=== PATIENT | male | born 1935 | race Caucasian/White ===

== ENCOUNTER 2017-05-18 10:12 | Inpatient (IN) | payer MEDICARE, BC ==
[~2017-05-18] VITALS: Ht 175.3 cm; Wt 71.5 kg
[~2017-05-18 10:12] MED LIST: ACET325T PO; AMBI5TAB PO; AMIO200T PO; AMLO5TAB2 PO; ASPI1TAB69 PO; ATOR1TAB18 PO; CLIN1CAP5 PO; HYDR25TA35 PO; METO25TA6 PO; MILKSUS PO; NITR1SUB3 SL; OMEP20TA PO; SITA1TAB2 PO; TRAM50TA PO
--- NOTE | 2017-05-18 11:00 | PD ---
HPI Chief Complaint: General Weakness Time Seen by Provider: 10:44 Travel History International Travel<30 days: No Contact w/Intl Traveler<30days: No Traveled to known affect area: No History of Present Illness HPI 82-year-old male complains of generalized malaise and weakness. Patient has intermittent abdominal pain with bowel incontinence for the past 2 weeks. Patient was seen by personal physician and referred to GI specialist Dr. Law. Patient had an MRI of the abdomen done at [facility] recently. MRI was positive for gallstone and fluid in the lung. Patient's daughter reported patient has generalized malaise and weakness for the past week. Patient also complaint of dysuria for the past week. Patient's daughter states the patient has increasing lower extremity edema for the past week also. Patient complains shortness of breath. Patient denies any coughing. Patient' s daughter states the patient has been contacted chested for the past week. Patient daughter states patient has been confused and with hallucination recently. Patient daughter states the patient fell this morning however did not injure himself. Patient has history of hypertension, diabetes, CHF. Patient has been seen by Dr. Oviedo. [facility] Past Medical History Congestive Heart Failure: Yes Diabetes: Yes Patient Takes Glucophage: No Diminished Hearing: Yes Hypertension: Yes Integumentary: Yes (DRY, SCALY SKIN ) Tetanus Vaccination: Unknown ?: Not Past Surgical History Coronary Stent: Yes Social History Alcohol Use: Yes Tobacco Use: Yes Substance Use: No Allergies-Medications (Allergen,Severity, Reaction): Coded Allergies: No Known Allergies (Unverified , 05/18/17) Reported Meds & Prescriptions Reported Meds & Active Scripts Active Tramadol (Tramadol HCl) 50 Mg Tab 50 Mg PO Q6H PRN Reported Trazodone (Trazodone HCl) 100 Mg Tablet 200 Mg PO HS Aspirin 81 Mg Chew 200 Mg CHEW BID Nitroglycerin SL (Nitroglycerin) 0.4 Mg Subl 0.4 Mg SL DIRECTED PRN ONE TABLET UNDER THE TONGUE NEEDED FOR CHEST PAIN, MAY REPEAT EVERY FIVE MINUTES FOR A TOTAL OF 3 DOSES OR CALL 911 IF NO RELIEF Januvia (Sitagliptin Phosphate) 100 Mg Tab 100 Mg PO DAILY Omeprazole 20 Mg Tab 20 Mg PO DAILY Metoprolol Succinate ER 24 HR (Metoprolol Succinate) 25 Mg Tab 25 Mg PO BID Ambien (Zolpidem Tartrate) 5 Mg Tab 5 Mg PO HS PRN Review of Systems General / Constitutional: No: Fever Eyes: No: Visual changes HENT: No: Headaches Cardiovascular: No: Chest Pain or Discomfort Respiratory: No: Shortness of Breath Gastrointestinal: Positive: Abdominal Pain Genitourinary: Positive: Dysuria Musculoskeletal: No: Pain Skin: No Rash Neurologic: No: Weakness Psychiatric: No: Depression Endocrine: No: Polydipsia Hematologic/Lymphatic: No: Easy Bruising Physical Exam Narrative GENERAL: Well-nourished, well-developed patient. SKIN: Focused skin assessment warm/dry. HEAD: Normocephalic. EYES: No scleral icterus. No injection or drainage. NECK: Supple, trachea midline. No JVD or lymphadenopathy. CARDIOVASCULAR: Regular rate and rhythm without murmurs, gallops, or rubs. RESPIRATORY: Breath sounds equal bilaterally. No accessory muscle use. Rhonchi at the bases. GASTROINTESTINAL: Abdomen soft, non-tender, nondistended. MUSCULOSKELETAL: Patient has +2 pitting edema most remedy. BACK: Nontender without obvious deformity. No CVA tenderness. Neurologic exam: Patient awake and alert oriented to person. Patient moves all extremity well. No obvious focal neurological deficit. Data Data Last Documented VS Vital Signs Date Time Temp Pulse Resp B/P Pulse Ox O2 Delivery O2 Flow Rate FiO2 05/18/17 12:27 78 20 191/97 96 Room Air Orders Electrocardiogram (05/18/17 10:53) Complete Blood Count With Diff (05/18/17 10:53) Comprehensive Metabolic Panel (05/18/17 10:53) Creatine Kinase (Cpk) (05/18/17 10:53) Troponin I (05/18/17 10:53) B-Type Natriuretic Peptide (05/18/17 10:53) Prothrombin Time / Inr (Pt) (05/18/17 10:53) Act Partial Throm Time (Ptt) (05/18/17 10:53) Blood Culture (05/18/17 10:53) Urinalysis - C+S If Indicated (05/18/17 10:53) Magnesium (Mg) (05/18/17 10:53) Thyroid Stimulating Hormone (05/18/17 10:53) Phosphorus (Po4) (05/18/17 10:53) Chest, Single Ap (05/18/17 10:53) Ct Brain W/O Iv Contrast(Rout) (05/18/17 10:53) Iv Access Insert/Monitor (05/18/17 10:53) Ecg Monitoring (05/18/17 10:53) Oximetry (05/18/17 10:53) Lactic Acid (05/18/17 10:53) Urinary Catheter Insert/Apply (05/18/17 12:04) Urine Culture (05/18/17 12:15) Prothrombin Time / Inr (Pt) (05/18/17 13:26) Act Partial Throm Time (Ptt) (05/18/17 13:26) Labs Laboratory Tests Test 05/18/17 05/18/17 11:45 12:15 White Blood Count 8.7 TH/MM3 Red Blood Count 4.75 MIL/MM3 Hemoglobin 14.2 GM/DL Hematocrit 43.6 % Mean Corpuscular Volume 91.7 FL Mean Corpuscular Hemoglobin 29.8 PG Mean Corpuscular Hemoglobin 32.5 % Concent Red Cell Distribution Width 14.2 % Platelet Count 158 TH/MM3 Mean Platelet Volume 7.3 FL Neutrophils (%) (Auto) 74.1 % Lymphocytes (%) (Auto) 14.3 % Monocytes (%) (Auto) 9.1 % Eosinophils (%) (Auto) 1.9 % Basophils (%) (Auto) 0.6 % Neutrophils # (Auto) 6.5 TH/MM3 Lymphocytes # (Auto) 1.2 TH/MM3 Monocytes # (Auto) 0.8 TH/MM3 Eosinophils # (Auto) 0.2 TH/MM3 Basophils # (Auto) 0.1 TH/MM3 CBC Comment DIFF FINAL Differential Comment Prothrombin Time 35.5 SEC Prothromb Time International 3.1 RATIO Ratio Activated Partial GREATER THAN Thromboplast Time 277.5 SEC Sodium Level 139 MEQ/L Potassium Level 3.7 MEQ/L Chloride Level 101 MEQ/L Carbon Dioxide Level 28.9 MEQ/L Anion Gap 9 MEQ/L Blood Urea Nitrogen 15 MG/DL Creatinine 1.15 MG/DL Estimat Glomerular Filtration 61 ML/MIN Rate Random Glucose 95 MG/DL Lactic Acid Level 1.2 mmol/L Calcium Level 8.9 MG/DL Phosphorus Level 2.4 MG/DL Magnesium Level 1.8 MG/DL Total Bilirubin 1.1 MG/DL Aspartate Amino Transf 19 U/L (AST/SGOT) Alanine Aminotransferase 12 U/L (ALT/SGPT) Alkaline Phosphatase 69 U/L Total Creatine Kinase 109 U/L Troponin I 0.92 NG/ML B-Type Natriuretic Peptide 3839 PG/ML Total Protein 7.2 GM/DL Albumin 3.7 GM/DL Thyroid Stimulating Hormone 1.620 uIU/ML 3rd Gen Urine Color LIGHT-YELLOW Urine Turbidity CLEAR Urine pH 7.5 Urine Specific [place] 1.008 Urine Protein 30 mg/dL Urine Glucose (UA) NEG mg/dL Urine Ketones TRACE mg/dL Urine Occult Blood SMALL Urine Nitrite NEG Urine Bilirubin NEG Urine Urobilinogen LESS THAN 2.0 MG/DL Urine Leukocyte Esterase TRACE Urine RBC 6 /hpf Urine WBC 10 /hpf Urine Bacteria OCC /hpf Urine Mucus FEW /lpf Microscopic Urinalysis Comment CULTURE INDICATED MDM Medical Decision Making Medical Screen Exam Complete: Yes Emergency Medical Condition: Yes Interpretation(s) Last Impressions Head CT 05/18/17 1053 Signed Impressions: Service Date/Time: Thursday, May 18, 2017 12:25 - CONCLUSION: Aging brain with generalized volume loss. Calcific atherosclerotic vascular disease. No evidence of acute infarct, hemorrhage, mass or edema. Neville Obrien MD Chest X-Ray 05/18/17 1053 Signed Impressions: Service Date/Time: Thursday, May 18, 2017 10:57 - CONCLUSION: Cardiomegaly with mild congestive failure. Minimal bibasilar parenchymal changes. Stephen Eric MD FACR 1315 p.m. CBC within normal limit. CMP within normal limit. Phosphorus 2.4. Total bili 1.1. Troponin 0.92. BNP 3839. Lactic acid 1.2. UA positive for WBC and bacteria. Differential Diagnosis Differential diagnosis including CHF, TIA, CVA, electrolyte abnormality, dehydration, UTI, pneumonia, sepsis Narrative Course 82-year-old male with generalized malaise and weakness and lower extremity edema. Lasix 40 mg IV given. Rocephin 1 g IV given. Diagnosis Primary Impression: Acute exacerbation of CHF (congestive heart failure) Qualified Code: I50.9 - Acute on chronic congestive heart failure, unspecified congestive heart failure type Additional Impressions: UTI (urinary tract infection) Qualified Code: N30.00 - Acute cystitis without hematuria Elevated troponin Trey Lyons MD May 18, 2017 11:00
[2017-05-18] MEDS ORDERED: ASPI81CH CHEW (11:29)
[2017-05-18] MEDS ORDERED: TRAZ100T6 PO (11:29)
--- NOTE | 2017-05-18 11:44 | RADRPT ---
EXAM DATE/TIME: 05/18/2017 10:57 [facility] COMPARISON: No previous studies available for comparison. INDICATIONS : Altered mental status. MEDICAL HISTORY : Hypertension. Congestive heart failure. Diabetes. SURGICAL HISTORY : Coronary artery stent. ENCOUNTER: Initial ACUITY: 1 day PAIN SCORE: Non-responsive. LOCATION: Bilateral chest FINDINGS: The heart is enlarged moderate bibasilar parenchymal changes and minimal congestive failure. The port ion of the bony skeleton visualized is unremarkable. CONCLUSION: Cardiomegaly with mild congestive failure. Minimal bibasilar parenchymal changes. Stephen Eric MD FACR on May 18, 2017 at 11:41 Board Certified Radiologist. This report was verified electronically.
[2017-05-18 12:22] LABS: AUTOMATED NEUTROPHIL # 6.5 TH/MM3 (1.8-7.7); BASOPHIL # 0.1 TH/MM3 (0-0.2); BASOPHIL % 0.6 % (0.0-2.0); EOSINOPHIL # 0.2 TH/MM3 (0-0.4); EOSINOPHIL % 1.9 % (0.0-4.0); HEMATOCRIT 43.6 % (39.0-51.0); HEMO FLAGS DIFF FINAL; LYMPH % 14.3 % (9.0-44.0); LYMPHOCYTE # 1.2 TH/MM3 (1.0-4.8); MEAN CELL VOLUME 91.7 FL (80.0-100.0); MEAN CORPUSCULAR HEMOGLOBIN 29.8 PG (27.0-34.0); MEAN CORPUSCULAR HGB CONC 32.5 % (32.0-36.0); MONO % 9.1 % (0.0-8.0); NEUT % 74.1 % (16.0-70.0); PLATELET COUNT 158 TH/MM3 (150-450); RED BLOOD COUNT 4.75 MIL/MM3 (4.50-5.90); RED CELL DISTRIBUTION WIDTH 14.2 % (11.6-17.2); WHITE BLOOD COUNT 8.7 TH/MM3 (4.0-11.0)
[2017-05-18 12:27] VITALS: BP 191/97; PULSE 78; RESP 20; O2SAT 96
--- NOTE | 2017-05-18 12:38 | RADRPT ---
EXAM DATE/TIME: 05/18/2017 12:25 [facility] COMPARISON: No previous studies available for comparison. INDICATIONS : Altered mental status. RADIATION DOSE: 44.47 CTDIvol (mGy) ; Patient motion MEDICAL HISTORY : Cardiovascular disease. Hypertension. SURGICAL HISTORY : None. ENCOUNTER: Initial ACUITY: 1 day PAIN SCALE: Non-responsive LOCATION: Bilateral cranial TECHNIQUE: Multiple contiguous axial images were obtained of the head. Using automated exposure control and adj ustment of the mA and/or kV according to patient size, radiation dose was kept as low as reasonably a chievable to obtain optimal diagnostic quality images. DICOM format image data is available electro nically for review and comparison. FINDINGS: CEREBRUM: Generalized volume loss consistent with an aging brain is noted. Calcific atherosclerotic disease is identified in the proximal intracranial vessels. No evidence of midline shift, mass lesion, hemorrha ge or acute infarction. No extra-axial fluid collections are seen. POSTERIOR FOSSA: The cerebellum and brainstem are intact. The 4th ventricle is midline. The cerebellopontine angle i s unremarkable. EXTRACRANIAL: The visualized portion of the orbits is intact. SKULL: The calvaria is intact. No evidence of skull fracture. CONCLUSION: Aging brain with generalized volume loss. Calcific atherosclerotic vascular disease. No evidence of acute infarct, hemorrhage, mass or edema. Neville Obrien MD on May 18, 2017 at 12:35 Board Certified Radiologist. This report was verified electronically.
[2017-05-18 12:48] LABS: ALT (GPT) 12 U/L (12-78); ANION GAP 9 MEQ/L (5-15); AST (GOT) 19 U/L (15-37); BICARBONATE 28.9 MEQ/L (21.0-32.0); BLOOD UREA NITROGEN 15 MG/DL (7-18); CHLORIDE 101 MEQ/L (98-107); GLOMERULAR FILTRATION RATE 61 ML/MIN (>89); MAGNESIUM 1.8 MG/DL (1.5-2.5); POTASSIUM 3.7 MEQ/L (3.5-5.1); SODIUM (NA) 139 MEQ/L (136-145)
[2017-05-18 12:49] LABS: BACTERIA, URINE OCC /hpf; BLOOD, URINE SMALL (NEG); COMMENT (UR) CULTURE INDICATED; CULTURE IF INDICATED CULTURE INDICATED; GLUCOSE,URINE NEG (NEG); KETONE, URINE TRACE mg/dL (NEG); MUCUS URINE FEW /lpf (OCC); NITRITE,URINE NEG (NEG); PH, URINE 7.5 (5.0-8.5); URINE COLOR LIGHT-YELLOW (YELLW/STRAW)
[2017-05-18 12:59] LABS: ALKALINE PHOSPHATASE 69 U/L (45-117); CREATINE KINASE 109 U/L (39-308); TOTAL BILIRUBIN ADULT 1.1 MG/DL (0.2-1.0)
[2017-05-18 13:15] LABS: INTERNATIONAL NORMALIZED RATIO 3.1 RATIO; PROTHROMBIN TIME - PATIENT 35.5 SEC (9.8-11.6)
[2017-05-18 13:21] LABS: APTT (PATIENT) GREATER THAN 277.5 SEC (24.3-30.1)
[2017-05-18] MEDS ORDERED: cefTRIAXone INJ 1,000 MG in SODIUM CHLORIDE 0.9% INJ 100 ML IV ONE (13:30)
[2017-05-18] MEDS ORDERED: FUROSEMIDE 40 MG/4 ML VIAL IV PUSH ONE (13:30)
[2017-05-18] MEDS ORDERED: SENNOSIDES 8.6 MG TAB PO PRN (13:45)
[2017-05-18] MEDS ORDERED: BISACODYL 10 MG SUPP RECTAL PRN (13:45)
[2017-05-18] MEDS ORDERED: MAGNESIUM HYDROXIDE SUSP 30 ML CUP PO PRN (13:45)
[2017-05-18] MEDS ORDERED: NALOXONE HCL 0.4 MG/ML AMP IV PRN (13:45)
[2017-05-18] MEDS ORDERED: ACETAMINOPHEN 325 MG TAB PO PRN (13:45)
[2017-05-18] MEDS ORDERED: SODIUM CHLORIDE 0.9% FLUSH 10 ML FLUSH IV FLUSH PRN (13:45)
[2017-05-18] MEDS ORDERED: LACTULOSE SYRUP 20 GM/30 ML CUP PO PRN (13:45)
[2017-05-18 14:47] VITALS: BP 198/100; PULSE 84; RESP 22; TEMP 98.3; O2SAT 88
[2017-05-18 16:14] LABS: APTT (PATIENT) 30.2 SEC (24.3-30.1); INTERNATIONAL NORMALIZED RATIO 1.1 RATIO; PROTHROMBIN TIME - PATIENT 12.1 SEC (9.8-11.6)
--- NOTE | 2017-05-18 16:20 | EKG ---
Date Performed: 05/18/2017 Time Performed: 10:24:40 PTAGE: 82 years EKG: ATRIAL FIBRILLATION INDETERMINATE AXIS POSSIBLE LATERAL MYOCARDIAL INFARCTION ABNORMAL ECG NO PREVIOUS TRACING DOCTOR: Alf Garnica Interpretating Date/Time 05/18/2017 16:18:13
[2017-05-18] MEDS ORDERED: DEXTROSE 50% IN WATER 50 ML VIAL(D50) IV PRN (17:30)
[2017-05-18] MEDS ORDERED: GLUCAGON 1 MG/ML VIAL OTHER PRN (17:30)
--- NOTE | 2017-05-18 17:31 | HHI.HP ---
[facility] Service [facility] Primary Care Physician Jamaal Oviedo MD Admission Diagnosis acute exacerbation CHF. UTI. Elevated troponin. Diagnoses: Chief Complaint: Generalized weakness Travel History International Travel<30 Days: No Contact w/Intl Traveler <30 Da: No Traveled to Known Affected Are: No History of Present Illness Written by Quinten Toscano, acting as scribe for Dr. Chaves on 05/18/17 at 17:13. This note was transcribed by scribe SIA Riley on 05/18/2017. I, Dr. Justin Chaves personally performed the history, physical exam, and medical decision making; and confirmed the accuracy of the information in the transcribed note. Authenticated by Dr. Justin Chaves on 05/19/17 at 00:02. 82-year-old male with a past medical history of CAD, CHF, DM, HTN, GERD, depression who was brought in by his daughter secondary to generalized weakness 1 week. The patient's daughter is not at bedside and the patient is not a great historian. The patient states that he came because he "felt awful" but cannot really elaborate. He states that he feels fine now. When asked if he has been feeling weak, the patient states that he has felt weak for the last hour. He denies any chest pain, nausea, vomiting, sweats, abdominal pain, constipation, diarrhea. The patient has noticed some shortness of breath. It seems like he is having shortness of breath with exertion. When asked if he has any heart disease, he does believe that he had one coronary stent put in 2 years ago, does not know who his binder fixer is. Review of Systems ROS Limitations: Poor Historian Except as stated in HPI: all other systems reviewed are Neg Past Family Social History Past Medical History Coronary artery disease Congestive heart failure Diabetes mellitus Hypertension GERD Depression Past Surgical History Stent placement 2 years ago Patient denies any other major surgeries Reported Medications Reported Meds & Active Scripts Active Tramadol (Tramadol HCl) 50 Mg Tab 50 Mg PO Q6H PRN Reported Trazodone (Trazodone HCl) 100 Mg Tablet 200 Mg PO HS Aspirin 81 Mg Chew 200 Mg CHEW BID Nitroglycerin SL (Nitroglycerin) 0.4 Mg Subl 0.4 Mg SL DIRECTED PRN ONE TABLET UNDER THE TONGUE NEEDED FOR CHEST PAIN, MAY REPEAT EVERY FIVE MINUTES FOR A TOTAL OF 3 DOSES OR CALL 911 IF NO RELIEF Januvia (Sitagliptin Phosphate) 100 Mg Tab 100 Mg PO DAILY Omeprazole 20 Mg Tab 20 Mg PO DAILY Metoprolol Succinate ER 24 HR (Metoprolol Succinate) 25 Mg Tab 25 Mg PO BID Ambien (Zolpidem Tartrate) 5 Mg Tab 5 Mg PO HS PRN Allergies: Coded Allergies: No Known Allergies (Unverified , 05/18/17) Active Ordered Medications Current Medications Medications (Trade) Dose Ordered Sig/Kevon Route Start Time Stop Time Status Last Admin (NS Flush) 2 ml UNSCH PRN IV FLUSH 05/18/17 13:45 (NS Flush) 2 ml BID IV FLUSH 05/18/17 21:00 (Tylenol) 650 mg Q4H PRN PO 05/18/17 13:45 (Narcan Inj) 0.4 mg UNSCH PRN IV 05/18/17 13:45 (Shanell-Colace) 1 tab BID PO 05/18/17 21:00 (Milk Of Magnesia Liq) 30 ml Q12H PRN PO 05/18/17 13:45 (Senokot) 17.2 mg Q12H PRN PO 05/18/17 13:45 (Dulcolax Supp) 10 mg DAILY PRN RECTAL 05/18/17 13:45 (Lactulose Liq) 30 ml DAILY PRN PO 05/18/17 13:45 (Lasix Inj) 40 mg BID@,18 IV PUSH 05/18/17 18:00 Family History Denies any family history of dementia Social History Patient states he quit smoking and drinking earlier this year Lives at home with "one of his kids". . Physical Exam Vital Signs Vital Signs Date Time Temp Pulse Resp B/P Pulse Ox O2 Delivery O2 Flow Rate FiO2 05/18/17 14:47 98.3 84 22 198/100 88 Room Air 05/18/17 12:27 78 20 191/97 96 Room Air Physical Exam GENERAL: Well-developed well-nourished. In no acute distress. SKIN: Warm and dry. Venous stasis changes of the lower extremities with healing scabs. HEENT: Normocephalic. Pupils equal and round. Mucous membranes pink and moist. CARDIOVASCULAR: Regular rate and rhythm. Systolic murmur appreciated. RESPIRATORY: No accessory muscle use. Clear to auscultation. Breath sounds equal bilaterally. GASTROINTESTINAL: Abdomen soft, non-tender, nondistended. Bowel sounds x4. MUSCULOSKELETAL: No obvious deformities. No clubbing or cyanosis. 1+ bilateral lower extremity edema. NEUROLOGICAL: Awake and alert. No focal neurological deficits. Moves upper and lower extremities spontaneously. Normal speech. PSYCHIATRIC: Appropriate mood and affect; insight and judgment fair. Laboratory Laboratory Tests Test 05/18/17 05/18/17 05/18/17 11:45 12:15 15:45 White Blood Count 8.7 Red Blood Count 4.75 Hemoglobin 14.2 Hematocrit 43.6 Mean Corpuscular Volume 91.7 Mean Corpuscular Hemoglobin 29.8 Mean Corpuscular Hemoglobin 32.5 Concent Red Cell Distribution Width 14.2 Platelet Count 158 Mean Platelet Volume 7.3 Neutrophils (%) (Auto) 74.1 Lymphocytes (%) (Auto) 14.3 Monocytes (%) (Auto) 9.1 Eosinophils (%) (Auto) 1.9 Basophils (%) (Auto) 0.6 Neutrophils # (Auto) 6.5 Lymphocytes # (Auto) 1.2 Monocytes # (Auto) 0.8 Eosinophils # (Auto) 0.2 Basophils # (Auto) 0.1 CBC Comment DIFF FINAL Differential Comment Prothrombin Time 35.5 12.1 Prothromb Time International 3.1 1.1 Ratio Activated Partial GREATER THAN 30.2 Thromboplast Time 277.5 Sodium Level 139 Potassium Level 3.7 Chloride Level 101 Carbon Dioxide Level 28.9 Anion Gap 9 Blood Urea Nitrogen 15 Creatinine 1.15 Estimat Glomerular Filtration 61 Rate Random Glucose 95 Lactic Acid Level 1.2 Calcium Level 8.9 Phosphorus Level 2.4 Magnesium Level 1.8 Total Bilirubin 1.1 Aspartate Amino Transf 19 (AST/SGOT) Alanine Aminotransferase 12 (ALT/SGPT) Alkaline Phosphatase 69 Total Creatine Kinase 109 Troponin I 0.92 0.81 B-Type Natriuretic Peptide 3839 Total Protein 7.2 Albumin 3.7 Thyroid Stimulating Hormone 1.620 3rd Gen Urine Color LIGHT-YELLOW Urine Turbidity CLEAR Urine pH 7.5 Urine Specific [place] 1.008 Urine Protein 30 Urine Glucose (UA) NEG Urine Ketones TRACE Urine Occult Blood SMALL Urine Nitrite NEG Urine Bilirubin NEG Urine Urobilinogen LESS THAN 2.0 Urine Leukocyte Esterase TRACE Urine RBC 6 Urine WBC 10 Urine Bacteria OCC Urine Mucus FEW Microscopic Urinalysis Comment CULTURE INDICATED Date/Time Procedure Status Source Growth 05/18/17 12:15 Urine Culture Received Urine Clean Catch Pending 05/18/17 11:55 Aerobic Blood Culture Received Blood Peripheral Pending 05/18/17 11:55 Anaerobic Blood Culture Received Blood Peripheral Pending Result Diagram: 05/18/17 1145 05/18/17 1145 Imaging Last Impressions Head CT 05/18/17 1053 Signed Impressions: Service Date/Time: Thursday, May 18, 2017 12:25 - CONCLUSION: Aging brain with generalized volume loss. Calcific atherosclerotic vascular disease. No evidence of acute infarct, hemorrhage, mass or edema. Neville Obrien MD Chest X-Ray 05/18/17 1053 Signed Impressions: Service Date/Time: Thursday, May 18, 2017 10:57 - CONCLUSION: Cardiomegaly with mild congestive failure. Minimal bibasilar parenchymal changes. Stephen Eric MD FACR Assessment and Plan Assessment and Plan 82-year-old male with a past medical history of CAD, CHF, DM, HTN, GERD, depression who was brought in by his daughter secondary to generalized weakness 1 week Generalized weakness: Unclear etiology, possibly secondary to underlying CAD/ CHF or UTI. -Treatment for possible underlying cardiac disease or infection as below -PT eval when improved NSTEMI: No specific complaints of chest pain but has had generalized weakness and shortness of breath. Troponin 0.92, 0.81, third set pending. EKG reviewed with possible A. fib, no definite ischemic changes. -Aspirin 1 now, continue Aggrenox -Start heparin GGT -Continue serial cardiac enzymes and EKGs, consider cardiology consultation depending on the results. Acute CHF exacerbation: Reported history of CHF by history, unknown type. Chest x-ray showing mild congestive failure. BNP 3839. -Diuresis with IV Lasix -Check echocardiogram UTI: UA with evidence of UTI. -Continue empiric IV Rocephin and follow-up urine culture. Discussed Condition With Patient, ED staff Quinten Toscano May 18, 2017 17:30 Unique Chaves DO May 19, 2017 00:03
[2017-05-18] MEDS: FUROSEMIDE 40 MG/4 ML VIAL IV PUSH SCH (17:44)
[2017-05-18] MEDS: cefTRIAXone INJ 1,000 MG in SODIUM CHLORIDE 0.9% INJ 100 ML IV SCH (17:45)
[2017-05-18] MEDS: HEPARIN-D5W INJ 250 ML IV SCH (17:46)
[2017-05-18] MEDS ORDERED: ASPI1CAP PO (17:53)
[2017-05-18] MEDS ORDERED: ASPIRIN EC 81 MG TABEC PO ONE (18:00)
[2017-05-18 18:07] VITALS: BP 185/99; PULSE 79; RESP 14; O2SAT 98
[2017-05-18 19:15] VITALS: BP 185/91; PULSE 79; RESP 20; TEMP 97.6; O2SAT 95
[2017-05-18 20:15] VITALS: BP 170/75; PULSE 80; RESP 20; O2SAT 97
[2017-05-18] MEDS: INSULIN ASPART SUPPLEMENTAL SCALE SQ SCH (21:45)
[2017-05-18 22:00] VITALS: BP 163/76; PULSE 94; RESP 20; O2SAT 97
[2017-05-18] MEDS: DOCUSATE SODIUM 50 MG/SENNA 8.6 MG TAB PO SCH (22:00)
[2017-05-18] MEDS: traZODone HCL 100 MG TAB PO SCH (22:01)
[2017-05-18] MEDS: METOPROLOL SUCCINATE 25 MG EXTENDED RELEASE TAB PO SCH (22:01)
[2017-05-18] MEDS: DIPYRIDAMOLE/ASPIRIN 200 MG/25 MG CAP PO SCH (22:01)
[2017-05-18] MEDS: SODIUM CHLORIDE 0.9% FLUSH 10 ML FLUSH IV FLUSH SCH (22:02)
[2017-05-19] VITALS (9 sets, daily range): BP systolic 139–206; BP diastolic 71–102; PULSE 69–98; RESP 16–21; TEMP 97.7–98.4; O2SAT 96–98
[2017-05-19 00:22] LABS: INTERNATIONAL NORMALIZED RATIO 1.1 RATIO; PROTHROMBIN TIME - PATIENT 12.7 SEC (9.8-11.6)
[2017-05-19] MEDS ORDERED: CHLORHEXIDINE GLUCONATE 2 % 1 PACK (2 CLOTHS)(extra cloths) TOPICAL PRN (04:45)
[2017-05-19] MEDS: INSULIN ASPART SUPPLEMENTAL SCALE SQ SCH ×4 (05:27→21:00)
[2017-05-19 08:41] LABS: AUTOMATED NEUTROPHIL # 7.6 TH/MM3 (1.8-7.7); BASOPHIL # 0.1 TH/MM3 (0-0.2); BASOPHIL % 1.1 % (0.0-2.0); EOSINOPHIL # 0.2 TH/MM3 (0-0.4); EOSINOPHIL % 1.8 % (0.0-4.0); HEMATOCRIT 45.1 % (39.0-51.0); HEMO FLAGS DIFF FINAL; LYMPH % 16.4 % (9.0-44.0); LYMPHOCYTE # 1.8 TH/MM3 (1.0-4.8); MEAN CELL VOLUME 90.8 FL (80.0-100.0); MEAN CORPUSCULAR HGB CONC 33.1 % (32.0-36.0); NEUT % 70.7 % (16.0-70.0); PLATELET COUNT 143 TH/MM3 (150-450); RED BLOOD COUNT 4.97 MIL/MM3 (4.50-5.90); RED CELL DISTRIBUTION WIDTH 14.4 % (11.6-17.2); WHITE BLOOD COUNT 10.7 TH/MM3 (4.0-11.0)
--- NOTE | 2017-05-19 08:51 | HHI.PR ---
Subjective Remarks in no acute distress, however confused. agitated at times. denies pain. d/w the RN and no acute issues over night. Objective Vitals Vital Signs Date Time Temp Pulse Resp B/P Pulse Ox O2 Delivery O2 Flow Rate FiO2 05/19/17 04:00 97.7 98 18 140/97 96 05/19/17 03:09 88 16 139/94 96 Room Air 05/19/17 02:30 83 20 178/85 96 Room Air 05/19/17 01:00 82 18 141/95 97 Room Air 05/19/17 00:00 88 20 153/94 97 Room Air 05/18/17 22:00 94 20 163/76 97 Room Air 05/18/17 20:15 80 20 170/75 97 05/18/17 19:15 97.6 79 20 185/91 95 Room Air 05/18/17 18:07 79 14 185/99 98 05/18/17 14:47 98.3 84 22 198/100 88 Room Air 05/18/17 12:27 78 20 191/97 96 Room Air I/O 05/18/17 05/18/17 05/18/17 05/19/17 05/19/17 05/19/17 06:59 14:59 22:59 06:59 14:59 22:59 Intake Total 78 ml Output Total 750 ml 2700 ml 700 ml Balance -750 ml -2700 ml -622 ml Intake Oral 0 ml IV Total 78 ml Output Urine Total 750 ml 2700 ml 700 ml # Bowel Movements 0 Result Diagram: 05/19/17 0829 05/18/17 1145 Imaging Last Impressions Head CT 05/18/17 1053 Signed Impressions: Service Date/Time: Thursday, May 18, 2017 12:25 - CONCLUSION: Aging brain with generalized volume loss. Calcific atherosclerotic vascular disease. No evidence of acute infarct, hemorrhage, mass or edema. Neville Obrien MD Chest X-Ray 05/18/17 1053 Signed Impressions: Service Date/Time: Thursday, May 18, 2017 10:57 - CONCLUSION: Cardiomegaly with mild congestive failure. Minimal bibasilar parenchymal changes. Stephen Eric MD FACR Objective Remarks GENERAL: in no apparent distress. CARDIOVASCULAR: Regular rate and regular rhythm without murmurs, gallops, or rubs. RESPIRATORY: Clear to auscultation. Breath sounds equal bilaterally. No wheezes , rales, or rhonchi. GASTROINTESTINAL: Abdomen soft, non-tender, nondistended. Normal, active bowel sounds MUSCULOSKELETAL: Extremities without clubbing, cyanosis, or edema. NEURO: awake, alert but not oriented to place or time. Medications and IVs Current Medications Furosemide 40 mg 40 mg ONCE ONCE IV PUSH Last administered on 05/18/17 14:16; Start 05/18/17 at 13:30; Stop 05/18/17 at 13:37; Status DC Ceftriaxone Sodium/Sodium Chloride (Rocephin Inj/NS Inj) 100 ml @ 200 mls/hr ONCE ONCE IV Last administered on 05/18/17 14:15; Start 05/18/17 at 13:30; Stop 05/18/17 at 13:59; Status DC Sodium Chloride (NS Flush) 2 ml UNSCH PRN IV FLUSH FLUSH AFTER USING IV ACCESS ; Start 05/18/17 at 13:45 Sodium Chloride (NS Flush) 2 ml BID IV FLUSH Last administered on 05/18/17 22: 02; Start 05/18/17 at 21:00 Acetaminophen (Tylenol) 650 mg Q4H PRN PO Fever, headache, pain 1-4; Start 05/18 at 13:45 Naloxone HCl (Narcan Inj) 0.4 mg UNSCH PRN IV SEE LABEL COMMENTS; Start at 13:45 Senna/Docusate Sodium (Shanell-Colace) 1 tab BID PO ; Start 05/18/17 at 21:00 Magnesium Hydroxide (Milk Of Magnesia Liq) 30 ml Q12H PRN PO MILD - MODERATE CONSTIPATION; Start 05/18/17 at 13:45 Sennosides (Senokot) 17.2 mg Q12H PRN PO MODERATE - SEVERE CONSTIPATION Last administered on 05/18/17 22:01; Start 05/18/17 at 13:45 Bisacodyl (Dulcolax Supp) 10 mg DAILY PRN RECTAL SEVERE CONSITIPATION; Start at 13:45 Lactulose (Lactulose Liq) 30 ml DAILY PRN PO SEVERE CONSITIPATION; Start at 13:45 Furosemide 40 mg 40 mg BID@09,18 IV PUSH Last administered on 05/18/17 17:44; Start 05/18/17 at 18:00 Heparin Sodium/ Dextrose (Heparin-D5W Inj) 250 ml @ 0 mls/hr TITRATE IV Last administered on 05/18/17 17:46; Start 05/18/17 at 17:15 Aspirin 162 mg 162 mg ONCE ONCE PO Last administered on 05/18/17 17:58; Start 05/18/17 at 18:00; Stop 05/18/17 at 18:02; Status DC Ceftriaxone Sodium/Sodium Chloride (Rocephin Inj/NS Inj) 100 ml @ 200 mls/hr Q24H IV Last administered on 05/18/17 17:45; Start 05/18/17 at 18:00 Dipyridamole/ Aspirin (Aggrenox 200-25 Mg) 1 cap BID PO Last administered on 22:01; Start 05/18/17 at 21:00 Metoprolol Succinate (Toprol Xl) 25 mg BID PO Last administered on 05/18/17 22: 01; Start 05/18/17 at 21:00 Tramadol HCl (Ultram) 50 mg Q6H PRN PO PAIN 5-10; Start 05/18/17 at 17:30 Zolpidem Tartrate (Ambien) 5 mg HS PRN PO INSOMNIA; Start 05/18/17 at 17:30 Pantoprazole Sodium (Protonix) 20 mg DAILY PO ; Start 05/19/17 at 09:00 Trazodone HCl (Desyrel) 200 mg HS PO Last administered on 05/18/17 22:01; Start 05/18/17 at 21:00 Dextrose (D50w (Vial) Inj) 50 ml UNSCH PRN IV HYPOGLYCEMIA-SEE COMMENTS; Start 05/18/17 at 17:30 Glucagon (Glucagon Inj) 1 mg UNSCH PRN OTHER HYPOGLYCEMIA-SEE COMMENTS; Start 05/18/17 at 17:30 Insulin Aspart (NovoLOG SUPPLEMENTAL SCALE) 1 ACHS SLIDING SCALE SQ Last administered on 05/18/17 21:45; Start 05/18/17 at 21:00 Miscellaneous Information Patient in critical care unit? Ass... Q361D .XX Last administered on 05/19/17 04:45; Start 05/19/17 at 04:45 Chlorhexidine Gluconate (Chlorhexidine 2% Cloth) 3 pack DAILY@04 TOPICAL ; Start 05/20/17 at 04:00; Stop 05/24/17 at 04:01 Chlorhexidine Gluconate (Chlorhexidine 2% Cloth) 3 pack UNSCH PRN TOPICAL HYGIENIC CARE; Start 05/19/17 at 04:45; Stop 05/24/17 at 04:36 A/P Assessment and Plan A/p Generalized weakness: Unclear etiology, possibly secondary to underlying CAD/ CHF or UTI. -Treatment for possible underlying cardiac disease or infection as below -PT eval after cardiology evaluation. NSTEMI: No specific complaints of chest pain but has had generalized weakness and shortness of breath. EKG reviewed with possible A. fib, no definite ischemic changes. -Aspirin 1 now, continue Aggrenox -continue heparin GGT -check echo and consult cardiology. Acute CHF exacerbation: Reported history of CHF by history, unknown type. Chest x-ray showing mild congestive failure. BNP 3839. -Diuresis with IV Lasix -Check echocardiogram UTI: UA with possible UTI -Continue empiric IV Rocephin and follow-up urine culture. DVT prophylaxis; on Heparin drip. d/w the RN. Johnson Jacobson MD May 19, 2017 08:51
[2017-05-19 09:02] LABS: APTT (PATIENT) 51.8 SEC (24.3-30.1)
[2017-05-19 09:28] LABS: ANION GAP 10 MEQ/L (5-15); BICARBONATE 28.7 MEQ/L (21.0-32.0); CHLORIDE 98 MEQ/L (98-107); GLOMERULAR FILTRATION RATE 54 ML/MIN (>89); POTASSIUM 3.5 MEQ/L (3.5-5.1); SODIUM (NA) 137 MEQ/L (136-145)
[2017-05-19] MEDS: METOPROLOL SUCCINATE 25 MG EXTENDED RELEASE TAB PO SCH ×2 (09:42→22:13)
[2017-05-19] MEDS: FUROSEMIDE 40 MG/4 ML VIAL IV PUSH SCH ×2 (09:42→17:00)
[2017-05-19] MEDS: SODIUM CHLORIDE 0.9% FLUSH 10 ML FLUSH IV FLUSH SCH ×2 (09:42→22:14)
[2017-05-19] MEDS: DOCUSATE SODIUM 50 MG/SENNA 8.6 MG TAB PO SCH ×2 (09:42→22:14)
[2017-05-19] MEDS: DIPYRIDAMOLE/ASPIRIN 200 MG/25 MG CAP PO SCH ×2 (09:42→22:13)
[2017-05-19] MEDS: PANTOPRAZOLE SOD 20 MG DELAYED RELEASE TAB PO SCH (09:42)
[2017-05-19 10:14] LABS: ALKALINE PHOSPHATASE 69 U/L (45-117); HDL CHOLESTEROL 74.4 MG/DL (40.0-60.0); LDL CHOLESTEROL 115 MG/DL (0-99); TOTAL BILIRUBIN ADULT 0.8 MG/DL (0.2-1.0)
[2017-05-19 10:35] LABS: ALT (GPT) 11 U/L (12-78); AST (GOT) 18 U/L (15-37); BLOOD UREA NITROGEN 16 MG/DL (7-18)
--- NOTE | 2017-05-19 15:36 | EKG ---
Date Performed: 05/18/2017 Time Performed: 22:48:16 PTAGE: 82 years EKG: ATRIAL FIBRILLATION WITH RAPID VENTRICULAR RESPONSE INCOMPLETE RIGHT BUNDLE BRANCH BLOCK LE FT ANTERIOR FASCICULAR BLOCK SEPTAL MYOCARDIAL INFARCTION MARKED ST DEPRESSION, CONSIDER SUBENDOCARD IAL INJURY ABNORMAL ECG NO PREVIOUS TRACING DOCTOR: Lynne Corona Interpretating Date/Time 05/19/2017 15:34:06
--- NOTE | 2017-05-19 15:45 | EKG ---
Date Performed: 05/18/2017 Time Performed: 16:47:14 PTAGE: 82 years EKG: Sinus rhythm WITH FREQUENT SUPRAVENTRICULAR PREMATURE COMPLEXES LATERAL MYOCARDIAL INFARCTION PREVIOUS TRACING : 05/18/2017 10.24 DOCTOR: Lynne Corona Interpretating Date/Time 05/19/2017 15:41:16
[2017-05-19 16:36] LABS: APTT (PATIENT) 47.7 SEC (24.3-30.1)
--- NOTE | 2017-05-19 16:57 | ECHRPT ---
Indication: sob CONCLUSIONS The left ventricular systolic function is pmypkroe-eb-dhudmfy reduced with an estimated ejection fra ction in the range of 35-40%. Normal left ventricular size. Moderate concentric left ventricular hypertrophy. Inferior wall hypokinesis.Moderate mitral annular calcification. Mild mitral valve regurgitation. The mitral valve area by Pressure Halftime Method is 1.9 cm. Diffuse calcification of the aortic valve. Trace aortic valve regurgitation. Aortic valve mean gradient is 36 mmHg. Aortic valve area is 0.44 cm. max 62 mmhg There is mild tricuspid valve regurgitation. The estimated pulmonary arterial pressure is _39_ mmHg. The pulmonary valve is not well visualized. BP: / HR: Rhythm: MEASUREMENTS (Male / Female) Normal Values Technical Quality:Good 2D ECHO LV Diastolic Diameter PLAX 5.0 cm 4.2 - 5.9 / 3.9 - 5.3 cm LV Systolic Diameter PLAX 4.3 cm IVS Diastolic Thickness 2.0 cm 0.6 - 1.0 / 0.6 - 0.9 cm LVPW Diastolic Thickness 0.9 cm 0.6 - 1.0 / 0.6 - 0.9 cm LV Relative Wall Thickness 0.6 RV Internal Dim ED PLAX 3.6 cm M-MODE Aortic Root Diameter MM 3.6 cm AV Cusp Separation MM 1.1 cm DOPPLER AV Peak Velocity 332.4 cm/s AV Peak Gradient 44.2 mmHg AV Mean Gradient 36.0 mmHg AV Velocity Time Integral 86.4 cm LVOT Peak Velocity 63.9 cm/s LVOT Peak Gradient 1.6 mmHg LVOT Velocity Time Integral 13.4 cm AV Area Cont Eq vti 0.4 cm AV Area Cont Eq pk 0.6 cm MV Area PHT 1.9 cm Mitral E Point Velocity 63.2 cm/s Mitral A Point Velocity 48.9 cm/s Mitral E to A Ratio 1.3 LV E' Lateral Velocity 6.8 cm/s Mitral E to LV E' Lateral Ratio 9.3 LV E' Septal Velocity 4.5 cm/s Mitral E to LV E' Septal Ratio 14.1 TR Peak Velocity 271.0 cm/s TR Peak Gradient 29.4 mmHg FINDINGS LEFT VENTRICLE The left ventricular systolic function is mktrexrp-hq-anqoopc reduced with an estimated ejection fra ction in the range of 35-40%. Normal left ventricular size. Moderate concentric left ventricular hypertrophy. Inferior wall hypokinesis. RIGHT VENTRICLE Normal right ventricular size and systolic function. LEFT ATRIUM The left atrial size is normal. RIGHT ATRIUM The right atrial size is normal. ATRIAL SEPTUM Normal atrial septal thickness without atrial level shunting by limited color doppler interrogation. AORTA The aortic root and proximal ascending aorta are normal in size on limited imaging. MITRAL VALVE Moderate mitral annular calcification. Mild mitral valve regurgitation. The mitral valve area by Pressure Halftime Method is 1.9 cm. AORTIC VALVE Diffuse calcification of the aortic valve. Trace aortic valve regurgitation. Aortic valve mean gradient is 36 mmHg. Aortic valve area is 0.44 cm. max 62 mmhg TRICUSPID VALVE Structurally normal tricuspid valve. There is mild tricuspid valve regurgitation. The estimated pulmonary arterial pressure is _39_ mmHg. PULMONARY VALVE The pulmonary valve is not well visualized. VESSELS The inferior vena cava is normal in size. PERICARDIUM No pericardial effusion. Napoleon Tidwell MD, FACC (Electronically Signed) Final Date:19 May 2017 16:56
[2017-05-19] MEDS: cefTRIAXone INJ 1,000 MG in SODIUM CHLORIDE 0.9% INJ 100 ML IV SCH (17:00)
--- NOTE | 2017-05-19 17:57 | MB ---
cc: MARYJO MADRID Corrected Copy: 05/21/17 DATE OF CONSULTATION: 05/19/2017 REASON FOR CONSULTATION: [id number]-[id number] [place]. HISTORY A 82-year-old gentleman who is a poor historian and the entire history is obtained from chart records. Apparently he presented with general malaise and weakness, abdominal pain and bowel incontinence for couple weeks he saw Dr. Aguirre his GI specialist an MRI done at [place] and was sent over. It looked like he may have had a gallstone an some fluid on the lung. 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 He states that he is from [place] but now currently lives locally. He is confused. He had some hallucinations. Troponin was elevated and now trending down. Denies any chest pain. We are consulted for further recommendations. PAST MEDICAL HISTORY Congestive heart failure Diabetes hypertension SOCIAL HISTORY Reports alcohol use and tobacco use according to record. Denies any substance use. ALLERGIES NO KNOWN DRUG ALLERGIES. MEDICATIONS Reported 1. Trazodone. 2. Aspirin 3. Januvia. 4. Omeprazole. 5. Metoprolol 6. Ambien. REVIEW OF SYSTEMS 12-point review of systems was preformed. Unless otherwise noted on the history of present illness. PHYSICAL EXAMINATION VITAL SIGNS: Temperature 97, pulse 98, blood pressure is 140/97, up to 206 with 1-2 mmHg. IN GENERAL: Alert, but not oriented no acute distress. HEAD, EYES, EARS, NOSE, AND THROAT: Exam shows pupils reactive to light, his extraocular muscles intact. NECK: No obvious venous distension or thyromegaly or lymphadenopathy. No carotid bruit. Upstrokes. LUNGS: Auscultation Clear bilaterally. CARDIOVASCULAR SYSTEM: Regular rate and rhythm without murmurs, rubs or gallops. ABDOMEN: The abdominal examination is nontender, nondistended, good bowel sounds. Nontender, nondistended. Good bowel sounds. No hepatosplenomegaly. EXTREMITIES: No clubbing, cyanosis or edema. Good peripheral pulse care nerves intact. Motor sensory grossly intact. LABORATORY DATA Sodium 137, potassium 3.5, BUN 16, creatinine 1.25. Troponin is high 0.90, down to 0.68. ELECTROCARDIOGRAM His electrocardiogram shows atrial fibrillation, incomplete right bundle-branch block some ST depression to the anterior precordial leads. ASSESSMENT 1. Iov-DT-gzayflpxq myocardial infarction. 2. History of congestive heart failure. 3. Confusion. PLAN: At this point we will obtain a 2-D echocardiogram, monitor troponin trend. We will see if we can gather some more history from family and then make a determination as to the decision for next management, probably needs a heart catheterization but lets determine what his baseline status is. His renal function is normal, I do not have a great explanation for his elevated troponin but I would like to get an idea of what his baseline mental status is before he proceeds. His B-type natriuretic peptide is also elevated but at this point it seems to be fairly well-compensated so we will hold off on aggressive diuresis. MD GEORGIE Paniagua/peter /11:31 AM /12:56 PM
[2017-05-19] MEDS: traZODone HCL 100 MG TAB PO SCH (22:14)
[2017-05-20] VITALS: BP 122/84; PULSE 84; RESP 26; TEMP 98; O2SAT 92
[2017-05-20 04:00] VITALS: BP 194/73; PULSE 66; RESP 21; TEMP 97.6; O2SAT 98
[2017-05-20] MEDS: CHLORHEXIDINE GLUCONATE 2 % 1 PACK (2 CLOTHS)(taper/protocol) TOPICAL SCH (04:00)
[2017-05-20 04:36] LABS: APTT (PATIENT) 101.8 SEC (24.3-30.1)
[2017-05-20 04:42] LABS: BICARBONATE 28.6 MEQ/L (21.0-32.0); POTASSIUM 3.1 MEQ/L (3.5-5.1)
[2017-05-20] MEDS: INSULIN ASPART SUPPLEMENTAL SCALE SQ SCH ×4 (05:13→21:00)
[2017-05-20] MEDS ORDERED: POTASSIUM CHLORIDE 20 MEQ CONTROLLED RELEASE TAB PO ONE (05:30)
[2017-05-20 08:00] VITALS: BP 162/77; PULSE 65; RESP 21; TEMP 97.6; O2SAT 98
--- NOTE | 2017-05-20 08:27 | HHI.FPPN ---
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 Objective Vitals Vital Signs Date Time Temp Pulse Resp B/P Pulse Ox O2 Delivery O2 Flow Rate FiO2 05/20/17 04:00 97.6 66 21 194/73 98 05/20/17 00:00 98.0 84 26 122/84 92 05/19/17 20:00 98.2 79 18 188/71 96 05/19/17 16:00 98.4 69 20 170/81 98 05/19/17 12:00 98.1 97 21 198/90 96 I/O 05/19/17 05/19/17 05/19/17 05/20/17 05/20/17 05/20/17 07:00 15:00 23:00 07:00 15:00 23:00 Intake Total 78 ml 237 ml 151 ml Output Total 700 ml 1000 ml 300 ml Balance -622 ml -763 ml -149 ml Intake Oral 0 ml 60 ml 100 ml IV Total 78 ml 177 ml 51 ml Output Urine Total 700 ml 1000 ml 300 ml # Bowel Movements 0 Result Diagram: 05/19/17 0829 05/20/17 0345 Objective Remarks GENERAL: SKIN: Warm and dry. HEAD: Atraumatic. Normocephalic. EYES: Pupils equal and round. No scleral icterus. No injection or drainage. ENT: No nasal bleeding or discharge. Mucous membranes pink and moist. NECK: Trachea midline. No JVD. CARDIOVASCULAR: Regular rate and rhythm. RESPIRATORY: bilat R/R. Breath sounds equal bilaterally. GASTROINTESTINAL: Abdomen soft, non-tender, nondistended. Hepatic and splenic margins not palpable. MUSCULOSKELETAL: Extremities without clubbing, cyanosis, or edema. No obvious deformities. NEUROLOGICAL: Awake and alert. No obvious cranial nerve deficits. Motor grossly within normal limits. 1 out of 5 muscle strength in the arms and legs. Normal speech. PSYCHIATRIC: flat Medications and IVs Current Medications Medications (Trade) Dose Ordered Sig/Kevon Route Start Time Stop Time Status Last Admin (NS Flush) 2 ml UNSCH PRN IV FLUSH 05/18/17 13:45 (NS Flush) 2 ml BID IV FLUSH 05/18/17 21:00 05/19/17 22:14 (Tylenol) 650 mg Q4H PRN PO 05/18/17 13:45 (Narcan Inj) 0.4 mg UNSCH PRN IV 05/18/17 13:45 (Shanell-Colace) 1 tab BID PO 05/18/17 21:00 05/19/17 22:14 (Milk Of Magnesia Liq) 30 ml Q12H PRN PO 05/18/17 13:45 (Senokot) 17.2 mg Q12H PRN PO 05/18/17 13:45 05/18/17 22:01 (Dulcolax Supp) 10 mg DAILY PRN RECTAL 05/18/17 13:45 (Lactulose Liq) 30 ml DAILY PRN PO 05/18/17 13:45 Furosemide 40 mg 40 mg BID@09,18 IV PUSH 05/18/17 18:00 05/19/17 17:00 Heparin Sodium/ Dextrose 250 ml @ 0 mls/hr TITRATE IV 05/18/17 17:15 05/18/17 17:46 (Rocephin Inj/NS Inj) 100 ml @ 200 mls/hr Q24H IV 05/18/17 18:00 05/19/17 17:00 (Aggrenox 200-25 Mg) 1 cap BID PO 05/18/17 21:00 05/19/17 22:13 (Toprol Xl) 25 mg BID PO 05/18/17 21:00 05/19/17 22:13 (Ultram) 50 mg Q6H PRN PO 05/18/17 17:30 (Ambien) 5 mg HS PRN PO 05/18/17 17:30 (Protonix) 20 mg DAILY PO 05/19/17 09:00 05/19/17 09:42 (Desyrel) 200 mg HS PO 05/18/17 21:00 05/19/17 22:14 (D50w (Vial) Inj) 50 ml UNSCH PRN IV 05/18/17 17:30 (Glucagon Inj) 1 mg UNSCH PRN OTHER 05/18/17 17:30 Miscellaneous Information Patient in critical care unit? Ass... Q361D .XX 05/19/17 04:45 05/19/17 04:45 (Chlorhexidine 2% Cloth) 3 pack DAILY@04 TOPICAL 05/20/17 04:00 05/24/17 04:01 05/20/17 04:00 (Chlorhexidine 2% Cloth) 3 pack UNSCH PRN TOPICAL 05/19/17 04:45 05/24/17 04:36 (Vasotec Inj) 1.25 mg Q8H PRN IV PUSH 05/19/17 12:30 Urinary Catheter: Yes Assessment to: Continue A/P Assessment and Plan Generalized weakness: secondary to underlying CAD/CHF or UTI. -Treatment for possible underlying cardiac disease or infection as below -PT eval after cardiology evaluation. NSTEMI: No specific complaints of chest pain but has had generalized weakness and shortness of breath. EKG reviewed with possible A. fib, no definite ischemic changes. -Aspirin 1 now, continue Aggrenox -continue heparin GGT -check echo and consult cardiology. Acute CHF exacerbation: Reported history of CHF by history, unknown type. Chest x-ray showing mild congestive failure. BNP 3839. -DECREASE IV Lasix -Check echocardiogram UTI: UA with possible UTI -Continue empiric IV Rocephin and follow-up urine culture. HYPOKALEMIA: REPLACE LYTES SAHNI DVT prophylaxis: SCD'S, on Heparin drip. Jamaal Oviedo MD May 20, 2017 08:27
[2017-05-20] MEDS: SODIUM CHLORIDE 0.9% FLUSH 10 ML FLUSH IV FLUSH SCH ×2 (09:00→22:29)
[2017-05-20] MEDS: DIPYRIDAMOLE/ASPIRIN 200 MG/25 MG CAP PO SCH ×2 (09:00→22:29)
[2017-05-20] MEDS: METOPROLOL SUCCINATE 25 MG EXTENDED RELEASE TAB PO SCH ×2 (09:00→22:29)
[2017-05-20] MEDS: PANTOPRAZOLE SOD 20 MG DELAYED RELEASE TAB PO SCH (09:00)
[2017-05-20] MEDS: DOCUSATE SODIUM 50 MG/SENNA 8.6 MG TAB PO SCH ×2 (09:00→22:29)
[2017-05-20] MEDS: FUROSEMIDE 40 MG/4 ML VIAL IV PUSH SCH (09:00)
--- NOTE | 2017-05-20 09:20 | PD.CARD.PN ---
Subjective Subjective Remarks sleeping on side answers questions but confused Objective Medications Active Medications Chlorhexidine Gluconate (Chlorhexidine 2% Cloth) 3 pack DAILY@04 TOPICAL Last administered on 05/20/17 04:00; Admin Dose 3 PACK; Start 05/20/17 at 04:00; Stop 05/24/17 at 04:01 Enalaprilat (Vasotec Inj) 1.25 mg Q8H PRN IV PUSH; Start 05/19/17 at 12:30 Furosemide (Lasix Inj) 40 mg DAILY IV PUSH; Start 05/21/17 at 09:00; Status UNV Potassium Chloride (KCl) 40 meq ONCE ONCE PO Last administered on 05/20/17 05: 34; Admin Dose 40 MEQ; Start 05/20/17 at 05:30; Stop 05/20/17 at 05:31; Status DC Vital Signs / I&O Vital Signs Date Time Temp Pulse Resp B/P Pulse Ox O2 Delivery O2 Flow Rate FiO2 05/20/17 04:00 97.6 66 21 194/73 98 05/20/17 00:00 98.0 84 26 122/84 92 05/19/17 20:00 98.2 79 18 188/71 96 05/19/17 16:00 98.4 69 20 170/81 98 05/19/17 12:00 98.1 97 21 198/90 96 I/O 05/19/17 05/19/17 05/19/17 05/20/17 05/20/17 05/20/17 06:59 14:59 22:59 06:59 14:59 22:59 Intake Total 78 ml 237 ml 151 ml Output Total 700 ml 1000 ml 300 ml Balance -622 ml -763 ml -149 ml Intake Oral 0 ml 60 ml 100 ml IV Total 78 ml 177 ml 51 ml Output Urine Total 700 ml 1000 ml 300 ml # Bowel Movements 0 Physical Exam NECK: Supple, trachea midline. No JVD or lymphadenopathy. CARDIOVASCULAR: Regular rate and rhythm 3/6 SM. RESPIRATORY: Breath sounds equal bilaterally. No accessory muscle use. GASTROINTESTINAL: Abdomen soft, non-tender, nondistended. MUSCULOSKELETAL: No cyanosis, or edema. BACK: Nontender without obvious deformity. No CVA tenderness. Laboratory Laboratory Tests Test 05/19/17 05/20/17 16:00 03:45 Activated Partial 47.7 SEC 101.8 SEC Thromboplast Time Sodium Level 138 MEQ/L Potassium Level 3.1 MEQ/L Chloride Level 100 MEQ/L Carbon Dioxide Level 28.6 MEQ/L Anion Gap 9 MEQ/L Blood Urea Nitrogen 22 MG/DL Creatinine 1.38 MG/DL Estimat Glomerular Filtration 49 ML/MIN Rate Random Glucose 117 MG/DL Calcium Level 8.4 MG/DL Imaging Last Impressions Head CT 05/18/17 1053 Signed Impressions: Service Date/Time: Thursday, May 18, 2017 12:25 - CONCLUSION: Aging brain with generalized volume loss. Calcific atherosclerotic vascular disease. No evidence of acute infarct, hemorrhage, mass or edema. Neville Obrien MD Chest X-Ray 05/18/17 1053 Signed Impressions: Service Date/Time: Thursday, May 18, 2017 10:57 - CONCLUSION: Cardiomegaly with mild congestive failure. Minimal bibasilar parenchymal changes. Stephen Eric MD FACR Assessment and Plan Assessment and Plan NSTEMI - asa. statin. needs ischemic evaluation. - severe. CHF - mild on CXR. minimal SOB cardiomyopathy - EF 35%. ischemic vs nonischemic baseline mental status? confused at times likely not a good candidate for AVR given his baseline mental status need to decide mgt strategy and if he is a candidate for invasive strategy. Ideally, he needs Left and right heart cath. May be TAVR candidate. we need to talk with family Minor,Napoleon Stacy MD May 20, 2017 09:20
[2017-05-20 11:12] LABS: APTT (PATIENT) 36.4 SEC (24.3-30.1)
[2017-05-20 12:00] VITALS: BP 144/69; PULSE 84; RESP 26; TEMP 98; O2SAT 92
[2017-05-20 16:00] VITALS: BP 162/77; PULSE 65; RESP 21; TEMP 97.6; O2SAT 98
[2017-05-20] MEDS: cefTRIAXone INJ 1,000 MG in SODIUM CHLORIDE 0.9% INJ 100 ML IV SCH (18:00)
[2017-05-20 20:10] LABS: APTT (PATIENT) 40.2 SEC (24.3-30.1)
[2017-05-20 22:00] VITALS: PULSE 111
[2017-05-20] MEDS: ZOLPIDEM TARTRATE 5 MG TAB PO PRN (22:28)
[2017-05-20] MEDS: traZODone HCL 100 MG TAB PO SCH (22:29)
[2017-05-21] VITALS (8 sets, daily range): BP systolic 120–174; BP diastolic 72–100; PULSE 75–105; RESP 18–22; TEMP 97.4–98.2; O2SAT 95–98
[2017-05-21 02:26] LABS: APTT (PATIENT) 42.3 SEC (24.3-30.1)
[2017-05-21 02:31] LABS: AUTOMATED NEUTROPHIL # 6.1 TH/MM3 (1.8-7.7); BASOPHIL # 0.1 TH/MM3 (0-0.2); BASOPHIL % 0.6 % (0.0-2.0); EOSINOPHIL # 0.3 TH/MM3 (0-0.4); EOSINOPHIL % 2.7 % (0.0-4.0); HEMATOCRIT 40.4 % (39.0-51.0); HEMO FLAGS DIFF FINAL; LYMPH % 20.5 % (9.0-44.0); MEAN CELL VOLUME 89.9 FL (80.0-100.0); MEAN CORPUSCULAR HGB CONC 34.4 % (32.0-36.0); MONO % 11.8 % (0.0-8.0); NEUT % 64.4 % (16.0-70.0); PLATELET COUNT 127 TH/MM3 (150-450); RED BLOOD COUNT 4.49 MIL/MM3 (4.50-5.90); RED CELL DISTRIBUTION WIDTH 14.4 % (11.6-17.2); WHITE BLOOD COUNT 9.5 TH/MM3 (4.0-11.0)
[2017-05-21 02:39] LABS: BICARBONATE 27.3 MEQ/L (21.0-32.0); MAGNESIUM 1.7 MG/DL (1.5-2.5); POTASSIUM 3.8 MEQ/L (3.5-5.1)
[2017-05-21] MEDS: HEPARIN-D5W INJ 250 ML IV SCH (03:37)
[2017-05-21] MEDS: CHLORHEXIDINE GLUCONATE 2 % 1 PACK (2 CLOTHS)(taper/protocol) TOPICAL SCH (03:38)
[2017-05-21] MEDS: INSULIN ASPART SUPPLEMENTAL SCALE SQ SCH ×4 (06:12→21:00)
[2017-05-21] MEDS ORDERED: FUROSEMIDE 40 MG/4 ML VIAL IV PUSH SCH (09:00)
[2017-05-21] MEDS: PANTOPRAZOLE SOD 20 MG DELAYED RELEASE TAB PO SCH (09:46)
[2017-05-21] MEDS: METOPROLOL SUCCINATE 25 MG EXTENDED RELEASE TAB PO SCH ×2 (09:46→21:47)
[2017-05-21] MEDS: SODIUM CHLORIDE 0.9% FLUSH 10 ML FLUSH IV FLUSH SCH ×2 (09:47→21:47)
[2017-05-21] MEDS: DOCUSATE SODIUM 50 MG/SENNA 8.6 MG TAB PO SCH ×2 (09:47→21:47)
[2017-05-21] MEDS: DIPYRIDAMOLE/ASPIRIN 200 MG/25 MG CAP PO SCH ×2 (10:19→21:47)
--- NOTE | 2017-05-21 13:59 | HHI.FPPN ---
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 Objective Vitals Vital Signs Date Time Temp Pulse Resp B/P Pulse Ox O2 Delivery O2 Flow Rate FiO2 05/21/17 12:00 98.0 89 18 158/83 96 05/21/17 11:00 83 05/21/17 08:00 97.9 79 20 156/100 95 05/21/17 07:00 97 05/21/17 04:00 98.0 88 21 174/94 97 05/21/17 00:00 98.2 105 22 120/72 96 05/20/17 22:00 111 05/20/17 16:00 97.6 65 21 162/77 98 I/O 05/20/17 05/20/17 05/20/17 05/21/17 05/21/17 05/21/17 07:00 15:00 23:00 07:00 15:00 23:00 Intake Total 151 ml 298 ml 180 ml 160 ml Output Total 300 ml 400 ml 250 ml 250 ml Balance -149 ml -102 ml -70 ml -90 ml Intake Oral 100 ml 240 ml 60 ml 100 ml IV Total 51 ml 58 ml 120 ml 60 ml Output Urine Total 300 ml 400 ml 250 ml 250 ml # Bowel Movements 0 Result Diagram: 05/21/17 01505/21/17 015 Objective Remarks GENERAL: SKIN: Warm and dry. HEAD: Atraumatic. Normocephalic. EYES: Pupils equal and round. No scleral icterus. No injection or drainage. ENT: No nasal bleeding or discharge. Mucous membranes pink and moist. NECK: Trachea midline. No JVD. CARDIOVASCULAR: Regular rate and rhythm. RESPIRATORY: bilat R/R. Breath sounds equal bilaterally. GASTROINTESTINAL: Abdomen soft, non-tender, nondistended. Hepatic and splenic margins not palpable. MUSCULOSKELETAL: Extremities without clubbing, cyanosis, or edema. No obvious deformities. NEUROLOGICAL: Awake and alert. No obvious cranial nerve deficits. Motor grossly within normal limits. 1 out of 5 muscle strength in the arms and legs. Normal speech. PSYCHIATRIC: flat Medications and IVs Current Medications Medications (Trade) Dose Ordered Sig/Kevon Route Start Time Stop Time Status Last Admin (NS Flush) 2 ml UNSCH PRN IV FLUSH 05/18/17 13:45 (NS Flush) 2 ml BID IV FLUSH 05/18/17 21:00 05/21/17 09:47 (Tylenol) 650 mg Q4H PRN PO 05/18/17 13:45 (Narcan Inj) 0.4 mg UNSCH PRN IV 05/18/17 13:45 (Shanell-Colace) 1 tab BID PO 05/18/17 21:00 05/21/17 09:47 (Milk Of Magnesia Liq) 30 ml Q12H PRN PO 05/18/17 13:45 (Senokot) 17.2 mg Q12H PRN PO 05/18/17 13:45 05/18/17 22:01 (Dulcolax Supp) 10 mg DAILY PRN RECTAL 05/18/17 13:45 Lactulose 30 ml 30 ml DAILY PRN PO 05/18/17 13:45 Heparin Sodium/ Dextrose 250 ml @ 0 mls/hr TITRATE IV 05/18/17 17:15 05/21/17 03:37 (Rocephin Inj/NS Inj) 100 ml @ 200 mls/hr Q24H IV 05/18/17 18:00 05/20/17 18:00 (Aggrenox 200-25 Mg) 1 cap BID PO 05/18/17 21:00 05/21/17 10:19 (Toprol Xl) 25 mg BID PO 05/18/17 21:00 05/21/17 09:46 (Ultram) 50 mg Q6H PRN PO 05/18/17 17:30 (Ambien) 5 mg HS PRN PO 05/18/17 17:30 05/20/17 22:28 (Protonix) 20 mg DAILY PO 05/19/17 09:00 05/21/17 09:46 (Desyrel) 200 mg HS PO 05/18/17 21:00 05/20/17 22:29 (D50w (Vial) Inj) 50 ml UNSCH PRN IV 05/18/17 17:30 (Glucagon Inj) 1 mg UNSCH PRN OTHER 05/18/17 17:30 Miscellaneous Information Patient in critical care unit? Ass... Q361D .XX 05/19/17 04:45 05/19/17 04:45 (Chlorhexidine 2% Cloth) 3 pack DAILY@04 TOPICAL 05/20/17 04:00 05/24/17 04:01 05/21/17 03:38 (Chlorhexidine 2% Cloth) 3 pack UNSCH PRN TOPICAL 05/19/17 04:45 05/24/17 04:36 (Vasotec Inj) 1.25 mg Q8H PRN IV PUSH 05/19/17 12:30 (Lasix Inj) 40 mg DAILY IV PUSH 05/21/17 09:00 05/21/17 09:47 A/P Assessment and Plan Generalized weakness: secondary to underlying CAD/CHF or UTI. -Treatment for possible underlying cardiac disease or infection as below -PT eval after cardiology evaluation. NSTEMI: No specific complaints of chest pain but has had generalized weakness and shortness of breath. EKG reviewed with possible A. fib, no definite ischemic changes. -continue Aggrenox -continue heparin GGT -check echo and consult cardiology. Acute CHF exacerbation: Reported history of CHF by history, unknown type. Chest x-ray showing mild congestive failure. BNP 3839. -DC IV Lasix D/T INCR RI -Check echocardiogram TRAV: DC LASIX, RECHECK LABS UTI: UA with possible UTI -Continue empiric IV Rocephin and follow-up urine culture. DELIRIUM, DEMENTIA: [facility]PROVING [facility] ACQUIRED DELIRIUM. PT W DEPRESSIVE MOOD AT BASELINE. HYPOKALEMIA: REPLACE LYTES SAHNI DVT prophylaxis: SCD'S, on Heparin drip. Jamaal Oviedo MD May 21, 2017 13:59
--- NOTE | 2017-05-21 15:21 | PD.CARD.PN ---
Subjective Subjective Remarks No CV complaints Objective Medications Current Medications Medications (Trade) Dose Ordered Sig/Kevon Route Start Time Stop Time Status Last Admin (NS Flush) 2 ml UNSCH PRN IV FLUSH 05/18/17 13:45 (NS Flush) 2 ml BID IV FLUSH 05/18/17 21:00 05/21/17 09:47 (Tylenol) 650 mg Q4H PRN PO 05/18/17 13:45 (Narcan Inj) 0.4 mg UNSCH PRN IV 05/18/17 13:45 (Shanell-Colace) 1 tab BID PO 05/18/17 21:00 05/21/17 09:47 (Milk Of Magnesia Liq) 30 ml Q12H PRN PO 05/18/17 13:45 (Senokot) 17.2 mg Q12H PRN PO 05/18/17 13:45 05/18/17 22:01 (Dulcolax Supp) 10 mg DAILY PRN RECTAL 05/18/17 13:45 Lactulose 30 ml 30 ml DAILY PRN PO 05/18/17 13:45 Heparin Sodium/ Dextrose 250 ml @ 0 mls/hr TITRATE IV 05/18/17 17:15 05/21/17 03:37 (Rocephin Inj/NS Inj) 100 ml @ 200 mls/hr Q24H IV 05/18/17 18:00 05/20/17 18:00 (Aggrenox 200-25 Mg) 1 cap BID PO 05/18/17 21:00 05/21/17 10:19 (Toprol Xl) 25 mg BID PO 05/18/17 21:00 05/21/17 09:46 (Ultram) 50 mg Q6H PRN PO 05/18/17 17:30 (Ambien) 5 mg HS PRN PO 05/18/17 17:30 05/20/17 22:28 (Protonix) 20 mg DAILY PO 05/19/17 09:00 05/21/17 09:46 (Desyrel) 200 mg HS PO 05/18/17 21:00 05/20/17 22:29 (D50w (Vial) Inj) 50 ml UNSCH PRN IV 05/18/17 17:30 (Glucagon Inj) 1 mg UNSCH PRN OTHER 05/18/17 17:30 Miscellaneous Information Patient in critical care unit? Ass... Q361D .XX 05/19/17 04:45 05/19/17 04:45 (Chlorhexidine 2% Cloth) 3 pack DAILY@04 TOPICAL 05/20/17 04:00 05/24/17 04:01 05/21/17 03:38 (Chlorhexidine 2% Cloth) 3 pack UNSCH PRN TOPICAL 05/19/17 04:45 05/24/17 04:36 (Vasotec Inj) 1.25 mg Q8H PRN IV PUSH 05/19/17 12:30 Vital Signs / I&O Vital Signs Date Time Temp Pulse Resp B/P Pulse Ox O2 Delivery O2 Flow Rate FiO2 05/21/17 12:00 98.0 89 18 158/83 96 05/21/17 11:00 83 05/21/17 08:00 97.9 79 20 156/100 95 05/21/17 07:00 97 05/21/17 04:00 98.0 88 21 174/94 97 05/21/17 00:00 98.2 105 22 120/72 96 05/20/17 22:00 111 05/20/17 16:00 97.6 65 21 162/77 98 I/O 05/20/17 05/20/17 05/20/17 05/21/17 05/21/17 05/21/17 06:59 14:59 22:59 06:59 14:59 22:59 Intake Total 151 ml 298 ml 180 ml 160 ml Output Total 300 ml 400 ml 250 ml 250 ml Balance -149 ml -102 ml -70 ml -90 ml Intake Oral 100 ml 240 ml 60 ml 100 ml IV Total 51 ml 58 ml 120 ml 60 ml Output Urine Total 300 ml 400 ml 250 ml 250 ml # Bowel Movements 0 Physical Exam GENERAL: Well-nourished, well-developed patient. SKIN: Warm and dry. HEAD: Normocephalic. EYES: No scleral icterus. No injection or drainage. NECK: Supple, trachea midline. No JVD or lymphadenopathy. CARDIOVASCULAR: Regular rate and rhythm 2/6 murmurs, gallops, or rubs. RESPIRATORY: Breath sounds equal bilaterally. No accessory muscle use. GASTROINTESTINAL: Abdomen soft, non-tender, nondistended. EXTREMITIES: No cyanosis, or edema. Laboratory Laboratory Tests Test 05/20/17 05/21/17 19:16 01:55 Activated Partial 40.2 SEC 42.3 SEC Thromboplast Time White Blood Count 9.5 TH/MM3 Red Blood Count 4.49 MIL/MM3 Hemoglobin 13.9 GM/DL Hematocrit 40.4 % Mean Corpuscular Volume 89.9 FL Mean Corpuscular Hemoglobin 31.0 PG Mean Corpuscular Hemoglobin 34.4 % Concent Red Cell Distribution Width 14.4 % Platelet Count 127 TH/MM3 Mean Platelet Volume 8.2 FL Neutrophils (%) (Auto) 64.4 % Lymphocytes (%) (Auto) 20.5 % Monocytes (%) (Auto) 11.8 % Eosinophils (%) (Auto) 2.7 % Basophils (%) (Auto) 0.6 % Neutrophils # (Auto) 6.1 TH/MM3 Lymphocytes # (Auto) 2.0 TH/MM3 Monocytes # (Auto) 1.1 TH/MM3 Eosinophils # (Auto) 0.3 TH/MM3 Basophils # (Auto) 0.1 TH/MM3 CBC Comment DIFF FINAL Differential Comment Hematology Comments Sodium Level 142 MEQ/L Potassium Level 3.8 MEQ/L Chloride Level 104 MEQ/L Carbon Dioxide Level 27.3 MEQ/L Anion Gap 11 MEQ/L Blood Urea Nitrogen 29 MG/DL Creatinine 1.55 MG/DL Estimat Glomerular Filtration 43 ML/MIN Rate Random Glucose 124 MG/DL Calcium Level 8.2 MG/DL Magnesium Level 1.7 MG/DL Imaging Last Impressions Head CT 05/18/17 1053 Signed Impressions: Service Date/Time: Thursday, May 18, 2017 12:25 - CONCLUSION: Aging brain with generalized volume loss. Calcific atherosclerotic vascular disease. No evidence of acute infarct, hemorrhage, mass or edema. Neville Obrien MD Chest X-Ray 05/18/17 1053 Signed Impressions: Service Date/Time: Thursday, May 18, 2017 10:57 - CONCLUSION: Cardiomegaly with mild congestive failure. Minimal bibasilar parenchymal changes. Stephen Eric MD FACR Assessment and Plan Problem List: (1) Acute exacerbation of CHF (congestive heart failure) Assessment and Plan: 82 y/o M admitted with acute mental changes found to have a UTI and also acute on chronic systolic CHF in the setting of severe , NYHA III sx. He remains afebrile and hemodynamically stable, today he appears less confused and agreeable to undergo work up for valve replacement. Ideally if he is successfully treated for the UTI we should be able to address the . For this he will need: Dobutamine stress echocardiogram, CT surgery consult, TAVR CTA, LHC and Frailty. Given TRAV we would need to wait on doing LHC and CTA at this time. Recommendations: 1. Gentle hydration 2. Schedule dobutamine stress test 3. Plan for LHC on Thursday. 4. D/C heparin drip (2) Elevated troponin (3) Cellulitis of right anterior lower leg (4) UTI (urinary tract infection) Problem Qualifiers (1) Acute exacerbation of CHF (congestive heart failure): Qualified Code: I50.9 - Acute on chronic congestive heart failure, unspecified congestive heart failure type (2) UTI (urinary tract infection): Qualified Code: N30.00 - Acute cystitis without hematuria Kevin Chiu MD May 21, 2017 15:21
[2017-05-21] MEDS ORDERED: METOPROLOL TARTRATE 5 MG/5 ML VIAL ONE (16:12)
[2017-05-21] MEDS ORDERED: DOBUTamine PREMIX DRIP 250 ML ONE (16:12)
[2017-05-21] MEDS: cefTRIAXone INJ 1,000 MG in SODIUM CHLORIDE 0.9% INJ 100 ML IV SCH (16:37)
--- NOTE | 2017-05-21 19:20 | ECHRPT ---
Indication: DOBUTAMINE SE FOR CONCLUSIONS LV systolic dysfunction EF 35-40% Low Flow Low Gradient Severe Aortic Stenosis The gradients are as follows with Dobutamine given at different intervals; Pre Dobutamine: Mean 30 mmHg 5mcgs: 30 mmHg 10 mcgs:38 mmHg 15 mcgs: 48 mmHg Post Dobutamine:34 mmHg STRESS TEST Protocol: Duration (m:s): Resting HR (bpm): Resting BP (mmHg): / MPHR: 136 Target HR: 116 Peak HR (bpm): Peak BP (mmHg): / % MPHR: Double Product: Target HR Summary: BP Response: Termination Reason: Cardiac Symptoms: REST ECHO FINDINGS MEASUREMENTS (Male/Female) Normal Values DOPPLER AV Peak Velocity 380.5 cm/s AV Mean Gradient 32.0 mmHg AV Peak Gradient 57.9 mmHg AV Velocity Time Integral 74.6 cm Kevin Chiu MD (Electronically Signed) Final Date:21 May 2017 19:19
[2017-05-21] MEDS: traZODone HCL 100 MG TAB PO SCH (21:47)
[2017-05-22] VITALS (7 sets, daily range): BP systolic 116–179; BP diastolic 62–82; PULSE 69–82; RESP 16–20; TEMP 97.2–98.7; O2SAT 96–100
[2017-05-22] MEDS: INSULIN ASPART SUPPLEMENTAL SCALE SQ SCH ×5 (05:39→21:27)
--- NOTE | 2017-05-22 06:59 | PD.CARD.PN ---
Subjective Subjective Remarks no complaints no overnight events Objective Medications Current Medications Medications (Trade) Dose Ordered Sig/Kevon Route Start Time Stop Time Status Last Admin (NS Flush) 2 ml UNSCH PRN IV FLUSH 05/18/17 13:45 (NS Flush) 2 ml BID IV FLUSH 05/18/17 21:00 05/21/17 21:47 (Tylenol) 650 mg Q4H PRN PO 05/18/17 13:45 (Narcan Inj) 0.4 mg UNSCH PRN IV 05/18/17 13:45 (Shanell-Colace) 1 tab BID PO 05/18/17 21:00 05/21/17 21:47 (Milk Of Magnesia Liq) 30 ml Q12H PRN PO 05/18/17 13:45 (Senokot) 17.2 mg Q12H PRN PO 05/18/17 13:45 05/18/17 22:01 (Dulcolax Supp) 10 mg DAILY PRN RECTAL 05/18/17 13:45 Lactulose 30 ml 30 ml DAILY PRN PO 05/18/17 13:45 Heparin Sodium/ Dextrose 250 ml @ 0 mls/hr TITRATE IV 05/18/17 17:15 05/21/17 03:37 (Rocephin Inj/NS Inj) 100 ml @ 200 mls/hr Q24H IV 05/18/17 18:00 05/21/17 16:37 (Aggrenox 200-25 Mg) 1 cap BID PO 05/18/17 21:00 05/21/17 21:47 (Toprol Xl) 25 mg BID PO 05/18/17 21:00 05/21/17 21:47 (Ultram) 50 mg Q6H PRN PO 05/18/17 17:30 (Ambien) 5 mg HS PRN PO 05/18/17 17:30 05/20/17 22:28 (Protonix) 20 mg DAILY PO 05/19/17 09:00 05/21/17 09:46 (Desyrel) 200 mg HS PO 05/18/17 21:00 05/21/17 21:47 (D50w (Vial) Inj) 50 ml UNSCH PRN IV 05/18/17 17:30 (Glucagon Inj) 1 mg UNSCH PRN OTHER 05/18/17 17:30 Miscellaneous Information Patient in critical care unit? Ass... Q361D .XX 05/19/17 04:45 05/19/17 04:45 (Chlorhexidine 2% Cloth) 3 pack DAILY@04 TOPICAL 05/20/17 04:00 05/24/17 04:01 05/21/17 03:38 (Chlorhexidine 2% Cloth) 3 pack UNSCH PRN TOPICAL 05/19/17 04:45 05/24/17 04:36 (Vasotec Inj) 1.25 mg Q8H PRN IV PUSH 05/19/17 12:30 Vital Signs / I&O Vital Signs Date Time Temp Pulse Resp B/P Pulse Ox O2 Delivery O2 Flow Rate FiO2 05/22/17 04:00 97.5 79 20 140/62 97 05/22/17 00:00 98.1 80 20 177/81 97 05/22/17 00:00 Room Air 05/21/17 20:00 Room Air 05/21/17 20:00 97.4 85 20 157/94 96 05/21/17 20:00 88 05/21/17 16:05 97.8 75 18 162/82 98 05/21/17 12:00 98.0 89 18 158/83 96 05/21/17 11:00 83 05/21/17 08:00 97.9 79 20 156/100 95 05/21/17 07:00 97 I/O 05/21/17 05/21/17 05/21/17 05/22/17 05/22/17 05/22/17 07:00 15:00 23:00 07:00 15:00 23:00 Intake Total 160 ml 244 ml 46 ml Output Total 250 ml 950 ml 75 ml Balance -90 ml -706 ml -29 ml Intake Oral 100 ml 120 ml 0 ml IV Total 60 ml 124 ml 46 ml Output Urine Total 250 ml 950 ml 75 ml Physical Exam GENERAL: Well-nourished, well-developed patient. SKIN: Warm and dry. HEAD: Normocephalic. EYES: No scleral icterus. No injection or drainage. NECK: Supple, trachea midline. No JVD or lymphadenopathy. CARDIOVASCULAR: Regular rate and rhythm 2/6 murmurs, gallops, or rubs. RESPIRATORY: Breath sounds equal bilaterally. No accessory muscle use. GASTROINTESTINAL: Abdomen soft, non-tender, nondistended. EXTREMITIES: No cyanosis, or edema. Imaging Last Impressions Head CT 05/18/17 1053 Signed Impressions: Service Date/Time: Thursday, May 18, 2017 12:25 - CONCLUSION: Aging brain with generalized volume loss. Calcific atherosclerotic vascular disease. No evidence of acute infarct, hemorrhage, mass or edema. Neville Obrien MD Chest X-Ray 05/18/17 1053 Signed Impressions: Service Date/Time: Thursday, May 18, 2017 10:57 - CONCLUSION: Cardiomegaly with mild congestive failure. Minimal bibasilar parenchymal changes. Stephen Eric MD FACR Assessment and Plan Problem List: (1) Acute exacerbation of CHF (congestive heart failure) Assessment and Plan: 82 y/o M admitted with acute mental changes found to have a UTI and also acute on chronic systolic CHF in the setting of severe , NYHA III sx. He remains afebrile and hemodynamically stable. Dobutamine stress echocardiogram performed yesterday confirmed severity of (Low Flow Low Gradient). AM BMP pending. Being workup for AVR vs TAVR. Recommendations: 1. Gentle hydration 2. Plan for LHC on Thursday. Pending resolution of TRAV 4. D/C heparin drip 5. CT surgery consult 6. Frailty by Structural Heart Nurse Coordinator 7. PFT's (2) Elevated troponin (3) Cellulitis of right anterior lower leg (4) UTI (urinary tract infection) Problem Qualifiers (1) Acute exacerbation of CHF (congestive heart failure): Qualified Code: I50.9 - Acute on chronic congestive heart failure, unspecified congestive heart failure type (2) UTI (urinary tract infection): Qualified Code: N30.00 - Acute cystitis without hematuria Kevin Chiu MD May 22, 2017 06:59 Qualified Code: N30.00 - Acute cystitis without hematuria Kevin Chiu MD May 22, 2017 06:59
--- NOTE | 2017-05-22 07:33 | HHI.FPPN ---
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 REVIEWED LABS REVIEWED Objective Vitals Vital Signs Date Time Temp Pulse Resp B/P Pulse Ox O2 Delivery O2 Flow Rate FiO2 05/22/17 04:00 97.5 79 20 140/62 97 05/22/17 00:00 98.1 80 20 177/81 97 05/22/17 00:00 Room Air 05/21/17 20:00 Room Air 05/21/17 20:00 97.4 85 20 157/94 96 05/21/17 20:00 88 05/21/17 16:05 97.8 75 18 162/82 98 05/21/17 12:00 98.0 89 18 158/83 96 05/21/17 11:00 83 05/21/17 08:00 97.9 79 20 156/100 95 I/O 05/21/17 05/21/17 05/21/17 05/22/17 05/22/17 05/22/17 06:59 14:59 22:59 06:59 14:59 22:59 Intake Total 160 ml 244 ml 46 ml Output Total 250 ml 950 ml 75 ml Balance -90 ml -706 ml -29 ml Intake Oral 100 ml 120 ml 0 ml IV Total 60 ml 124 ml 46 ml Output Urine Total 250 ml 950 ml 75 ml Result Diagram: 05/21/1715405/21/17154 Objective Remarks GENERAL: SKIN: Warm and dry. HEAD: Atraumatic. Normocephalic. EYES: Pupils equal and round. No scleral icterus. No injection or drainage. ENT: No nasal bleeding or discharge. Mucous membranes pink and moist. NECK: Trachea midline. No JVD. CARDIOVASCULAR: Regular rate and rhythm. RESPIRATORY: bilat R/R. Breath sounds equal bilaterally. GASTROINTESTINAL: Abdomen soft, non-tender, nondistended. Hepatic and splenic margins not palpable. MUSCULOSKELETAL: Extremities without clubbing, cyanosis, or edema. No obvious deformities. NEUROLOGICAL: Awake and alert. No obvious cranial nerve deficits. Motor grossly within normal limits. 1 out of 5 muscle strength in the arms and legs. Normal speech. PSYCHIATRIC: flat A/P Assessment and Plan Generalized weakness: secondary to underlying CAD/CHF or UTI. -Treatment for possible underlying cardiac disease or infection as below -PT eval after cardiology evaluation. NSTEMI: No specific complaints of chest pain but has had generalized weakness and shortness of breath. EKG reviewed with possible A. fib, no definite ischemic changes. -continue Aggrenox -continue heparin GGT -[facility] THUR[facility]AY. check echo and consult cardiology. Acute CHF exacerbation: Reported history of CHF by history, unknown type. Chest x-ray showing mild congestive failure. BNP 3839. -DC IV Lasix D/T INCR RI -LOW IVF'S TRAV: DC LASIX, RECHECK LABS UTI: UA with possible UTI -DC Rocephin and follow-up urine culture. DELIRIUM, DEMENTIA: [facility] ACQUIRED DELIRIUM. PT W DEPRESSIVE MOOD AT BASELINE. HYPOKALEMIA: REPLACE LYTES SAHNI DVT prophylaxis: SCD'S, on Heparin drip. Jamaal Oviedo MD May 22, 2017 07:33
[2017-05-22] MEDS: DIPYRIDAMOLE/ASPIRIN 200 MG/25 MG CAP PO SCH ×2 (08:44→21:26)
[2017-05-22] MEDS: METOPROLOL SUCCINATE 25 MG EXTENDED RELEASE TAB PO SCH ×2 (08:44→21:26)
[2017-05-22] MEDS: PANTOPRAZOLE SOD 20 MG DELAYED RELEASE TAB PO SCH (08:44)
[2017-05-22] MEDS: SODIUM CHLORIDE 0.9% FLUSH 10 ML FLUSH IV FLUSH SCH ×2 (08:44→21:27)
[2017-05-22] MEDS: DOCUSATE SODIUM 50 MG/SENNA 8.6 MG TAB PO SCH ×2 (08:44→21:26)
[2017-05-22 10:00] LABS: APTT (PATIENT) 30.7 SEC (24.3-30.1)
[2017-05-22 10:14] LABS: BICARBONATE 28.2 MEQ/L (21.0-32.0); POTASSIUM 3.7 MEQ/L (3.5-5.1)
[2017-05-22] MEDS ORDERED: SODIUM CHLOR 0.9% 1000 ML INJ 1,000 ML IV SCH (14:00)
--- NOTE | 2017-05-22 16:56 | EKG ---
Date Performed: 05/21/2017 Time Performed: 16:45:20 PTAGE: 82 years EKG: Sinus arrhythmia. Possible left anterior fascicular block Left ventricular hypertrophy Exte nsive ST-T changes are probably due to ventricular hypertrophy Compared to previous tracing, there's a rhythm change from atrial fibrillation to Sinus rhythm with borderline first degree AV block. Abnormal ECG PREVIOUS TRACING : 05/18/2017 22.48 DOCTOR: Jamaal Ho Interpretating Date/Time 05/22/2017 16:54:19
--- NOTE | 2017-05-22 17:00 | EKG ---
Date Performed: 05/21/2017 Time Performed: 18:01:56 PTAGE: 82 years EKG: Sinus arrhythmia with borderline 1st degree A-V block. Left anterior fascicular block LVH w ith secondary repolarization abnormality Ant/septal and lateral ST-T changes are probably due to vent ricular hypertrophy Compared to prior tracing no significant change Abnormal ECG PREVIOUS TRACING : 05/21/2017 16.45 DOCTOR: Jamaal Ho Interpretating Date/Time 05/22/2017 16:59:35
[2017-05-22] MEDS: cefTRIAXone INJ 1,000 MG in SODIUM CHLORIDE 0.9% INJ 100 ML IV SCH (17:50)
[2017-05-22] MEDS: traZODone HCL 100 MG TAB PO SCH (21:26)
[2017-05-23] MEDS: CHLORHEXIDINE GLUCONATE 2 % 1 PACK (2 CLOTHS)(taper/protocol) TOPICAL SCH (04:00)
[2017-05-23 04:27] VITALS: BP 183/88; PULSE 79; RESP 16; TEMP 97.4; O2SAT 97
[2017-05-23] MEDS: ENALAPRILAT 1.25 MG/ML VIAL IV PUSH PRN (05:04)
[2017-05-23 07:23] LABS: BICARBONATE 23.7 MEQ/L (21.0-32.0); POTASSIUM 3.7 MEQ/L (3.5-5.1)
[2017-05-23 08:00] VITALS: BP 172/92; PULSE 79; RESP 18; TEMP 97.7; O2SAT 97
[2017-05-23 08:10] VITALS: PULSE 66
[2017-05-23] MEDS: DIPYRIDAMOLE/ASPIRIN 200 MG/25 MG CAP PO SCH ×2 (09:33→22:13)
[2017-05-23] MEDS: PANTOPRAZOLE SOD 20 MG DELAYED RELEASE TAB PO SCH (09:33)
[2017-05-23] MEDS: METOPROLOL SUCCINATE 25 MG EXTENDED RELEASE TAB PO SCH ×2 (09:33→22:14)
[2017-05-23] MEDS: DOCUSATE SODIUM 50 MG/SENNA 8.6 MG TAB PO SCH ×2 (09:33→22:14)
[2017-05-23] MEDS: SODIUM CHLORIDE 0.9% FLUSH 10 ML FLUSH IV FLUSH SCH ×2 (09:34→22:14)
[2017-05-23] MEDS: INSULIN ASPART SUPPLEMENTAL SCALE SQ SCH ×3 (11:00→21:00)
[2017-05-23 12:00] VITALS: BP 155/72; PULSE 69; RESP 18; TEMP 98; O2SAT 97
--- NOTE | 2017-05-23 12:06 | HHI.PR ---
Subjective Remarks generalized weakness, complains of bruising of his arms no chest pains or shortness of breath no diarrhea Objective Vitals Vital Signs Date Time Temp Pulse Resp B/P Pulse Ox O2 Delivery O2 Flow Rate FiO2 05/23/17 08:00 97.7 79 18 172/92 97 05/23/17 04:27 97.4 79 16 183/88 97 05/22/17 23:56 97.2 74 16 145/65 96 05/22/17 21:17 Room Air 05/22/17 20:00 82 05/22/17 20:00 98.7 80 16 133/82 97 05/22/17 16:06 98.1 78 20 160/74 100 I/O 05/22/17 05/22/17 05/22/17 05/23/17 05/23/17 05/23/17 06:59 14:59 22:59 06:59 14:59 22:59 Intake Total 46 ml 480 ml 0 ml Output Total 75 ml 175 ml 200 ml 200 ml Balance -29 ml -175 ml 280 ml -200 ml Intake Oral 0 ml 480 ml 0 ml IV Total 46 ml Output Urine Total 75 ml 175 ml 200 ml 200 ml # Bowel Movements 1 0 Result Diagram: 05/21/17 0155 05/23/17 0626 Imaging Last Impressions Head CT 05/18/17 1053 Signed Impressions: Service Date/Time: Thursday, May 18, 2017 12:25 - CONCLUSION: Aging brain with generalized volume loss. Calcific atherosclerotic vascular disease. No evidence of acute infarct, hemorrhage, mass or edema. Neville Obrien MD Chest X-Ray 05/18/17 1053 Signed Impressions: Service Date/Time: Thursday, May 18, 2017 10:57 - CONCLUSION: Cardiomegaly with mild congestive failure. Minimal bibasilar parenchymal changes. Stephen Eric MD FACR Objective Remarks awake and alert, NAD anicteric lungs no rales regular rhythm, 3/6 systolic murmur left sternal border abdomen soft, nontender extremities no edema skin- ecchymoses A/P Assessment and Plan 82 years old male Generalized weakness: secondary to underlying CAD/CHF or UTI. -Treatment for possible underlying cardiac disease or infection as below -PT eval after cardiology evaluation. NSTEMI: No specific complaints of chest pain but has had generalized weakness and shortness of breath. EKG reviewed with possible A. fib, no definite ischemic changes. -continue Aggrenox -continue heparin GGT -[facility] Thursday -LDL 115- start Statins Acute CHF exacerbation: Reported history of CHF by history, unknown type. Chest x-ray showing mild congestive failure. BNP 3839. - Echo 45% TRAV: DC LASIX, ff BMP- pending UTI: UA with possible UTI -DC Rocephin and follow-up urine culture. DELIRIUM, DEMENTIA: [facility] ACQUIRED DELIRIUM. PT W DEPRESSIVE MOOD AT BASELINE. - patient a x ox 3, HYPOKALEMIA: ff BMP. corrected DVT prophylaxis: SCD'S, on Heparin drip. Madonna Mendez MD May 23, 2017 12:06
[2017-05-23 16:00] VITALS: BP 151/71; PULSE 72; RESP 18; TEMP 98; O2SAT 98
[2017-05-23 20:00] VITALS: BP 160/91; PULSE 80; PULSE 82; RESP 18; TEMP 98; O2SAT 96
[2017-05-23] MEDS: traZODone HCL 100 MG TAB PO SCH (22:13)
[2017-05-23] MEDS: ATORVASTATIN 10 MG TAB PO SCH (22:14)
[2017-05-24] VITALS (9 sets, daily range): BP systolic 140–194; BP diastolic 65–96; PULSE 65–87; RESP 18–20; TEMP 97.3–97.9; O2SAT 93–98
[2017-05-24] MEDS: traMADol HCL 50 MG TAB PO PRN ×2 (01:47→21:13)
[2017-05-24] MEDS: ZOLPIDEM TARTRATE 5 MG TAB PO PRN (01:47)
[2017-05-24] MEDS: CHLORHEXIDINE GLUCONATE 2 % 1 PACK (2 CLOTHS)(taper/protocol) TOPICAL SCH (03:22)
[2017-05-24] MEDS: INSULIN ASPART SUPPLEMENTAL SCALE SQ SCH ×4 (06:53→21:00)
[2017-05-24] MEDS: DIPYRIDAMOLE/ASPIRIN 200 MG/25 MG CAP PO SCH ×2 (09:40→21:00)
[2017-05-24] MEDS: METOPROLOL SUCCINATE 25 MG EXTENDED RELEASE TAB PO SCH ×2 (09:40→21:14)
[2017-05-24] MEDS: SODIUM CHLORIDE 0.9% FLUSH 10 ML FLUSH IV FLUSH SCH ×2 (09:40→21:13)
[2017-05-24] MEDS: DOCUSATE SODIUM 50 MG/SENNA 8.6 MG TAB PO SCH ×2 (09:40→21:14)
[2017-05-24] MEDS: PANTOPRAZOLE SOD 20 MG DELAYED RELEASE TAB PO SCH (09:40)
[2017-05-24 09:55] LABS: HEMATOCRIT 39.3 % (39.0-51.0); MEAN CELL VOLUME 90.9 FL (80.0-100.0); MEAN CORPUSCULAR HEMOGLOBIN 29.7 PG (27.0-34.0); MEAN CORPUSCULAR HGB CONC 32.7 % (32.0-36.0); PLATELET COUNT 123 TH/MM3 (150-450); RED BLOOD COUNT 4.32 MIL/MM3 (4.50-5.90); RED CELL DISTRIBUTION WIDTH 13.8 % (11.6-17.2); REVIEW FLAG FINAL; WHITE BLOOD COUNT 8.5 TH/MM3 (4.0-11.0)
[2017-05-24 10:00] LABS: APTT (PATIENT) 32.2 SEC (24.3-30.1)
--- NOTE | 2017-05-24 11:26 | HHI.PR ---
Subjective Remarks no complains of chest pain or shortness of breath d/w staff- poor po hernandez in place- urine looks concentrated Objective Vitals Vital Signs Date Time Temp Pulse Resp B/P Pulse Ox O2 Delivery O2 Flow Rate FiO2 05/24/17 08:00 97.6 74 20 182/92 97 05/24/17 04:00 97.8 87 18 173/89 93 05/24/17 04:00 Room Air 05/24/17 00:00 97.9 82 18 170/82 96 05/24/17 00:00 Room Air 05/23/17 20:00 Room Air 05/23/17 20:00 82 05/23/17 20:00 98.0 80 18 160/91 96 05/23/17 16:00 98.0 72 18 151/71 98 05/23/17 12:00 98.0 69 18 155/72 97 I/O 05/23/17 05/23/17 05/23/17 05/24/17 05/24/17 05/24/17 07:00 15:00 23:00 07:00 15:00 23:00 Intake Total 0 ml 360 ml 240 ml 0 ml Output Total 200 ml 200 ml 250 ml 250 ml Balance -200 ml 160 ml -10 ml -250 ml Intake Oral 0 ml 360 ml 240 ml 0 ml Output Urine Total 200 ml 200 ml 250 ml 250 ml # Bowel Movements 0 1 1 Result Diagram: 05/24/17 0820 05/23/17 0626 Imaging Last Impressions Head CT 05/18/17 1053 Signed Impressions: Service Date/Time: Thursday, May 18, 2017 12:25 - CONCLUSION: Aging brain with generalized volume loss. Calcific atherosclerotic vascular disease. No evidence of acute infarct, hemorrhage, mass or edema. Neville Obrien MD Chest X-Ray 05/18/17 1053 Signed Impressions: Service Date/Time: Thursday, May 18, 2017 10:57 - CONCLUSION: Cardiomegaly with mild congestive failure. Minimal bibasilar parenchymal changes. Stephen Eric MD FACR Objective Remarks awake and alert, NAD, oriented to person, baseline dementia- "here", ff all commands, blunt affect anicteric lungs no rales regular rhythm, 3/6 systolic murmur left sternal border abdomen soft, nontender extremities no edema skin- ecchymoses A/P Assessment and Plan 82 years old male Generalized weakness: secondary to underlying CAD/CHF or UTI. -PT eval after cardiology evaluation. NSTEMI: No specific complaints of chest pain but has had generalized weakness and shortness of breath. EKG reviewed with possible A. fib, no definite ischemic changes. -continue Aggrenox -continue heparin GGT -C Thursday -LDL 115- start Statins Acute CHF exacerbation: Reported history of CHF by history, unknown type. Chest x-ray showing mild congestive failure. BNP 3839. - Echo 45% TRAV: resolved. recheck BMP today- urine looks concentrated, poor po restart IVF gentle rate 40 cc/hr - ff BMP- for cath in am Pyuria- culture- no growth S/P Rocephin DELIRIUM, DEMENTIA: [facility] ACQUIRED DELIRIUM. PT W DEPRESSIVE MOOD AT BASELINE. - patient a x ox 3, HYPOKALEMIA: ff BMP. corrected DVT prophylaxis: SCD'S, on Heparin drip. Madonna Mendez MD May 24, 2017 11:26
[2017-05-24 14:44] LABS: BICARBONATE 30.8 MEQ/L (21.0-32.0); POTASSIUM 3.6 MEQ/L (3.5-5.1)
[2017-05-24] MEDS ORDERED: SODIUM CHLOR 0.9% 1000 ML INJ 1,000 ML IV SCH (16:15)
[2017-05-24] MEDS: ATORVASTATIN 10 MG TAB PO SCH (21:14)
[2017-05-24] MEDS: traZODone HCL 100 MG TAB PO SCH (21:14)
[2017-05-25] VITALS (10 sets, daily range): BP systolic 120–187; BP diastolic 62–97; PULSE 69–90; RESP 20–22; TEMP 97.4–97.7; O2SAT 97–98
[2017-05-25] MEDS: ENALAPRILAT 1.25 MG/ML VIAL IV PUSH PRN (04:21)
[2017-05-25] MEDS: INSULIN ASPART SUPPLEMENTAL SCALE SQ SCH ×4 (06:28→20:57)
--- NOTE | 2017-05-25 08:07 | HHI.FPPN ---
Subjective Remarks PT AT BASELINE D/W DR MADRID TELE REVIEWED EVENTS NOTED Objective Vitals Vital Signs Date Time Temp Pulse Resp B/P Pulse Ox O2 Delivery O2 Flow Rate FiO2 05/25/17 04:50 146/78 05/25/17 04:00 Room Air 05/25/17 04:00 97.4 75 20 187/97 98 05/25/17 00:00 97.7 70 20 138/62 98 05/25/17 00:00 Room Air 05/24/17 20:32 70 05/24/17 20:00 Room Air 05/24/17 20:00 97.8 67 20 140/65 98 05/24/17 18:48 148/68 05/24/17 16:00 97.3 77 20 194/91 97 05/24/17 12:00 97.8 76 20 183/96 98 05/24/17 09:00 Room Air 05/24/17 08:16 65 I/O 05/24/17 05/24/17 05/24/17 05/25/17 05/25/17 05/25/17 06:59 14:59 22:59 06:59 14:59 22:59 Intake Total 0 ml 240 ml 480 ml 387 ml Output Total 250 ml 250 ml 400 ml Balance -250 ml -10 ml 480 ml -13 ml Intake Oral 0 ml 240 ml 480 ml 0 ml IV Total 387 ml Output Urine Total 250 ml 250 ml 400 ml # Voids 1 2 # Bowel Movements 1 1 1 2 Result Diagram: 05/24/17 0820 05/24/17 1330 Objective Remarks GENERAL: SKIN: Warm and dry. HEAD: Atraumatic. Normocephalic. EYES: Pupils equal and round. No scleral icterus. No injection or drainage. ENT: No nasal bleeding or discharge. Mucous membranes pink and moist. NECK: Trachea midline. No JVD. CARDIOVASCULAR: Regular rate and rhythm. RESPIRATORY: bilat R/R. Breath sounds equal bilaterally. GASTROINTESTINAL: Abdomen soft, non-tender, nondistended. Hepatic and splenic margins not palpable. MUSCULOSKELETAL: Extremities without clubbing, cyanosis, or edema. No obvious deformities. NEUROLOGICAL: Awake and alert. No obvious cranial nerve deficits. Motor grossly within normal limits. 1 out of 5 muscle strength in the arms and legs. Normal speech. PSYCHIATRIC: flat Medications and IVs Current Medications Medications (Trade) Dose Ordered Sig/Kevon Route Start Time Stop Time Status Last Admin (NS Flush) 2 ml UNSCH PRN IV FLUSH 05/18/17 13:45 (NS Flush) 2 ml BID IV FLUSH 05/18/17 21:00 05/24/17 21:13 (Tylenol) 650 mg Q4H PRN PO 05/18/17 13:45 (Narcan Inj) 0.4 mg UNSCH PRN IV 05/18/17 13:45 (Shanell-Colace) 1 tab BID PO 05/18/17 21:00 05/24/17 21:14 (Milk Of Magnesia Liq) 30 ml Q12H PRN PO 05/18/17 13:45 (Senokot) 17.2 mg Q12H PRN PO 05/18/17 13:45 05/18/17 22:01 (Dulcolax Supp) 10 mg DAILY PRN RECTAL 05/18/17 13:45 (Lactulose Liq) 30 ml DAILY PRN PO 05/18/17 13:45 (Aggrenox 200-25 Mg) 1 cap BID PO 05/18/17 21:00 05/24/17 21:00 (Toprol Xl) 25 mg BID PO 05/18/17 21:00 05/24/17 21:14 (Ultram) 50 mg Q6H PRN PO 05/18/17 17:30 05/24/17 21:13 (Ambien) 5 mg HS PRN PO 05/18/17 17:30 05/24/17 01:47 (Protonix) 20 mg DAILY PO 05/19/17 09:00 05/24/17 09:40 (Desyrel) 200 mg HS PO 05/18/17 21:00 05/24/17 21:14 (D50w (Vial) Inj) 50 ml UNSCH PRN IV 05/18/17 17:30 (Glucagon Inj) 1 mg UNSCH PRN OTHER 05/18/17 17:30 Miscellaneous Information Patient in critical care unit? Ass... Q361D .XX 05/19/17 04:45 05/19/17 04:45 (Vasotec Inj) 1.25 mg Q8H PRN IV PUSH 05/19/17 12:30 05/25/17 04:21 Atorvastatin Calcium 10 mg 10 mg HS PO 05/23/17 21:00 05/24/17 21:14 (NS 1000 ml Inj) 1,000 ml @ 42 mls/hr [id number] IV 05/24/17 16:15 05/24/17 21:13 A/P Assessment and Plan Generalized weakness: secondary to underlying CAD/CHF or UTI. -PT eval after cardiology evaluation. NSTEMI: No specific complaints of chest pain but has had generalized weakness and shortness of breath. EKG reviewed with possible A. fib, no definite ischemic changes. -continue Aggrenox -OFF heparin GGT -[facility] -LDL 115- Statin Acute CHF exacerbation: Reported history of CHF by history, unknown type. Chest x-ray showing mild congestive failure. BNP 3839. - Echo 45% TRAV: resolved. recheck BMP today- urine looks concentrated, poor po restart IVF gentle rate 40 cc/hr - ff BMP- for cath in am Pyuria- culture- no growth S/P Rocephin DELIRIUM, DEMENTIA: [facility] ACQUIRED DELIRIUM. PT W DEPRESSIVE MOOD AT BASELINE. HYPOKALEMIA: ff BMP. corrected DVT prophylaxis: SCD'S, on Heparin drip. Jamaal Oviedo MD May 25, 2017 08:07
--- NOTE | 2017-05-25 08:09 | MB ---
cc: MICHAEL ODOM DATE OF CONSULTATION: 05/22/2017 HISTORY OF PRESENT ILLNESS: This is an 82-year-old male who lives with his daughter who has been having some increasing generalized weakness, malaise. Per the daughter, he apparently has been confused with some hallucinations and had a fall wherein he did not injure himself. He has been weak for over a week. He has been complaining of some abdominal pain and bowel incontinence for a couple of weeks, saw GI specialist and had an MRI done at [place] [facility]. A CT scan was done at [facility] prior to admission which showed some faint gallstones, some large posterior layering, bilateral effusions, uncomplicated diverticulum of the colon. No acute abdominal process. He was treated also for shortness of breath and was given some IV Lasix for congestive heart failure. We were consulted after the patient underwent an echocardiogram which showed an ejection fraction of 35% to 40%, mild left ventricular hypertrophy, inferior wall hypokinesis, aortic valve area 0.44, mild mitral valve regurgitation. He then also underwent dobutamine stress echocardiogram which showed an aortic valve peak gradient of 57, a mean gradient of 32, low flow, low-grade and severe aortic stenosis. We were consulted regarding evaluation for open aortic valve replacement versus transcatheter aortic valve replacement. PAST MEDICAL HISTORY: His past medical history includes: 1. Coronary artery disease. Apparently he has had a stent in the past. 2. Congestive heart failure with ejection fraction of 35%. 3. Diabetes mellitus on Januvia. 4. Gastroesophageal reflux disease (GERD). 5. Depression. 6. Probable underlying dementia. 7. Significant frailty with low gait speed. The patient is disheveled and appears to have difficulty with self activities of daily living. PAST SURGICAL HISTORY: Stent placement. ALLERGIES: NO KNOWN ALLERGIES. HOME MEDICATIONS: 1. Trazodone 200 at bedtime. 2. Ambien 5 p.o. at bedtime. 3. Metoprolol 25 twice a day. 4. Januvia 100 daily. 5. Nitro PRN. 6. Aspirin 81 daily. 7. Tramadol 50 q. 6 PRN. 8. Omeprazole 20 daily. 9. Persantine 200 / 25 p.o. daily. FAMILY HISTORY: Noncontributory. SOCIAL HISTORY: The patient lives with his daughter. Apparently he is a . He quit smoking and drinking earlier this year. He does not drive. He uses a walker to ambulate. Apparently he has had multiple falls in the past. REVIEW OF SYSTEMS: Review of systems as above in the history of present illness out of twelve systems unremarkable. PHYSICAL EXAMINATION: GENERAL: On exam, this is a very frail-appearing gentleman stated age. The patient is awake and alert but a very, very poor historian. Question any of his answers being correct. Very disheveled and unkempt. HEAD, EYES, EARS, NOSE, THROAT: Head is normocephalic, atraumatic. The sclerae are without injection. Oral mucosa pink, moist. NECK: The neck is supple. No jugular venous distention or bruits. HEART: Heart sounds S1-S2 with a grade 2-3/6 systolic murmur. LUNGS: Diminished in the bases. ABDOMEN: Abdomen soft flat and nontender. No masses or organomegaly. EXTREMITIES: No clubbing. He has very poor peripheral vascular disease in his lower extremities with chronic venous stasis. He has multiple ecchymotic areas on his upper extremities healing different scabs on his arms and legs. He does have palpable distal pulses but they are very faint and the tips of his toes have some chronic stasis and some very poor capillary refill. SKIN: Multiple keratotic flat type lesions on his back. LABORATORY DATA: His lab work shows: Hemoglobin 13, hematocrit of 40, white cell count of 9.5, platelet count of 127,000. Sodium 139, potassium 3.9, BUN of 288, creatinine 1.39, magnesium was 1.7. Troponin was 0.92, 0.81. BNP of 3800. INR was 3.1. Urinalysis did show trace leukocyte esterase, MRSA-positive. Negative microbiology. Blood cultures show no growth. No growth in the urine. IMAGING STUDIES: CT brain shows some aging brain with general volume loss and calcified atherosclerotic disease. No evidence of acute infarct, hemorrhage or mass or edema. Chest x-ray showed cardiomegaly with mild congestive heart failure. EKGS: EKG showed some sinus arrhythmia, left ventricular hypertrophy by EKG criteria, first-degree AV block. He has some anteroseptal changes with T wave inversion anterolateral leads, which may be secondary to his left ventricular hypertrophy. IMPRESSION: This is a very frail 82-year-old gentleman with severe aortic stenosis with dobutamine stress echocardiogram showing low flow, low-gradient severe stenosis. At this time, secondary to the patient's extreme frailty, even though we do not have the entire frailty score, he has extreme low gait speech and appears very difficult to complete his self activities of daily living and care for himself. His other major comorbidities include coronary artery disease, chronic kidney disease, recent NSTEMI, diabetes mellitus. RECOMMENDATIONS: 1. Recommend at this time evaluation for transcatheter aortic valve replacement only. 2. Recommendations further as per the heart catheterization which will be scheduled for Thursday. Dictated by RUBEN Cho MD GREGOR Amaya/LIBRADO /2:44 PM /8:05 AM
--- NOTE | 2017-05-25 08:28 | PD.CARD.PN ---
Subjective Subjective Remarks no complaints mental status at baseline discussed case with dr. han Objective Medications Active Medications Sodium Chloride (NS 1000 ml Inj) 1,000 ml @ 42 mls/hr [id number] IV Last administered on 05/24/17t 21:13; Admin Dose 42 MLS/HR; Start 05/24/17 at 16:15 Vital Signs / I&O Vital Signs Date Time Temp Pulse Resp B/P Pulse Ox O2 Delivery O2 Flow Rate FiO2 05/25/17 04:50 146/78 05/25/17 04:00 Room Air 05/25/17 04:00 97.4 75 20 187/97 98 05/25/17 00:00 97.7 70 20 138/62 98 05/25/17 00:00 Room Air 05/24/17 20:32 70 05/24/17 20:00 Room Air 05/24/17 20:00 97.8 67 20 140/65 98 05/24/17 18:48 148/68 05/24/17 16:00 97.3 77 20 194/91 97 05/24/17 12:00 97.8 76 20 183/96 98 05/24/17 09:00 Room Air I/O 05/24/17 05/24/17 05/24/17 05/25/17 05/25/17 05/25/17 07:00 15:00 23:00 07:00 15:00 23:00 Intake Total 0 ml 240 ml 480 ml 387 ml Output Total 250 ml 250 ml 400 ml Balance -250 ml -10 ml 480 ml -13 ml Intake Oral 0 ml 240 ml 480 ml 0 ml IV Total 387 ml Output Urine Total 250 ml 250 ml 400 ml # Voids 1 2 # Bowel Movements 1 1 1 2 Physical Exam NECK: Supple, trachea midline. No JVD or lymphadenopathy. CARDIOVASCULAR: Regular rate and rhythm 3/6 SM. RESPIRATORY: Breath sounds equal bilaterally. No accessory muscle use. GASTROINTESTINAL: Abdomen soft, non-tender, nondistended. MUSCULOSKELETAL: No cyanosis, or edema. BACK: Nontender without obvious deformity. No CVA tenderness. Laboratory Laboratory Tests Test 05/24/17 13:30 Sodium Level 137 MEQ/L Potassium Level 3.6 MEQ/L Chloride Level 101 MEQ/L Carbon Dioxide Level 30.8 MEQ/L Anion Gap 5 MEQ/L Blood Urea Nitrogen 26 MG/DL Creatinine 1.13 MG/DL Estimat Glomerular Filtration 62 ML/MIN Rate Random Glucose 111 MG/DL Calcium Level 8.5 MG/DL Imaging Last Impressions Head CT 05/18/17 1053 Signed Impressions: Service Date/Time: Thursday, May 18, 2017 12:25 - CONCLUSION: Aging brain with generalized volume loss. Calcific atherosclerotic vascular disease. No evidence of acute infarct, hemorrhage, mass or edema. Neville Obrien MD Chest X-Ray 05/18/17 1053 Signed Impressions: Service Date/Time: Thursday, May 18, 2017 10:57 - CONCLUSION: Cardiomegaly with mild congestive failure. Minimal bibasilar parenchymal changes. Stephen Eric MD FACR Assessment and Plan Problem List: (1) Acute exacerbation of CHF (congestive heart failure) (2) Elevated troponin (3) Cellulitis of right anterior lower leg (4) UTI (urinary tract infection) Assessment and Plan NSTEMI - asa. statin. - severe by stress echocardiogram CHF - SOB improved cardiomyopathy - EF 35%. ischemic vs nonischemic Plan for [facility] today possible evaluation for TAVR Problem Qualifiers (1) Acute exacerbation of CHF (congestive heart failure): Qualified Code: I50.9 - Acute on chronic congestive heart failure, unspecified congestive heart failure type (2) UTI (urinary tract infection): Qualified Code: N30.00 - Acute cystitis without hematuria Napoleon Tidwell MD May 25, 2017 08:28
[2017-05-25] MEDS: DIPYRIDAMOLE/ASPIRIN 200 MG/25 MG CAP PO SCH ×2 (09:00→21:00)
[2017-05-25] MEDS: DOCUSATE SODIUM 50 MG/SENNA 8.6 MG TAB PO SCH ×2 (09:00→20:37)
[2017-05-25] MEDS: METOPROLOL SUCCINATE 25 MG EXTENDED RELEASE TAB PO SCH ×2 (09:03→20:36)
[2017-05-25] MEDS: PANTOPRAZOLE SOD 20 MG DELAYED RELEASE TAB PO SCH (09:04)
[2017-05-25] MEDS: SODIUM CHLORIDE 0.9% FLUSH 10 ML FLUSH IV FLUSH SCH ×2 (09:04→20:57)
[2017-05-25 10:02] LABS: APTT (PATIENT) 31.4 SEC (24.3-30.1)
[2017-05-25] MEDS ORDERED: HEPARIN-NS/PF INJ 500 ML ONE ×2 (15:05→15:54)
[2017-05-25] MEDS ORDERED: HEPARIN SODIUM - IV 10,000 UNITS/10 ML VIAL ONE (15:06)
[2017-05-25] MEDS ORDERED: MIDAZOLAM HCL 2 MG/2 ML VIAL ONE (15:06)
[2017-05-25] MEDS ORDERED: IOHEXOL 350 MG/ML 50 ML BTL (for Cath Lab) OTHER ONE (15:10)
[2017-05-25] MEDS ORDERED: IOHEXOL 350 MG/ML 100 ML BTL (for Cath Lab) OTHER ONE (15:10)
[2017-05-25] MEDS ORDERED: STERILE WATER FOR INJECTION 10 ML VIAL ONE (16:35)
[2017-05-25] MEDS ORDERED: BIVALIRUDIN 250 MG VIAL ONE (16:35)
[2017-05-25] MEDS ORDERED: CLOPIDOGREL 300 MG TAB ONE (16:56)
[2017-05-25] MEDS ORDERED: MISC INFORMATION XX ONE (17:00)
[2017-05-25] MEDS ORDERED: ATROPINE SULFATE 1 MG/ML VIAL IV PRN (17:00)
[2017-05-25] MEDS ORDERED: MORPHINE SULFATE 4 MG/ML INJ IV PUSH PRN (17:00)
[2017-05-25] MEDS ORDERED: SODIUM CHLOR 0.9% 250 ML INJ 250 ML IV PRN (17:00)
[2017-05-25] MEDS ORDERED: LIDOCAINE HCL 1% 50 ML VIAL INFIL PRN (17:00)
[2017-05-25] MEDS ORDERED: LIDOCAINE 2% JELLY 30 ML TUBE TOP PRN (17:00)
[2017-05-25] MEDS ORDERED: BACITRACIN OINT 0.9 GM PKT TOP ONE (17:00)
[2017-05-25] MEDS ORDERED: ASPIRIN EC 81 MG TABEC PO SCH (17:15)
--- NOTE | 2017-05-25 17:47 | CATHPROC ---
Amaru HIS Report Study Information Study Number Scheduled Start Study Start [id number] 05/25/2017 May 25 2017 3:05PM Referring Institution Admit Source Facility Department 1 Other [facility] Caseworker Physician and Clinical Staff Initial Napoleon Kemp Samantha, RN Circulator Clark RN, Marilee Sy RN Recorder Caesar Hobbs,(R) Scrub Gera Monge RCIS(BS) Procedures Performed Procedure Location (Site) Vessel Name Coronary Angiograms LCA Left Coronary Coronary Angiograms RCA Right Coronary PTCA LAD Dist Left Coronary Stent LAD Dist Left Coronary Wire insertion Fem Art (right) Femoral Art Equipment Time Assembler Musical Equipment Description Size Mfg Part Number Used/Scraped COPILOT VALVE, BLEEDBACK [id number] 16:37 [employer] Used CONTROL *[id number] Rachel Joyce Organic Salon INTERNATIONAL CATHETER, FR.7 BALLOON [id number] 15:32 FR 7 Used INC. WEDGE PRESSURE *[id number] TRANSDUCER, TRUWAVE [id number] 15:25 GUEVARA ANDRE * Used W/STOCKCOCK *[id number] [id number] *[id number] 534-620T *[id number] 534-622T *[id number] 534-621T *[id number] *[id number] 15:25 Run3D INDUSTRIES PACK, CCL CUSTOM * Used *[id number] 15:25 Run3D PACER PEN, SKIN DUAL W/ RULER * Used *[id number] BALLOON, 2.5 X 12MM SPRINTER [id number] 16:43 MEDTRONIC 12MM Used LEGEND *[id number] 16:48 MEDTRONIC STENT, 2.75 18 INTEGRITY 2.75 18 Used *[id number] 16:38 GCLABS ([employer]) 30 ROMULO INDEFLATOR Used *[id number] SHEATH, FR6 RADIAL PRELUDE 15:25 GCLABS ([employer]) FR 6 [id number] Used EASE 11CM [id number] 15:37 BuildingLayer MEDICAL SHEATH, FR6.5 PRELUDE 11CM FR 6.5 038ACT Used *[id number] 16:03 Building[employer] MEDICAL WIRE, EXCHANGE 260CM .035 260CM Used *[id number] 15:25 BuildingLayer MEDICAL WIRE, EXCHANGE 260CM 3MMJ 260CM Used *[id number] 15:32 NAMIC MANIFOLD, 2 PORT * Used *[id number] 15:25 NYCOMED OMNIPAQUE, 350 MG, 150ML 150ML [id number] Used [id number] 15:25 MACHADO MEDICAL BLANKET,WARM AIR CCL * Used *[id number] [id number] 15:26 TERUMO MEDICAL SHEATH, FR5 TERUMO (10CM) FR 5 Used *[id number] 15:26 TERUMO MEDICAL SHEATH, FR7 TERUMO (10CM) FR 7 Used *[id number] WIRE, RUNTHROUGH NS FLOPPY 16:34 TERUMO MEDICAL 180CM Used .014 180CM *[id number] 16:16 VASCULAR SOLUTIONS PIGTAIL DUAL LUMEN CATHETER FR 6 5540 *[id number] Used Equipment Model, Serial, Lot Number and Expiration Data Description Model Number Serial Number Lot Number Expiration Date SHEATH, FR6.5 PRELUDE 11CM [id number] 01-10-2020 STENT, 2.75 18 INTEGRITY [id number] 09-15-2018 History: Current Medications Medication Dosage/Unit Route Frequency Last Date/Time Taken ASA LIPITOR LOPRESSOR VASOTEC History: Allergies Allergy Reaction No Known Allergies *MDRO Multi-Drug Resistant Organism History: Risk Factors Family History of Hypertension Dyslipidemia Previous MA Previous Heart Failure Premature CAD Yes Yes No No Yes Prior Valve Prior PCI Prior PCIDate Prior CABG Surgery No Yes 05/12/2015 No Cerebrovascular Peripheral Artery Chronic Lung On Dialysis Diabetes Diabetes Therapy Disease Disease Disease No No No No Yes Oral History: CV Disease Selection Items Cardiomyopathy Known CAD History: Stress Tests Stress or Imaging Studies Performed No History: Other Disease Selection Items CAD HTN History: Other Current Smoker Method Quit Packs a Day Years Used Pack Years No Cigarettes 10 Years Ago 1 50 50 Labs Hgb (g/dl) Hct (%) WBC (l/cumm) Platelets (thousands) 11.60-17.00 35.00-51.00 4.00-11.00 150.00-450.00 12.8 39.3 8.5 123 Glucose (mg/dl) BUN (mg/dl) Creatinine (mg/dl) BUN:Creatinine (1:x) 74.00-106.00 7.00-18.00 0.50-1.30 10.00-20.00 111 26 1.1 23.6 Na (meq/l) K (meq/l) 136.00-145.00 3.50-5.10 137 3.6 INR (PTT:PT) 0.90-1.10 1.1 CPK-MB (ng/ML) 0.50-3.60 Not Drawn Medication Medication Total Dose (Bolus/Oral) Medication Total Dosage/Unit ANGIOMAX BOLUS 11 mL FENTANYL 50 mcg PLAVIX 600 mg VERSED 2 mg Medications (Bolus/Oral) Medication Time Given Dosage/Unit Administered By Reason VERSED 05/25/2017 3:35:25 PM 1 mg Nini Andre 1 mg VERSED given in lab by Nini Andre RN in Left Forearm via Peripheral IV. FENTANYL 05/25/2017 3:36:27 PM 25 mcg Nini Andre 25 mcg FENTANYL given in lab by Nini Andre RN in Left Forearm via Peripheral IV. VERSED 05/25/2017 4:11:20 PM 0.5 mg Aaliyah Burcharet 0.5 mg VERSED given in lab by Marilee Burch RN via Peripheral IV. VERSED 05/25/2017 4:24:42 PM 0.5 mg Kiersten, Marilee 0.5 mg VERSED given in lab by Marilee Burch RN via Peripheral IV. ANGIOMAX BOLUS 05/25/2017 4:38:41 PM 11 mL Nini Andre 11 mL ANGIOMAX BOLUS given in lab by Nini Andre RN via Peripheral IV. FENTANYL 05/25/2017 4:46:46 PM 25 mcg Nini Andre 25 mcg FENTANYL given in lab by Nini Andre RN via Peripheral IV. PLAVIX 05/25/2017 4:58:47 PM 600 mg Aaliyah Burcharet 600 mg PLAVIX given in lab by Marilee Burch RN via Oral. Medication (Drip) Medication Time Given Dosage/Unit Concentration/Unit Diluent (ml) Solution ANGIOMAX DRIP 05/25/2017 4:39:35 PM 1.75 mg/kg/hr 250 mg 50 NaCl .9 1.75 mg/kg/hr ANGIOMAX DRIP given in lab by Nini Andre RN via Peripheral IV. Pump/Drip Flow = 25.1 ml/hr using NaCl .9 with a concentration of 250 mg in 50 ml. IV Solutions 05/25/2017 3:16:21 PM 0 mL (IV) 500 NaCl .9 IV Solutions given in lab by Yunior Lauren RN in Left Forearm via Peripheral IV. Pump/Drip Flow = 20 m l/hr using NaCl .9. Initial Case Assessment Cardiovascular HR Rhythm NIBP Chest Pain 81 Sinus 192/103 0 Edema Present Skin color Skin None Normal Warm Dry Circulatory - Right Pulses Dorsalis Pedis Femoral 1 3 Scale (0,1,2,3,4,d) Circulatory - Left Pulses Dorsalis Pedis Femoral 1 3 Scale (0,1,2,3,4,d) Neurological State Oriented to time-place- Alert Moves all extremities person Respiration - General Respiration Rate SpO2 (%) O2 (lpm) (B/min) 21 97 0 Initial Case Assessment Cardiovascular HR Rhythm NIBP Chest Pain 76 sr 173/97 0 Edema Present Skin color Skin None Normal Warm Dry Circulatory - Right Pulses Dorsalis Pedis Femoral 1 3 Scale (0,1,2,3,4,d) Circulatory - Left Pulses Dorsalis Pedis Femoral 1 3 Scale (0,1,2,3,4,d) Neurological State Oriented to time-place- Alert Moves all extremities person Respiration - General Respiration Rate SpO2 (%) (B/min) 18 97 Chronological Log Time Study Chronological Log 15:10:46 Patient arrived via Bed. 15:10:47 Patient Name, D.O.B, / Armband Verified By R.N. 15:10:48 Consent signed by the physician and the patient and verified by the Corrections Caseworker staff. 15:10:48 Pre-op and post- op instructions given; patient acknowledges understanding of instructions. 15:10:49 Verbal Stimulation=2 Physical Stimulation=2 Airway=2 Respiration=2 TOTAL=8. (0=absent, 1=li mited, 2=present) 15:15:21 Presedation assessment performed by Corrections Caseworker RN. 15:15:25 Patient has been NPO for More than 6Hrs. 15:15:26 Skin Breakdown- abrasions and skin bruises all over. All extreamities. 15:16:10 Patient Warmer Placed on the Table. 15:16:12 Jud Prominences Protected 15:16:15 A # 18 IV was noted in the Forearm (left). Grade = 0 15:16:21 IV Solutions given in lab by Yunior Lauren RN in Left Forearm via Peripheral IV. Pump/Drip F low = 20 ml/hr using NaCl .9. 15:16:22 History and physical on the chart or being dictated. Vitals capture started with the following parameters, Patient=Adult, Interval=5 min, Initial Pr fbtbwf=959 mmHg, 15:16:26 Deflation Rate=5 mmHg, Cuff placed on Right Arm 15:16:29 Vitals capture stopped. 15:17:32 A # 20 IV was noted in the Wrist (left). Grade = 0 Vitals capture started with the following parameters, Patient=Adult, Interval=5 min, Initial Pr wwozhv=175 mmHg, 15:19:30 Deflation Rate=5 mmHg, Cuff placed on Right Arm 15:20:50 HR=83 bpm, XFMK=691/103 mmhg, SpO2=98.0 %, Resp=21 B/min, Pain=0, Rowena=10, Roe=2 15:25:17 HR=78 bpm, VPVM=649/102 mmhg, SpO2=96.0 %, Resp=21 B/min, Pain=0, Rowena=10, Roe=2 Assessment: Initial Case, HR=81 BPM, Rhythm=Sinus, TYBY=769/103 mmhg, Chest Pain=0, Edema=None, Color=Normal, Skin = Warm, Dry Right Pulses: Javier Ped=1, Femoral=3 15:28:30 Left Pulses: Javier Ped=1, Femoral=3 Neurological: State=Alert, Ox3, MESA Respiration: Resp=21 B/min, SpO2=97 %, O2=0 lpm 15:30:16 HR=80 bpm, SFXJ=435/113 mmhg, SpO2=98.0 %, Resp=23 B/min, Pain=0, Rowena=10, Roe=2 15:32:05 Bilateral groins prepped with 2% chlorhexidine, and with a 3 min. waiting time. 15:34:11 paged 15:34:14 arrived. 15:35:12 HR=79 bpm, RSXF=950/103 mmhg, SpO2=98.0 %, Resp=19 B/min, Pain=0, Rowena=10, Roe=2 15:35:25 1 mg VERSED given in lab by Nini Andre RN in Left Forearm via Peripheral IV. 15:35:34 Reference ECG taken 15:36:27 25 mcg FENTANYL given in lab by Nini Andre RN in Left Forearm via Peripheral IV. 15:39:07 Pressure channel 1 zeroed. 15:39:55 Pressure channel 2 zeroed. 15:40:16 HR=81 bpm, VCCF=526/100 mmhg, SpO2=96.0 %, Resp=22 B/min, Pain=0, Rowena=10, Roe=2 Time Out. Correct patient, correct procedure,correct physician, power injector loaded with cont rast with surgical team 15:42:39 present. Time Out Concurred by MD, individual staff in procedure 15:43:12 Case Start 15:43:52 Case Start 15:45:15 HR=69 bpm, VJUY=492/93 mmhg, SpO2=95.0 %, Resp=20 B/min, Pain=0, Rowena=10, Roe=2 15:50:12 HR=74 bpm, PWHD=371/93 mmhg, SpO2=97.0 %, Resp=18 B/min, Pain=0, Rowena=10, Roe=2 15:51:40 Access site was Right Femoral Artery. 15:52:00 A SHEATH, FR6.5 PRELUDE 11CM FR 6.5 was advanced into the Fem Art (right) using the Percuta neous technique. 15:55:09 HR=74 bpm, EZOT=979/95 mmhg, SpO2=96.0 %, Resp=22 B/min, Pain=0, Rowena=10, Roe=2 15:56:07 Access site was Right Femoral Vein. 15:56:18 A SHEATH, FR7 TERUMO (10CM) FR 7 was advanced into the Fem Vein (right) using the Percutane ous technique. 15:57:51 A CATHETER, FR.7 BALLOON WEDGE PRESSURE FR 7 was inserted via Fem Vein (right) Recorded Pressure: RA, HR=68, Condition=Condition 1 15:59:27 (Right Atrium) RA 6/4/3 Recorded Pressure: RV, HR=76, Condition=Condition 1 15:59:56 (Right Ventricle) RV 58/2/7 16:00:16 HR=73 bpm, JLTD=750/86 mmhg, SpO2=95.0 %, Resp=20 B/min, Pain=0, Rowena=10, Roe=2 16:05:13 HR=74 bpm, IJUN=248/94 mmhg, SpO2=95.0 %, Resp=17 B/min, Pain=0, Rowena=10, Roe=2 Recorded Pressure: PCW, HR=72, Condition=Condition 1 16:06:25 (Pulmonary Capillary Wedge) PCW 21/24/20 Recorded Pressure: MPA, HR=69, Condition=Condition 1 16:06:39 (Main Pulmonary Artery) MPA 66/25/41 16:07:47 Saturation: Site=Ao (Aorta) , O2=93.1 %, Hgb=12.8 gm/dl, Condition=Condition 1. Used in rossana culation. 16:07:52 Saturation: Site=PA (Pulmonary Artery) , O2=68.3 %, Hgb=12.8 gm/dl, Condition=Condition 1. Used in calculation. 16:07:58 Forreston Juan Daniel Catheter Removed A AL 1 INFINITI CATHETER FR 6 was advanced over a wire. OMNIPAQUE, 350 MG, 150ML 150ML was used for 16:08:35 injections. 16:10:49 HR=69 bpm, EDWI=053/92 mmhg, SpO2=95.0 %, Resp=17 B/min, Pain=0, Rowena=10, Roe=2 16:11:20 0.5 mg VERSED given in lab by Marilee Burch, HERMILO via Peripheral IV. 16:15:13 HR=71 bpm, PVOU=776/77 mmhg, SpO2=95.0 %, Resp=20 B/min, Pain=0, Rowena=10, Roe=2 After removing the current catheter a PIGTAIL DUAL LUMEN CATHETER FR 6 was advanced over a WIRE , EXCHANGE 16:16:42 260CM 3MMJ 260CM. Recorded Pressure: LV, Ao, HR=73, Condition=Condition 1 16:17:45 (Left Ventricle) LV 201/16/25, (Aorta) Ao 166/82/117 Recorded Pressure: LV, Ao, Ao, HR=76, Condition=Condition 1 (Left Ventricle) LV 200/13/26, 16:18:16 (Aorta) Ao 158/78/110, (Aorta) Ao 160/80/113 16:19:06 Catheter was removed 16:20:10 HR=76 bpm, MZVW=437/89 mmhg, SpO2=77.0 %, Resp=18 B/min, Pain=0, Rowena=10, Roe=2 A JL 4.0 INFINITI CATHETER FR 6 was advanced over a wire. OMNIPAQUE, 350 MG, 150ML 150ML was us ed for 16:20:30 injections. 16:20:41 The LCA was injected and visualized at various angles. OMNIPAQUE, 350 MG, 150ML 150ML used . 16:22:18 After removing the current catheter a catheter was advanced over a WIRE, EXCHANGE 260CM 3MM J 260CM. 16:24:42 0.5 mg VERSED given in lab by Marilee Burch RN via Peripheral IV. 16:25:15 The LCA was injected and visualized at various angles. OMNIPAQUE, 350 MG, 150ML 150ML used . 16:25:52 HR=75 bpm, YFFO=863/89 mmhg, Resp=15 B/min, Pain=0, Rowena=10, Roe=2 16:27:14 Catheter was removed A JR 4.0 INFINITI CATHETER FR 6 was advanced over a wire. OMNIPAQUE, 350 MG, 150ML 150ML was us ed for 16:28:55 injections. 16:29:33 The RCA was injected and visualized at various angles. OMNIPAQUE, 350 MG, 150ML 150ML used . 16:30:14 HR=76 bpm, WUXN=855/88 mmhg, Resp=14 B/min, Pain=0, Rowena=10, Roe=2 16:32:47 Catheter was removed A XB LAD 4.0 GUIDE CATHETER FR 6 was advanced over a wire. OMNIPAQUE, 350 MG, 150ML 150ML was u sed for 16:34:41 injections. 16:35:13 HR=76 bpm, WPPS=723/87 mmhg, Resp=16 B/min, Pain=0, Rowena=10, Roe=2 16:36:48 A WIRE, RUNTHROUGH NS FLOPPY .014 180CM 180CM was inserted via Fem Art (right). 16:38:41 11 mL ANGIOMAX BOLUS given in lab by Nini Andre, RN via Peripheral IV. 1.75 mg/kg/hr ANGIOMAX DRIP given in lab by Nini Andre, RN via Peripheral IV. Pump/Drip Flow = 25.1 16:39:35 ml/hr using NaCl .9 with a concentration of 250 mg in 50 ml. 16:40:09 Interventional wire has crossed the lesion 16:40:14 HR=75 bpm, BGXH=355/92 mmhg, Resp=12 B/min, Pain=0, Rowena=10, Roe=2 A BALLOON, 2.5 X 12MM SPRINTER LEGEND 12MM was inserted over WIRE, RUNTHROUGH NS FLOPPY .014 18 0CM 16:42:36 180CM via the LAD Dist. A BALLOON, 2.5 X 12MM SPRINTER LEGEND 12MM over a WIRE, RUNTHROUGH NS FLOPPY .014 180CM 180CM i n the 16:42:51 LAD Dist was inflated using a 30 ROMULO INDEFLATOR at 8 romulo for 15 sec. A BALLOON, 2.5 X 12MM SPRINTER LEGEND 12MM over a WIRE, RUNTHROUGH NS FLOPPY .014 180CM 180CM i n the 16:44:58 LAD Dist was inflated using a 30 ROMULO INDEFLATOR at 10 romulo for 35 sec. 16:45:15 HR=80 bpm, RTNQ=094/102 mmhg, Resp=19 B/min, Pain=0, Rowena=10, Roe=2 16:46:46 25 mcg FENTANYL given in lab by Nini Andre, HERMILO via Peripheral IV. 16:48:22 Balloon Removed. An STENT, 2.75 18 INTEGRITY 2.75 18 Bare Metal Stent was inserted through a XB LAD 4.0 GUIDE CA THETER FR 6 16:48:27 over a WIRE, RUNTHROUGH NS FLOPPY .014 180CM 180CM. A STENT, 2.75 18 INTEGRITY 2.75 18 was deployed using a 30 ROMULO INDEFLATOR at 10 atmospheres fo r 10 seconds in 16:49:40 the LAD Dist. 16:50:16 HR=79 bpm, VPEU=576/110 mmhg, SpO2=56.0 %, Resp=15 B/min, Pain=0, Rowena=10, Roe=2 16:52:08 Re-inflated the stent balloon in the LAD Dist to 10 ROMULO for 20 seconds. 16:52:53 Delivery device removed 16:54:35 Case End 16:55:19 HR=83 bpm, UJLU=464/94 mmhg, Resp=15 B/min, Pain=0, Rowena=10, Roe=2 16:58:47 600 mg PLAVIX given in lab by Marilee Burch RN via Oral. 17:00:18 HR=82 bpm, VSHW=430/97 mmhg, Resp=13 B/min, Pain=0, Rowena=10, Roe=2 17:05:20 HR=84 bpm, QRCS=608/97 mmhg, Resp=22 B/min, Pain=0, Rowena=10, Roe=2 17:05:50 Vitals capture stopped. Assessment: Initial Case, HR=76 BPM, Rhythm=sr, BSCN=969/97 mmhg, Chest Pain=0, Edema=None, Co pardeep=Normal, Skin = Warm, Dry Right Pulses: Javier Ped=1, Femoral=3 17:15:38 Left Pulses: Javier Ped=1, Femoral=3 Neurological: State=Alert, Ox3, MESA Respiration: Resp=18 B/min, SpO2=97 % 17:18:33 Patient moved to stretcher 17:20:42 No case complications noted. 17:20:44 Cine recording checked. 17:20:46 Bedside Report will be given. 17:20:48 Implantable Device card placed in patient's chart. 17:20:49 Contrast Scanned End Study - Contrast Media Used In Study Contrast Total Opened (mL) Total Used (mL) Total Wasted (mL) Omnipaque 140 140 0 End Study - Maximum Contrast Load Max Contrast Load (mL) 325.8 End Study - Radiation Exposure Fluoro Time (minutes) 19.3 End Study - Patient Disposition Complications Transferred To Interventional Outcome No Telemetry Bed No attempt made
[2017-05-25] MEDS: hydrALAZINE HCL 20 MG/ML VIAL IV PUSH PRN ×2 (17:54→18:52)
[2017-05-25] MEDS ORDERED: SODIUM CHLOR 0.9% 1000 ML INJ 1,000 ML IV ONE (18:00)
[2017-05-25] MEDS: traZODone HCL 100 MG TAB PO SCH (20:36)
[2017-05-25] MEDS: ATORVASTATIN 10 MG TAB PO SCH (20:37)
[2017-05-25] MEDS: ZOLPIDEM TARTRATE 5 MG TAB PO PRN (21:46)
[2017-05-25 23:03] LABS: BICARBONATE 23.9 MEQ/L (21.0-32.0)
[2017-05-26] VITALS (15 sets, daily range): BP systolic 108–167; BP diastolic 50–91; PULSE 73–93; RESP 16–20; TEMP 97.3–98.2; O2SAT 96–98
[2017-05-26 05:41] LABS: AUTOMATED NEUTROPHIL # 6.7 TH/MM3 (1.8-7.7); BASOPHIL # 0.1 TH/MM3 (0-0.2); BASOPHIL % 0.7 % (0.0-2.0); EOSINOPHIL # 0.1 TH/MM3 (0-0.4); EOSINOPHIL % 1.6 % (0.0-4.0); HEMATOCRIT 39.2 % (39.0-51.0); HEMO FLAGS DIFF FINAL; LYMPH % 12.3 % (9.0-44.0); LYMPHOCYTE # 1.1 TH/MM3 (1.0-4.8); MEAN CELL VOLUME 90.2 FL (80.0-100.0); MEAN CORPUSCULAR HEMOGLOBIN 30.4 PG (27.0-34.0); MEAN CORPUSCULAR HGB CONC 33.6 % (32.0-36.0); MONO % 8.6 % (0.0-8.0); NEUT % 76.8 % (16.0-70.0); PLATELET COUNT 136 TH/MM3 (150-450); RED BLOOD COUNT 4.35 MIL/MM3 (4.50-5.90); RED CELL DISTRIBUTION WIDTH 13.8 % (11.6-17.2); WHITE BLOOD COUNT 8.8 TH/MM3 (4.0-11.0)
[2017-05-26 05:59] LABS: BICARBONATE 24.2 MEQ/L (21.0-32.0); POTASSIUM 4.1 MEQ/L (3.5-5.1)
[2017-05-26 06:02] LABS: HDL CHOLESTEROL 60.1 MG/DL (40.0-60.0)
[2017-05-26] MEDS: INSULIN ASPART SUPPLEMENTAL SCALE SQ SCH ×4 (06:24→20:22)
--- NOTE | 2017-05-26 06:51 | MA ---
cc: MERCYVISHALMARYJO DATE: 05/25/2017 INDICATION Caf-FI-eezdectix VT. PROCEDURE PERFORMED 1. Fluoroscopy with interpretation. 2. Coronary angiography. 3. Left heart catheterization. 4. Right heart catheterization. 5. Percutaneous intervention with bare metal stent to the distal left anterior descending coronary artery. METHOD The risks, benefits and alternatives were discussed with the patient and daughter. Consent was obtained. The patient tolerated the procedure well without periprocedural complications. The right common femoral was cannulated and a 6-Trinidadian, 11 cm sheath was placed without difficulty. The right femoral vein was accessed and a 7-Trinidadian, 11 cm sheath was placed without difficulty. RIGHT HEARTH CATHETERIZATION A 7-Trinidadian [place]-Juan Daniel pulmonary arterial catheter was advanced under fluoroscopic guidance to the right atrium. Hemodynamics were performed in all chambers while advancing to the pulmonary capillary wedge position. HEMODYNAMICS 1. Right atrial pressure measured 6 mmHg. 2. Right ventricular pressure measured 58/2 mmHg. 3. Pulmonary arterial pressure measured 66/25 mmHg. 4. Pulmonary capillary wedge pressure measured 24 mmHg. 5. Cardiac output 5.4 liters per minute. 6. Cardiac index 2.7 liters per minute per meter squared. LEFT HEART CATHETERIZATION An AL-1 catheter was used to direct a straight wire across the aortic valve without difficulty. The AL-1 was advanced into the left ventricle. A 0.035 inch J-tip 260 cm wire was advanced down to the left ventricular apex. The AL catheter was removed. A 6-Trinidadian dual-lumen pigtail catheter was advanced to the left ventricle. Simultaneous left ventricular and aortic pressures were measured. Left ventricular pressure measured at 201/16 mmHg. Aortic pressure measured at 158/78 mmHg. The aortic valve area had a mean gradient of 37 mmHg. The aortic valve area was 0.47 centimeters squared. CORONARY ANGIOGRAPHY 1. The left main coronary has minor luminal irregularities. 2. The left anterior descending coronary has moderate calcium present in the proximal to mid segment. There is a diagonal branch with moderate diffuse disease throughout. The mid distal left anterior descending coronary artery has a 40% stenosis. The distal left anterior descending coronary has a 95% stenosis. The apical left anterior descending coronary has a 90% stenosis. 3. The left circumflex coronary gives rise to an obtuse marginal branch. There is 30% stenosis in the proximal segment. The first obtuse marginal branch has minor luminal irregularities. The second obtuse marginal branch is a 1 mm caliber size vessel with 95% subtotal occlusion. 4. The right coronary is a dominant vessel and tortuous. The right coronary has 30-40% stenosis throughout its proximal and midsegment. The distal vessel has moderate diffuse small vessel disease. PERCUTANEOUS INTERVENTION The case was discussed in detail with Dr. Kevin Pyle, auto transport driver. The patient is being considered for possible percutaneous aortic valve replacement. It was felt that we should intervene on the mid distal left anterior descending coronary stenosis since we are going to potentially be inducing ventricular tachycardia as part of that procedure and we did not want him to be ischemic. The left coronary circulation was selectively engaged with a 6-Trinidadian XB LAD 4.0 guide catheter. A 0.014 inch, 180 cm [employer] Runthrough wire was navigated down to the distal left anterior descending coronary artery. A 2.5 x 10 mm RX Euphora balloon was advanced down to the distal left anterior descending coronary and deployed on two sequential inflations to 8 atmospheres. Repeat angiography showed some residual stenosis. A 2.75 x 18 mm RX Integrity bare metal stent was advanced down to the distal left anterior descending coronary and deployed. Repeat angiography showed no residual stenosis, WILLIAM-III flow. The wire was removed. The guide catheter was removed. The sheath was sewn into place to be removed with manual hemostasis. CONCLUSIONS 1. Severe distal left anterior descending coronary artery stenosis. 2. Severe small vessel disease in the second obtuse marginal branch and right-sided posterior descending branch. 3. Successful percutaneous intervention with bare metal stent to the distal left anterior descending coronary artery. 4. Elevated left-sided filling pressures. 5. Normal cardiac output and index. 6. Moderate to severe pulmonary hypertension. 7. Severe aortic stenosis. PLAN Will load the patient with Plavix. Hopefully this will translate well with symptomatic improvement. Will allow for recovery and continue work-up for consideration of possible percutaneous aortic valve replacement. MD GEORGIE Paniagua/DENICE /5:11 PM /6:25 AM
--- NOTE | 2017-05-26 07:30 | EKG ---
Date Performed: 05/26/2017 Time Performed: 05:23:34 PTAGE: 82 years EKG: Baseline artifact present Sinus rhythm with 1st degree A-V block Indeterminate axis Septal and lateral ST-T changes are nonspecific Abnorma l ECG Compared to the PREVIOUS TRACING Nonspecific ST T-wave changes have improved. PREVIOUS TRACIN05/21/20 17 18.01 DOCTOR: Ben Loaiza Interpretating Date/Time 05/26/2017 07:29:53
--- NOTE | 2017-05-26 08:35 | PD.CARD.PN ---
Subjective Subjective Remarks denies chest pain Objective Vital Signs / I&O Vital Signs Date Time Temp Pulse Resp B/P Pulse Ox O2 Delivery O2 Flow Rate FiO2 05/26/17 08:00 98.2 73 18 158/91 97 05/26/17 06:00 80 05/26/17 05:00 78 05/26/17 04:00 84 18 108/50 98 05/26/17 04:00 77 05/26/17 03:00 80 05/26/17 02:00 84 05/26/17 01:00 84 05/26/17 00:00 82 20 129/83 96 05/26/17 00:00 83 05/25/17 23:00 86 05/25/17 22:00 Room Air 05/25/17 22:00 86 05/25/17 21:00 88 05/25/17 20:05 97.7 90 20 120/69 98 05/25/17 17:37 98 Room Air 05/25/17 12:03 97.6 69 22 181/89 98 I/O 05/25/17 05/25/17 05/25/17 05/26/17 05/26/17 05/26/17 07:00 15:00 23:00 07:00 15:00 23:00 Intake Total 387 ml 240 ml Output Total 400 ml 550 ml Balance -13 ml -310 ml Intake Oral 0 ml 240 ml IV Total 387 ml Output Urine Total 400 ml 550 ml # Voids 2 # Bowel Movements 2 Physical Exam GENERAL: Well-nourished, well-developed patient in no apparent distress. NECK: No JVD. No carotid bruit. CARDIOVASCULAR: Regular rate and rhythm. S1/S2 no rub or gallop. II/ AFNNIE LSB RESPIRATORY: No accessory muscle use. Clear to auscultation. Breath sounds equal bilaterally. GASTROINTESTINAL: Abdomen soft, non-tender, nondistended. MUSCULOSKELETAL: Extremities without clubbing, cyanosis, or edema. Laboratory Laboratory Tests Test 05/25/17 05/25/17 05/26/17 08:54 22:14 05:24 Activated Partial 31.4 SEC Thromboplast Time Sodium Level 136 MEQ/L 138 MEQ/L Potassium Level 4.0 MEQ/L 4.1 MEQ/L Chloride Level 103 MEQ/L 105 MEQ/L Carbon Dioxide Level 23.9 MEQ/L 24.2 MEQ/L Anion Gap 9 MEQ/L 9 MEQ/L Blood Urea Nitrogen 26 MG/DL 26 MG/DL Creatinine 1.15 MG/DL 1.15 MG/DL Estimat Glomerular Filtration 61 ML/MIN 61 ML/MIN Rate Random Glucose 183 MG/DL 106 MG/DL Calcium Level 8.0 MG/DL 8.2 MG/DL White Blood Count 8.8 TH/MM3 Red Blood Count 4.35 MIL/MM3 Hemoglobin 13.2 GM/DL Hematocrit 39.2 % Mean Corpuscular Volume 90.2 FL Mean Corpuscular Hemoglobin 30.4 PG Mean Corpuscular Hemoglobin 33.6 % Concent Red Cell Distribution Width 13.8 % Platelet Count 136 TH/MM3 Mean Platelet Volume 7.6 FL Neutrophils (%) (Auto) 76.8 % Lymphocytes (%) (Auto) 12.3 % Monocytes (%) (Auto) 8.6 % Eosinophils (%) (Auto) 1.6 % Basophils (%) (Auto) 0.7 % Neutrophils # (Auto) 6.7 TH/MM3 Lymphocytes # (Auto) 1.1 TH/MM3 Monocytes # (Auto) 0.8 TH/MM3 Eosinophils # (Auto) 0.1 TH/MM3 Basophils # (Auto) 0.1 TH/MM3 CBC Comment DIFF FINAL Differential Comment Total Creatine Kinase 230 U/L Triglycerides Level 64 MG/DL Cholesterol Level 166 MG/DL LDL Cholesterol 93 MG/DL HDL Cholesterol 60.1 MG/DL Cholesterol/HDL Ratio 2.76 RATIO Assessment and Plan Problem List: (1) Acute exacerbation of CHF (congestive heart failure) (2) Elevated troponin (3) Cellulitis of right anterior lower leg (4) UTI (urinary tract infection) Assessment and Plan CAD s/p BMS LAD plan is for CTA chest to further evaluate , plan to d/c to SNF tomorrow Problem Qualifiers (1) Acute exacerbation of CHF (congestive heart failure): Qualified Code: I50.9 - Acute on chronic congestive heart failure, unspecified congestive heart failure type (2) UTI (urinary tract infection): Qualified Code: N30.00 - Acute cystitis without hematuria Kei Pearson May 26, 2017 08:35
[2017-05-26] MEDS ORDERED: ASPIRIN 81 MG CHEW TAB PO SCH (09:00)
--- NOTE | 2017-05-26 09:54 | HHI.FPPN ---
Subjective Remarks TELE REVIEWED LABS REVIEWED PT AGITATED D/W RN Objective Vitals Vital Signs Date Time Temp Pulse Resp B/P Pulse Ox O2 Delivery O2 Flow Rate FiO2 05/26/17 08:00 98.2 73 18 158/91 97 05/26/17 07:00 Room Air 05/26/17 07:00 78 05/26/17 06:00 80 05/26/17 05:00 78 05/26/17 04:00 84 18 108/50 98 05/26/17 04:00 77 05/26/17 03:00 80 05/26/17 02:00 84 05/26/17 01:00 84 05/26/17 00:00 82 20 129/83 96 05/26/17 00:00 83 05/25/17 23:00 86 05/25/17 22:00 Room Air 05/25/17 22:00 86 05/25/17 21:00 88 05/25/17 20:05 97.7 90 20 120/69 98 05/25/17 17:37 98 Room Air 05/25/17 12:03 97.6 69 22 181/89 98 I/O 05/25/17 05/25/17 05/25/17 05/26/17 05/26/17 05/26/17 07:00 15:00 23:00 07:00 15:00 23:00 Intake Total 387 ml 240 ml Output Total 400 ml 550 ml Balance -13 ml -310 ml Intake Oral 0 ml 240 ml IV Total 387 ml Output Urine Total 400 ml 550 ml # Voids 2 # Bowel Movements 2 Result Diagram: 05/26/1752305/26/17523 Objective Remarks GENERAL: SKIN: Warm and dry. HEAD: Atraumatic. Normocephalic. EYES: Pupils equal and round. No scleral icterus. No injection or drainage. ENT: No nasal bleeding or discharge. Mucous membranes pink and moist. NECK: Trachea midline. No JVD. CARDIOVASCULAR: Regular rate and rhythm. RESPIRATORY: bilat R/R. Breath sounds equal bilaterally. GASTROINTESTINAL: Abdomen soft, non-tender, nondistended. Hepatic and splenic margins not palpable. MUSCULOSKELETAL: Extremities without clubbing, cyanosis, or edema. No obvious deformities. NEUROLOGICAL: Awake and alert. No obvious cranial nerve deficits. Motor grossly within normal limits. 1 out of 5 muscle strength in the arms and legs. Normal speech. PSYCHIATRIC: flat A/P Assessment and Plan Generalized weakness: secondary to underlying CAD/CHF or UTI. -PT eval after cardiology evaluation. NSTEMI: No specific complaints of chest pain but has had generalized weakness and shortness of breath. EKG reviewed with possible A. fib, no definite ischemic changes. -continue Aggrenox -OFF heparin GGT -LHC- 1. Severe distal left anterior descending coronary artery stenosis. 2. Severe small vessel disease in the second obtuse marginal branch and right-sided posterior descending branch. 3. Successful percutaneous intervention with bare metal stent to the distal left anterior descending coronary artery. 4. Elevated left-sided filling pressures. 5. Normal cardiac output and index. 6. Moderate to severe pulmonary hypertension. 7. Severe aortic stenosis Acute CHF exacerbation: Reported history of CHF by history, unknown type. Chest x-ray showing mild congestive failure. BNP 3839. - Echo 45% THROMBOCYTOPENIA: MONITOR PLTS TRAV: resolved. recheck BMP today- urine looks concentrated, poor po restart IVF gentle rate 40 cc/hr - ff BMP- for cath in am Pyuria- culture- no growth S/P Rocephin DELIRIUM, DEMENTIA: IMPROVING HOSPITAL ACQUIRED DELIRIUM. PT W DEPRESSIVE MOOD AT BASELINE. HYPOKALEMIA: ff BMP. corrected DVT prophylaxis: SCD'S, on Heparin drip. Jamaal Oviedo MD May 26, 2017 09:54
[2017-05-26] MEDS: METOPROLOL SUCCINATE 25 MG EXTENDED RELEASE TAB PO SCH ×2 (10:57→20:22)
[2017-05-26] MEDS: SODIUM CHLORIDE 0.9% FLUSH 10 ML FLUSH IV FLUSH SCH ×2 (10:57→20:22)
[2017-05-26] MEDS: DIPYRIDAMOLE/ASPIRIN 200 MG/25 MG CAP PO SCH ×2 (10:57→20:22)
[2017-05-26] MEDS: PANTOPRAZOLE SOD 20 MG DELAYED RELEASE TAB PO SCH (10:57)
[2017-05-26] MEDS: DOCUSATE SODIUM 50 MG/SENNA 8.6 MG TAB PO SCH ×2 (10:57→21:00)
[2017-05-26] MEDS: CLOPIDOGREL 75 MG TAB PO SCH (10:57)
[2017-05-26] MEDS ORDERED: IOHEXOL 350 MG/ML 10 ML VIAL (for RAD DIAG) IV ONE (15:09)
--- NOTE | 2017-05-26 17:25 | RADRPT ---
EXAM DATE/TIME: 05/26/2017 14:44 [facility] COMPARISON: CT BRAIN W/O CONTRAST, May 18, 2017, 12:25. INDICATIONS : AVR versus TAVR. IV CONTRAST: 97 cc Omnipaque 350 (iohexol) IV RADIATION DOSE: 9.36 CTDIvol (mGy) MEDICAL HISTORY : Hypertension. Diabetes SURGICAL HISTORY : None. ENCOUNTER: Initial ACUITY: 1 day PAIN SCALE: 0/10 LOCATION: chest TECHNIQUE: Volumetric scanning was performed using a multi-row detector CT scanner. The data was post processed with a variety of visualization algorithms including full volume maximum intensity projection, multi -planar sliding thin slab reformation, curved planar reformation, and surface rendering techniques. Using automated exposure control and adjustment of the mA and/or kV according to patient size, radiat ion dose was kept as low as reasonably achievable to obtain optimal diagnostic quality images. DIC OM format image data is available electronically for review and comparison. FINDINGS: CARDIAC: The coronary system is right dominant. There is atherosclerotic plaquing the coronaries. They we re not assessed in detail. AORTIC ROOT/VALVE: There is calcification of the aortic annulus and extending into the aortic valvular leaflets. 3 valvu lar leaflets are identified. The aortic root measures 3.3 cm at the sinotubular junction. The proxima l tubular portion of the ascending aorta measures 3.7 cm in maximum dimension. THORACIC AORTA: There is normal origin of the great vessels from the arch. The aortic arch is mildly aneurysmal measu ring approximately 3.1 x 3.2 cm throughout its course. There is moderate diffuse atherosclerotic plaq uing. The descending thoracic aorta is diseased at the upper limits of normal in size throughout its course. Peak dimension is just above the diaphragmatic hiatus where it measures 3.2 cm. There is mode rate diffuse atherosclerotic plaquing and mural thrombus. ABDOMINAL AORTA: The celiac and SMA origins are patent. There is high grade ostial stenosis at the origin of the SMA. There are single renal arteries bilaterally. There is extensive atherosclerotic plaque with moderate bilateral renal stenosis. The infrarenal aorta is at the upper limits of normal in size at 2.8 cm. Th ere is diffuse atherosclerotic plaquing with a small amount of diffuse pleural thrombus. The KARINA is p atent. Pelvis: There is mild aneurysmal dilation of the common iliac arteries bilaterally. The right common iliac luevano s a maximum dimension of 2.5 cm. There is fairly diffuse atherosclerotic plaque and mural thrombus. M aximum dimension of the left common iliac is 1.4 cm. The hypogastric on the left is occluded. There i s aneurysmal dilation of the hypogastric origin on the right with a maximum dimension of 1.6 cm. The external iliac circulation is heavily diseased but patent bilaterally. External iliac circulation on the left measures 9 mm. External iliac circulation on the right measures 9 mm. The common femorals ar e patent bilaterally. THORAX: The heart is enlarged. There is no significant hilar or mediastinal adenopathy. There are moderate si zed bilateral pleural effusions. There are COPD changes within the pulmonary parenchyma. ABDOMEN: The solid organs of the abdomen are grossly intact by arterial phase imaging. The gallbladder is mild ly distended with calcified gallstones. No retroperitoneal adenopathy is seen. No free air or free fl uid is present. There is facet degenerative changes throughout the spine. PELVIS: No iliac or inguinal adenopathy is seen. There is no free fluid within the pelvis. CONCLUSION: 1. Calcified aortic annulus and valvular leaflets with maximum dimension of the aortic root measured at 3.3 cm. The proximal tubular portion of the ascending aorta measures 3.7 cm. 2. 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 There is extensive atherosclerotic disease with fairly diffuse mural thrombus and calcified atherosclerotic plaque. 3. 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 Th is is described in detail above. 4. 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 5. Moderate grade stenosis in the ostial both renal arteries. 6. Moderate size bilateral pleural effusions. 7. Extensive atherosclerotic plaquing in the coronary arteries. Emanuel Eric MD on May 26, 2017 at 17:10 Board Certified Radiologist. This report was verified electronically.
[2017-05-26] MEDS: ATORVASTATIN 10 MG TAB PO SCH (20:22)
[2017-05-26] MEDS: traZODone HCL 100 MG TAB PO SCH (20:22)
[2017-05-27] VITALS (14 sets, daily range): BP systolic 150–153; BP diastolic 94–96; PULSE 62–80; RESP 16–18; TEMP 98.4; O2SAT 96–100
[2017-05-27] MEDS: INSULIN ASPART SUPPLEMENTAL SCALE SQ SCH ×2 (05:40→11:00)
[2017-05-27 06:58] LABS: APTT (PATIENT) 31.8 SEC (24.3-30.1)
[2017-05-27 07:01] LABS: BICARBONATE 23.5 MEQ/L (21.0-32.0); POTASSIUM 4.2 MEQ/L (3.5-5.1)
[2017-05-27 07:07] LABS: AUTOMATED NEUTROPHIL # 5.8 TH/MM3 (1.8-7.7); BASOPHIL # 0.1 TH/MM3 (0-0.2); BASOPHIL % 0.6 % (0.0-2.0); EOSINOPHIL # 0.4 TH/MM3 (0-0.4); EOSINOPHIL % 4.2 % (0.0-4.0); HEMATOCRIT 37.2 % (39.0-51.0); HEMO FLAGS DIFF FINAL; LYMPH % 15.6 % (9.0-44.0); LYMPHOCYTE # 1.3 TH/MM3 (1.0-4.8); MEAN CORPUSCULAR HEMOGLOBIN 30.9 PG (27.0-34.0); MEAN CORPUSCULAR HGB CONC 33.9 % (32.0-36.0); MONO % 10.4 % (0.0-8.0); NEUT % 69.2 % (16.0-70.0); PLATELET COUNT 141 TH/MM3 (150-450); RED BLOOD COUNT 4.09 MIL/MM3 (4.50-5.90); RED CELL DISTRIBUTION WIDTH 14.2 % (11.6-17.2); WHITE BLOOD COUNT 8.4 TH/MM3 (4.0-11.0)
--- NOTE | 2017-05-27 08:30 | PD.CARD.PN ---
Subjective Subjective Remarks No CV complaints Objective Vital Signs / I&O Vital Signs Date Time Temp Pulse Resp B/P Pulse Ox O2 Delivery O2 Flow Rate FiO2 05/27/17 08:13 98.4 76 18 153/94 100 05/27/17 06:00 77 05/27/17 05:00 65 05/27/17 04:00 63 05/27/17 04:00 62 16 153/94 96 05/27/17 03:00 65 05/27/17 02:00 70 05/27/17 01:00 73 05/27/17 00:00 78 16 150/96 97 05/27/17 00:00 73 05/26/17 23:00 77 05/26/17 22:00 82 05/26/17 21:00 82 05/26/17 20:00 98.2 93 16 132/74 97 05/26/17 20:00 93 05/26/17 19:00 90 05/26/17 13:30 97.3 81 16 167/90 97 I/O 05/26/17 05/26/17 05/26/17 05/27/17 05/27/17 05/27/17 07:00 15:00 23:00 07:00 15:00 23:00 Intake Total 240 ml 400 ml 120 ml Output Total 550 ml 452 ml 250 ml Balance -310 ml -52 ml -130 ml Intake Oral 240 ml 400 ml 120 ml Output Urine Total 550 ml 450 ml 250 ml Stool Total 2 ml Physical Exam GENERAL: Well-nourished, well-developed patient in no apparent distress. NECK: No JVD. No carotid bruit. CARDIOVASCULAR: Regular rate and rhythm. S1/S2 no rub or gallop. II/ FANNIE LSB RESPIRATORY: No accessory muscle use. Clear to auscultation. Breath sounds equal bilaterally. GASTROINTESTINAL: Abdomen soft, non-tender, nondistended. MUSCULOSKELETAL: Extremities without clubbing, cyanosis, or edema. Laboratory Laboratory Tests Test 05/27/17 06:25 White Blood Count 8.4 TH/MM3 Red Blood Count 4.09 MIL/MM3 Hemoglobin 12.6 GM/DL Hematocrit 37.2 % Mean Corpuscular Volume 91.0 FL Mean Corpuscular Hemoglobin 30.9 PG Mean Corpuscular Hemoglobin 33.9 % Concent Red Cell Distribution Width 14.2 % Platelet Count 141 TH/MM3 Mean Platelet Volume 7.5 FL Neutrophils (%) (Auto) 69.2 % Lymphocytes (%) (Auto) 15.6 % Monocytes (%) (Auto) 10.4 % Eosinophils (%) (Auto) 4.2 % Basophils (%) (Auto) 0.6 % Neutrophils # (Auto) 5.8 TH/MM3 Lymphocytes # (Auto) 1.3 TH/MM3 Monocytes # (Auto) 0.9 TH/MM3 Eosinophils # (Auto) 0.4 TH/MM3 Basophils # (Auto) 0.1 TH/MM3 CBC Comment DIFF FINAL Differential Comment Activated Partial 31.8 SEC Thromboplast Time Sodium Level 140 MEQ/L Potassium Level 4.2 MEQ/L Chloride Level 107 MEQ/L Carbon Dioxide Level 23.5 MEQ/L Anion Gap 10 MEQ/L Blood Urea Nitrogen 28 MG/DL Creatinine 1.29 MG/DL Estimat Glomerular Filtration 53 ML/MIN Rate Random Glucose 119 MG/DL Calcium Level 8.4 MG/DL Assessment and Plan Problem List: (1) Acute exacerbation of CHF (congestive heart failure) (2) Elevated troponin (3) Cellulitis of right anterior lower leg (4) UTI (urinary tract infection) Assessment and Plan CAD s/p BMS LAD plan, plan to d/c to SNF PAD seen on CTA plan medica management, ASA, Plavix BB. - plan for TAVR HTN - consider adding NIKI-I Problem Qualifiers (1) Acute exacerbation of CHF (congestive heart failure): Qualified Code: I50.9 - Acute on chronic congestive heart failure, unspecified congestive heart failure type (2) UTI (urinary tract infection): Qualified Code: N30.00 - Acute cystitis without hematuria Kei Pearson May 27, 2017 08:30
[2017-05-27] MEDS ORDERED: PLAV75TA29 PO (08:58)
[2017-05-27] MEDS ORDERED: LIPI10TA PO (08:58)
[2017-05-27] MEDS ORDERED: SENN1TAB PO (08:58)
[2017-05-27] MEDS ORDERED: ULTR50TA5 PO (09:08)
[2017-05-27] MEDS ORDERED: ASPI325T PO (09:08)
[2017-05-27] MEDS ORDERED: AMBI5TAB PO (09:08)
--- NOTE | 2017-05-27 09:09 | HHI.DCPOC ---
Discharge Care Plan Diagnosis: (1) UTI (urinary tract infection) (2) Elevated troponin (3) Acute exacerbation of CHF (congestive heart failure) Goals to Promote Your Health * To prevent worsening of your condition and complications * To maintain your health at the optimal level Directions to Meet Your Goals Take your medications as prescribed Follow your dietary instruction Follow activity as directed Keep your appointments as scheduled Take your immunizations and boosters as scheduled If your symptoms worsen call your PCP, if no PCP go to Urgent Care Center or Emergency Room Smoking is Dangerous to Your Health. Avoid second hand smoke Call the 24-hour hour crisis hotline for domestic abuse at Jamaal Oviedo MD May 27, 2017 09:09
--- NOTE | 2017-05-27 09:10 | HHI.DS ---
Discharge Summary Admission Date May 18, 2017 at 17:15 Discharge Date: May 27, 2017 Admitting Diagnosis acute exacerbation CHF. UTI. Elevated troponin. (1) Elevated troponin (2) Acute exacerbation of CHF (congestive heart failure) Procedures [facility] CBC/BMP: 05/27/17 0625 05/27/17 0625 Significant Findings Laboratory Tests Test 05/24/17 05/25/17 05/25/17 05/26/17 13:30 08:54 22:14 05:24 Blood Urea Nitrogen 26 MG/DL (7-18) 26 MG/DL (7-18) 26 MG/DL (7-18) Estimat Glomerular Filtration 62 ML/MIN (>89) 61 ML/MIN (>89) 61 ML/MIN (>89) Rate Random Glucose 111 MG/DL 183 MG/DL (74-106) (74-106) Activated Partial 31.4 SEC Thromboplast Time (24.3-30.1) Calcium Level 8.0 MG/DL 8.2 MG/DL (8.5-10.1) (8.5-10.1) Red Blood Count 4.35 MIL/MM3 (4.50-5.90) Platelet Count 136 TH/MM3 (150-450) Neutrophils (%) (Auto) 76.8 % (16.0-70.0) Monocytes (%) (Auto) 8.6 % (0.0-8.0) HDL Cholesterol 60.1 MG/DL (40.0-60.0) Test 05/27/17 06:25 Red Blood Count 4.09 MIL/MM3 (4.50-5.90) Hemoglobin 12.6 GM/DL (13.0-17.0) Hematocrit 37.2 % (39.0-51.0) Platelet Count 141 TH/MM3 (150-450) Monocytes (%) (Auto) 10.4 % (0.0-8.0) Eosinophils (%) (Auto) 4.2 % (0.0-4.0) Activated Partial 31.8 SEC Thromboplast Time (24.3-30.1) Blood Urea Nitrogen 28 MG/DL (7-18) Estimat Glomerular Filtration 53 ML/MIN (>89) Rate Random Glucose 119 MG/DL (74-106) Calcium Level 8.4 MG/DL (8.5-10.1) PE at Discharge GENERAL: SKIN: Warm and dry. HEAD: Atraumatic. Normocephalic. EYES: Pupils equal and round. No scleral icterus. No injection or drainage. ENT: No nasal bleeding or discharge. Mucous membranes pink and moist. NECK: Trachea midline. No JVD. CARDIOVASCULAR: Regular rate and rhythm. RESPIRATORY: No accessory muscle use. Clear to auscultation. Breath sounds equal bilaterally. GASTROINTESTINAL: Abdomen soft, non-tender, nondistended. Hepatic and splenic margins not palpable. MUSCULOSKELETAL: Extremities without clubbing, cyanosis, or edema. No obvious deformities. NEUROLOGICAL: Awake and alert. No obvious cranial nerve deficits. Motor grossly within normal limits. 2 out of 5 muscle strength in the arms and legs. Normal speech. PSYCHIATRIC: Appropriate mood and affect; insight and judgment normal. Hospital Course 82 Y CM, ADMIT WITH - Generalized weakness: secondary to underlying CAD/CHF or UTI. -PT eval after cardiology evaluation. NSTEMI: No specific complaints of chest pain but has had generalized weakness and shortness of breath. EKG reviewed with possible A. fib, no definite ischemic changes. -continue Aggrenox -OFF heparin GGT -LHC- 1. Severe distal left anterior descending coronary artery stenosis. 2. Severe small vessel disease in the second obtuse marginal branch and right-sided posterior descending branch. 3. Successful percutaneous intervention with bare metal stent to the distal left anterior descending coronary artery. 4. Elevated left-sided filling pressures. 5. Normal cardiac output and index. 6. Moderate to severe pulmonary hypertension. 7. Severe aortic stenosis Acute CHF exacerbation: Reported history of CHF by history, unknown type. Chest x-ray showing mild congestive failure. BNP 3839. - Echo 45% THROMBOCYTOPENIA: MONITOR PLTS TRAV: resolved. recheck BMP today- urine looks concentrated, poor po restart IVF gentle rate 40 cc/hr - ff BMP- for cath in am Pyuria- culture- no growth S/P Rocephin DELIRIUM, DEMENTIA: IMPROVING HOSPITAL ACQUIRED DELIRIUM. PT W DEPRESSIVE MOOD AT BASELINE. HYPOKALEMIA: ff BMP. corrected D/W [facility], SHE REQUESTS DC TODAY. I SUGGEST HOSPICE HE WANTS TO GO HOME, [facility] REQUESTS ONE LAST CHANCE FOR RECOVERY AT SNF FOR "MAYBE A WEEK THEN I WILL DECIDE." D/W DR MADRID, REQUESTS MEDS BELOW, ASA AND PLAVIX, F/U IN OFFICE... Discharge Disposition: Discharge to SNF Discharge Instructions DIET: Follow Instructions for: Heart Healthy Diet Activities you can perform: Regular-No Restrictions New Medications: Aspirin (Aspirin) 325 Mg Tab 325 MG PO DAILY VA #30 Ref 0 TAB Atorvastatin (Lipitor) 10 Mg Tab 10 MG PO HS hld #30 Ref 0 TAB Clopidogrel (Plavix) 75 Mg Tab 75 MG PO DAILY mi Days 30 TAB Sennosides-Docusate Sodium (Senna Plus 8.6-50 mg) 1 Tab Tab 1 TAB PO BID Constipation Days 30 TAB Tramadol (Ultram) 50 Mg Tab 50 MG PO Q6H PRN PAIN 5-10 #10 Ref 0 TAB Zolpidem (Ambien) 5 Mg Tab 5 MG PO HS PRN INSOMNIA #10 Ref 0 TAB Continued Medications: Metoprolol Succinate ER 24 HR (Metoprolol Succinate ER 24 HR) 25 Mg Tab 25 MG PO BID #30 Ref 0 TAB Nitroglycerin SL (Nitroglycerin SL) 0.4 Mg Subl 0.4 MG SL DIRECTED ONE TABLET UNDER THE TONGUE NEEDED FOR CHEST PAIN, MAY REPEAT EVERY FIVE MINUTES FOR A TOTAL OF 3 DOSES OR CALL 911 IF NO RELIEF PRN CHEST PAIN #100 Ref 0 TAB.SL Omeprazole (Omeprazole) 20 Mg Tab 20 MG PO DAILY #30 Ref 0 TAB Sitagliptin (Januvia) 100 Mg Tab 100 MG PO DAILY Blood Sugar Management #30 Ref 0 TAB Trazodone (Trazodone) 100 Mg Tablet 200 MG PO HS Control Depression #30 Ref 0 TAB Discontinued Medications: Aspirin (Aspirin) 81 Mg Chew 200 MG CHEW BID Ref 0 TAB Dipyridamole-Aspirin (Dipyridamole-Aspirin) 200-25 Mg Cap 1 CAP PO BID Prevent Blood Clot #60 Ref 0 CAP Tramadol (Tramadol) 50 Mg Tab 50 MG PO Q6H PRN PAIN #15 Ref 0 TAB Zolpidem (Ambien) 5 Mg Tab 5 MG PO HS PRN INSOMNIA Ref 0 TAB Jamaal Oviedo MD May 27, 2017 09:09
[2017-05-27] MEDS: CLOPIDOGREL 75 MG TAB PO SCH (09:15)
[2017-05-27] MEDS: DIPYRIDAMOLE/ASPIRIN 200 MG/25 MG CAP PO SCH (09:15)
[2017-05-27] MEDS: PANTOPRAZOLE SOD 20 MG DELAYED RELEASE TAB PO SCH (09:15)
[2017-05-27] MEDS: DOCUSATE SODIUM 50 MG/SENNA 8.6 MG TAB PO SCH (09:15)
[2017-05-27] MEDS: SODIUM CHLORIDE 0.9% FLUSH 10 ML FLUSH IV FLUSH SCH (09:15)
[2017-05-27] MEDS: METOPROLOL SUCCINATE 25 MG EXTENDED RELEASE TAB PO SCH (09:15)
== END 2017-05-27 12:59 | DRG 248 ==
LOC: NEPE 10:12 → NEDA 13:51 → OBSVTOIN 17:15 → NEDH 22:14 → HIMW 05-19 04:00 → N04A 05-21 14:23 → N04B 05-22 13:35 → HCIS 05-25 17:06
PROVIDERS: ADMIT Family Medicine; ATTEND Family Medicine
PROC: 4A023N8 Measurement of Cardiac Sampling and Pressure, Bilateral, Percutaneous Approach (ICD-10-PCS; 2017-05-25)
PROC: B2111ZZ Fluoroscopy of Multiple Coronary Arteries using Low Osmolar Contrast (ICD-10-PCS; 2017-05-25)
PROC: 02703DZ Dilation of Coronary Artery, One Artery with Intraluminal Device, Percutaneous Approach (ICD-10-PCS; principal; 2017-05-25 15:00)
DX: I21.4 Non-ST elevation (NSTEMI) myocardial infarction (principal); I50.23 Acute on chronic systolic (congestive) heart failure; N17.9 Acute kidney failure, unspecified; I42.9 Cardiomyopathy, unspecified; D69.6 Thrombocytopenia, unspecified; F03.90 Unspecified dementia, unspecified severity, without behavioral disturbance, psychotic disturbance, mood disturbance, and anxiety; F05 Delirium due to known physiological condition; E11.22 Type 2 diabetes mellitus with diabetic chronic kidney disease; N30.00 Acute cystitis without hematuria; I13.0 Hypertensive heart and chronic kidney disease with heart failure and stage 1 through stage 4 chronic kidney disease, or unspecified chronic kidney disease; L03.115 Cellulitis of right lower limb; I27.2 Other secondary pulmonary hypertension; I35.0 Nonrheumatic aortic (valve) stenosis; I25.10 Atherosclerotic heart disease of native coronary artery without angina pectoris; K21.9 Gastro-esophageal reflux disease without esophagitis; F32.9 Major depressive disorder, single episode, unspecified; E87.6 Hypokalemia; H91.90 Unspecified hearing loss, unspecified ear; K57.30 Diverticulosis of large intestine without perforation or abscess without bleeding; K80.20 Calculus of gallbladder without cholecystitis without obstruction; N18.9 Chronic kidney disease, unspecified; Z91.81 History of falling; Z87.891 Personal history of nicotine dependence; Z95.5 Presence of coronary angioplasty implant and graft; Z79.84 Long term (current) use of oral hypoglycemic drugs; Z79.82 Long term (current) use of aspirin; R29.6 Repeated falls
CPT/HCPCS: 51702; 70450; 71010; 74174; 76937; 80048; 80053; 80061; 81001; 82550; 82810; 82948; 83605; 83735; 83880; 84100; 84443; 84484; 85025; 85027; 85610; 85730; 87040; 87086; 87641; 92928; 93005; 93306; 93350; 93454; 94010; C1725; C1769; C1876; C1887; C1893; J0360; J0583; J0696; J1250; J1644; J1815; J1940; J2250; J3010; J7030; Q9967

== ENCOUNTER 2017-06-15 05:28 | Inpatient (IN) | payer MEDICARE, BC, OTHER ==
[2017-06-15] VITALS (17 sets, daily range): BP systolic 141–221; BP diastolic 57–127; PULSE 51–73; RESP 12–18; TEMP 94–97.6; O2SAT 96–98
[~2017-06-15] VITALS: Ht 182.9 cm; Wt 100.0 kg
[~2017-06-15 05:28] MED LIST changes: -ACET325T PO; -AMIO200T PO; -AMLO5TAB2 PO; -ASPI1TAB69 PO; +ASPI325T PO; -ATOR1TAB18 PO; -CLIN1CAP5 PO; -HYDR25TA35 PO; +LIPI10TA PO; -MILKSUS PO; +PLAV75TA29 PO; +SENN1TAB PO; -TRAM50TA PO; +TRAZ100T6 PO; +ULTR50TA5 PO
[2017-06-15] MEDS ORDERED: SODIUM CHLOR 0.9% 1000 ML INJ 1,000 ML IV ONE (05:40)
--- NOTE | 2017-06-15 05:44 | PD ---
HPI Chief Complaint: Altered Mental Status Time Seen by Provider: 05:39 Travel History International Travel<30 days: No Contact w/Intl Traveler<30days: No Traveled to known affect area: No History of Present Illness HPI The patient is an 82 year old male who presents to the [facility] emergency department with a history of decreased level of consciousness that was first noticed at his jail at approximately 5 AM when he attempted to take his blood pressure. The patient has a baseline level of dementia with confusion, however he is normally responsive. The patient was not responding to having his blood pressure checked, therefore they awakened him. When they awakened him he was noted to be nonverbal, intermittently having garbled unintelligible speech. The patient had a decreased level of consciousness without any purposeful motor activity other than responding to painful stimulation. Ambulance services reported that the patient's blood pressure has been being checked more frequently as his blood pressure has been fluctuating high and low. According to the record, the patient last received a clonidine for elevated blood pressure yesterday. He has not had any known fevers, cough, congestion according to ambulance services. There was no reported history of recent vomiting or diarrhea. Unfortunately on arrival, the patient is not able to provide any other significant history. The patient's other history is obtained by reviewing the jail record and the patient's electronic medical record. The patient does have a history of coronary artery disease. The patient is currently on Plavix and 325 mg of aspirin daily. The patient's blood sugar prior to arrival by ambulance services with the 106. The patient's family arrives at the bedside and reports that the patient has not been well since . She reports that he has a history of short-term memory loss related to dementia, however on he began to have increased confusion with paranoid delusions. She reports that he had similar symptoms when he had a urinary tract infection in the past. She reports that she has been asking the jail to do a urinalysis for days. She reports that it was finally done yesterday, however they have not received the results. She reports that over the last 2 days he's had garbled speech that is intermittently intelligible. She reports that he is also been experiencing generalized weakness. She reports to me that the patient has discussed with his primary care physician that he does not want to be resuscitated. She reports that she is also aware of these wishes. A DNR was placed on record for the patient. [facility] Past Medical History Narrative Medical The patient's past medical history is significant for dementia, hypertension, congestive heart failure, coronary artery disease, hyperlipidemia, diabetes mellitus, History of urinary tract infection Congestive Heart Failure: Yes Diabetes: Yes Diminished Hearing: Yes Hypertension: Yes Integumentary: Yes (DRY, SCALY SKIN ) Past Surgical History Narrative Surgical The patient's past surgical history is significant for coronary artery stent placement. Coronary Stent: Yes Social History Alcohol Use: Yes Tobacco Use: Yes Substance Use: No Allergies-Medications (Allergen,Severity, Reaction): Coded Allergies: *MDRO Multi-Drug Resistant Organism (Verified Adverse Reaction, Unknown, ) MRSA PCR + 05/19/2017 Reported Meds & Prescriptions Reported Meds & Active Scripts Active Aspirin 325 Mg Tab 325 Mg PO DAILY Ambien (Zolpidem Tartrate) 5 Mg Tab 5 Mg PO HS PRN Ultram (Tramadol HCl) 50 Mg Tab 50 Mg PO Q6H PRN Senna Plus 8.6-50 mg (Sennosides-Docusate Sodium) 1 Tab Tab 1 Tab PO BID 30 Days Plavix (Clopidogrel Bisulfate) 75 Mg Tab 75 Mg PO DAILY 30 Days Lipitor (Atorvastatin Calcium) 10 Mg Tab 10 Mg PO HS Reported Xanax (Alprazolam) 0.25 Mg Tab 0.25 Mg PO DAILY PRN Metoprolol Tartrate 50 Mg Tab 50 Mg PO BID Trazodone (Trazodone HCl) 100 Mg Tablet 200 Mg PO HS Nitroglycerin SL (Nitroglycerin) 0.4 Mg Subl 0.4 Mg SL DIRECTED PRN ONE TABLET UNDER THE TONGUE NEEDED FOR CHEST PAIN, MAY REPEAT EVERY FIVE MINUTES FOR A TOTAL OF 3 DOSES OR CALL 911 IF NO RELIEF Januvia (Sitagliptin Phosphate) 100 Mg Tab 100 Mg PO DAILY Omeprazole 20 Mg Tab 20 Mg PO DAILY Review of Systems ROS Limitations: Altered Mental Status, Poor Historian Musculoskeletal: No: Pain Neurologic: Positive: Weakness (generalized weakness), Change in Mentation, Slurred Speech, No: Focal Abnormalities, Sensory Disturbance Physical Exam Narrative General: The patient is a well-developed well-nourished male in no acute distress, intermittently snoring on exam. Head and Neck exam: Head is normocephalic atraumatic. Eyes: EOMI, pupils are equal round and reactive to light. Nose: Midline septum with pink mucous membranes Mouth: Dentition unremarkable. Moist mucus membranes. Posterior oropharynx is not erythematous. No tonsillar hypertrophy. Uvula midline. Airway patent. Neck: No palpable lymphadenopathy. No nuchal rigidity. No thyromegaly. Cardiovascular: Regular rate and rhythm without murmurs, gallops, or rubs. Lungs: Clear to auscultation bilaterally. No wheezes, rhonchi, or rales. Abdomen: Soft, without tenderness to palpation in all 4 quadrants of the abdomen. No guarding, rebound, or rigidity. Normal bowel sounds are audible. No tenderness on palpation of McBurney's point. Negative Hidalgo's sign. Extremities: No clubbing, cyanosis, or edema. 2+ pulses in all 4 extremities. No Tenderness on palpation. Back: No costovertebral angle tenderness to palpation. Neurologic Exam: The patient has no facial asymmetry. The patient was initially drowsy, nonverbal with 2 mm pupils bilaterally. Narcan 0.4 mg was administered IV times one. The patient slowly became more awake although continued to be recurrently drowsy when not stimulated. The patient was following commands, moving both arms and moving both feet. The patient was able to lift his arms off the bed, however he was not lifting her legs off the bed. The patient began to try to speak. The patient denied having pain. The patient answered a question with a short sentence. The patient's speech is slurred, difficult to understand. The patient has upper dentures in place, no lower dentition. Skin Exam: The patient has a skin wound on the right lower extremity that has a clean, dry, and intact bandage in place. The patient has scattered lower extremity areas of ecchymosis in various stages of healing. The patient has no extremity pain on palpation. Data Data Last Documented VS Vital Signs Date Time Temp Pulse Resp B/P (MAP) Pulse Ox O2 Delivery O2 Flow Rate FiO2 06/15/17 07:00 51 17 146/57 (86) 97 Nasal Cannula 1.00 06/15/17 06:52 96.4 Orders Orders Activity Bed Rest (06/15/17 ) Electrocardiogram (06/15/17 ) I-Stat Creatinine (06/15/17 05:40) I-Stat Profile (06/15/17 05:40) Prothrombin Time / Inr (Pt) (06/15/17 05:40) Act Partial Throm Time (Ptt) (06/15/17 05:40) Complete Blood Count With Diff (06/15/17 05:40) Fibrinogen (06/15/17 05:40) Creatine Kinase (Cpk) (06/15/17 05:40) Troponin I (06/15/17 05:40) Ua Includes Microscopic (06/15/17 05:40) Drug Screen, Random Urine (06/15/17 05:40) Type And Screen (06/15/17 05:40) Ct Brain W/O Iv Contrast(Rout) (06/15/17 ) Blood Glucose (06/15/17 05:40) Ecg Monitoring (06/15/17 05:40) Neuro Checks Q2HX12,Q4H (06/15/17 05:40) Nursing Bedside Swallow Assess .ONCE (06/15/17 05:40) Iv Access Insert/Monitor (06/15/17 05:40) NPO (06/15/17 05:40) Oximetry (06/15/17 05:40) Oxygen Administration (06/15/17 05:40) Sodium Chlor 0.9% 1000 Ml Inj (Ns 1000 M (06/15/17 05:40) Resp Oxygen Dioni C Titrat 1-4 L (06/15/17 05:40) Cath For Specimen (06/15/17 05:40) Naloxone Inj (Narcan Inj) (06/15/17 05:53) Nicardipine Inj (Cardene Inj) (06/15/17 06:15) Nicardipine Inj (Cardene Inj) (06/15/17 06:45) Naloxone Inj (Narcan Inj) (06/15/17 06:45) Urinary Catheter Insert/Apply (06/15/17 06:36) (Hub Use Only)Inp Phy Cons/Ref (06/15/17 ) Piperacil-Tazo 3.375 Gm Premix (Zosyn 3. (06/15/17 07:30) Vancomycin Inj (Vancomycin Inj) (06/15/17 07:30) Lactic Acid Sepsis Protocol (06/15/17 07:19) Blood Culture (06/15/17 07:19) Admit Order (Ed Use Only) (06/15/17 07:23) Labs Laboratory Tests Test 06/15/17 05:43 06/15/17 06:00 White Blood Count 10.2 TH/MM3 Red Blood Count 4.17 MIL/MM3 Hemoglobin 12.1 GM/DL Bedside Hemoglobin 12.9 G/DL Hematocrit 37.2 % Bedside Hematocrit 38.0 % Mean Corpuscular Volume 89.3 FL Mean Corpuscular Hemoglobin 29.1 PG Mean Corpuscular Hemoglobin Concent 32.6 % Red Cell Distribution Width 13.8 % Platelet Count 205 TH/MM3 Mean Platelet Volume 7.3 FL Neutrophils (%) (Auto) 78.9 % Lymphocytes (%) (Auto) 10.7 % Monocytes (%) (Auto) 8.2 % Eosinophils (%) (Auto) 1.6 % Basophils (%) (Auto) 0.6 % Neutrophils # (Auto) 8.0 TH/MM3 Lymphocytes # (Auto) 1.1 TH/MM3 Monocytes # (Auto) 0.8 TH/MM3 Eosinophils # (Auto) 0.2 TH/MM3 Basophils # (Auto) 0.1 TH/MM3 CBC Comment AUTO DIFF Differential Comment AUTO DIFF CONFIRMED Platelet Estimate NORMAL Platelet Morphology Comment NORMAL Acanthocytes OCC Prothrombin Time 12.4 SEC Prothromb Time International Ratio 1.1 RATIO Activated Partial Thromboplast Time 24.5 SEC Fibrinogen 253 mg/dL Bedside Sodium 132 MMOL/L Bedside Potassium 6.1 MMOL/L Bedside Chloride 99 MMOL/L Bedside Blood Urea Nitrogen 35 MG/DL Bedside Creatinine 1.2 MG/DL Bedside Glucose 131 MG/DL Total Creatine Kinase 106 U/L Troponin I 0.03 NG/ML Urine Color YELLOW Urine Turbidity HAZY Urine pH 6.5 Urine Specific [place] 1.021 Urine Protein 100 mg/dL Urine Glucose (UA) NEG mg/dL Urine Ketones TRACE mg/dL Urine Occult Blood SMALL Urine Nitrite NEG Urine Bilirubin NEG Urine Urobilinogen LESS THAN 2.0 MG/DL Urine Leukocyte Esterase LARGE Urine RBC 6 /hpf Urine WBC 167 /hpf Urine WBC Clumps RARE Urine Bacteria RARE /hpf Urine Mucus FEW /lpf Urine Opiates Screen NEG Urine Barbiturates Screen NEG Urine Amphetamines Screen NEG Urine Benzodiazepines Screen NEG Urine Cocaine Screen NEG Urine Cannabinoids Screen NEG MDM Medical Decision Making Medical Screen Exam Complete: Yes Emergency Medical Condition: Yes Medical Record Reviewed: Yes Interpretation(s) Last Impressions Head CT 06/15/17 0000 Signed Impressions: Service Date/Time: Thursday, June 15, 2017 05:44 - CONCLUSION: No bleed or other acute intracranial abnormality. Eder Vásquez MD Differential Diagnosis Intracranial hemorrhage, versus hypertensive encephalopathy, versus altered mentation related to sepsis, versus urinary tract infection, versus ischemic stroke, versus pneumonia Narrative Course During the course of the patients emergency department visit, the patients history, examination, and differential diagnosis were reviewed with the patient. The patient had IV access obtained and blood work sent for analysis. The patient was placed on a patient monitor with oximetry and blood pressure monitoring. The patient was immediately transported to CT for imaging of his brain given his decreased level of consciousness and the concern for an intracranial hemorrhage. ECG on arrival back to the room shows a sinus rhythm heart rate is 63, no acute ST segment elevation or depression, QTC is prolonged at 506, QRS duration is 121 ms with a moderate intraventricular conduction delay. CT scan of the brain showed no acute evidence of intracranial hemorrhage. As the patient's pupils were small and the patient had bradycardia with a decreased level of consciousness, drowsiness noted, Narcan 0.4 mg IV was administered 1. The patient had some response and that he attempted to answer questions and was following commands. The patient would answer with short sentences that were difficult to understand. Due to my concern about of hypertensive encephalopathy, the patient was started on a Cardene drip to lower the patient's blood pressure to a systolic of 180, and approximately 20% decrease from his initial systolic blood pressure of 222. The patient's daughter arrives at the bedside and reports that he is DNR. A DNR was placed on record by me per her and the patient's wishes. The patients laboratory studies were reviewed and remarkable for a urinalysis that shows evidence of infection with pyuria and bacteriuria. This is a catheterized urine specimen. The patient was given Zosyn 3.375 g IV, vancomycin 1 g IV. A lactic acid was ordered to be done along with blood cultures 2 prior to antibiotic administration. The patients results were discussed with the patient, including the plan of care. I explained that further testing and/ or monitoring is indicated based on the patients history, examination, and/ or laboratory findings. Therefore, I recommended admission for additional evaluation. The patient expressed understanding and was agreeable with this plan. The patient was admitted to the hospital in guarded condition and sent to a bed under the [facility]. Critical Care Narrative Aggregate critical care time was 38 minutes. Time to perform other separately billable procedures was not included in the critical care time. My time did not include minutes spent treating any other patients simultaneously or on activities that did not directly contribute to the patient's treatment. The services I provided to this patient were to treat and/or prevent clinically significant deterioration that could result in: Cardiovascular collapse, versus respiratory failure, versus hypoxic brain injury, versus progression of infection, versus aspiration I provided critical care services requiring my management, as noted below: Chart data review, documentation time, medication orders and management, vital sign assessments/reviewing monitor data, ordering and reviewing lab tests, ordering and interpreting/reviewing x-rays and diagnostic studies, care of the patient and discussion of the patient with the admitting physicians. Sepsis Criteria SIRS Criteria (2 or more): Temp > 100.9 or < 96.8 Physician Communication Physician Communication The patient's case was discussed with Dr. Harper who did agree to admit the patient for further evaluation and treatment at this time for Diagnosis Primary Impression: Altered mental status Qualified Codes: R40.0 - Somnolence Additional Impressions: Urinary tract infection Qualified Codes: N39.0 - Urinary tract infection, site not specified Slurred speech Generalized weakness Admitting Information Admitting Physician Requests: Perla Juarez MD Jun 15, 2017 05:44
[2017-06-15] MEDS ORDERED: NALOXONE HCL 0.4 MG/ML AMP ONE (05:53)
--- NOTE | 2017-06-15 05:58 | RADRPT ---
EXAM DATE/TIME: 06/15/2017 05:44 [facility] COMPARISON: CT BRAIN W/O CONTRAST, May 18, 2017, 12:25. INDICATIONS : Altered mental status; possible bleed. RADIATION DOSE: 39.23 CTDIvol (mGy) MEDICAL HISTORY : Non-responsive. SURGICAL HISTORY : Non-responsive. ENCOUNTER: Initial ACUITY: 1 day PAIN SCALE: Non-responsive LOCATION: cranial TECHNIQUE: Multiple contiguous axial images were obtained of the head. Using automated exposure control and adj ustment of the mA and/or kV according to patient size, radiation dose was kept as low as reasonably a chievable to obtain optimal diagnostic quality images. DICOM format image data is available electro nically for review and comparison. FINDINGS: CEREBRUM: The ventricles are normal for age. No evidence of midline shift, mass lesion, hemorrhage or acute in farction. No extra-axial fluid collections are seen. Atrophy again noted. POSTERIOR FOSSA: The cerebellum and brainstem are intact. The 4th ventricle is midline. The cerebellopontine angle i s unremarkable. EXTRACRANIAL: The visualized portion of the orbits is intact. SKULL: The calvaria is intact. No evidence of skull fracture. CONCLUSION: No bleed or other acute intracranial abnormality. Eder Vásquez MD on June 15, 2017 at 5:56 Board Certified Radiologist. This report was verified electronically.
[2017-06-15 06:05] LABS: BASOPHIL # 0.1 TH/MM3 (0-0.2); BASOPHIL % 0.6 % (0.0-2.0); EOSINOPHIL # 0.2 TH/MM3 (0-0.4); EOSINOPHIL % 1.6 % (0.0-4.0); HEMATOCRIT 37.2 % (39.0-51.0); LYMPH % 10.7 % (9.0-44.0); LYMPHOCYTE # 1.1 TH/MM3 (1.0-4.8); MEAN CELL VOLUME 89.3 FL (80.0-100.0); MEAN CORPUSCULAR HEMOGLOBIN 29.1 PG (27.0-34.0); MEAN CORPUSCULAR HGB CONC 32.6 % (32.0-36.0); MONO % 8.2 % (0.0-8.0); NEUT % 78.9 % (16.0-70.0); PLATELET COUNT 205 TH/MM3 (150-450); RED BLOOD COUNT 4.17 MIL/MM3 (4.50-5.90); RED CELL DISTRIBUTION WIDTH 13.8 % (11.6-17.2); WHITE BLOOD COUNT 10.2 TH/MM3 (4.0-11.0)
[2017-06-15 06:06] LABS: APTT (PATIENT) 24.5 SEC (24.3-30.1); INTERNATIONAL NORMALIZED RATIO 1.1 RATIO; PROTHROMBIN TIME - PATIENT 12.4 SEC (9.8-11.6)
[2017-06-15] MEDS ORDERED: niCARdipine INJ 25 MG in SODIUM CHLOR 0.9% 250 ML INJ 250 ML IV PRN ×2 (06:15→06:45)
[2017-06-15 06:21] LABS: HEMO FLAGS AUTO DIFF
[2017-06-15 06:31] LABS: I-STAT POTASSIUM 6.1 MMOL/L (3.5-4.9)
[2017-06-15] MEDS ORDERED: METO50TA PO (06:43)
[2017-06-15] MEDS ORDERED: ALPR.25 PO (06:43)
[2017-06-15 06:44] LABS: ACANTHOCYTES OCC (NORMAL)
[2017-06-15 06:45] LABS: PLATELET ESTIMATE SMEAR NORMAL (NORMAL); PLATELET MORPHOLOGY NORMAL (NORMAL); SCAN/DIFF AUTO DIFF CONFIRMED
[2017-06-15] MEDS ORDERED: NALOXONE HCL 0.4 MG/ML AMP IV PUSH ONE (06:45)
[2017-06-15 06:51] LABS: BACTERIA, URINE RARE /hpf; BLOOD, URINE SMALL (NEG); GLUCOSE,URINE NEG (NEG); KETONE, URINE TRACE mg/dL (NEG); MUCUS URINE FEW /lpf (OCC); NITRITE,URINE NEG (NEG); PH, URINE 6.5 (5.0-8.5); URINE COLOR YELLOW (YELLW/STRAW)
[2017-06-15] MEDS ORDERED: VANCOMYCIN INJ 1,000 MG in SODIUM CHLOR 0.9% 250 ML INJ 250 ML IV ONE (07:30)
[2017-06-15] MEDS ORDERED: PIPERACIL-TAZO 3.375 GM PREMIX 50 ML IV ONE (07:30)
[2017-06-15] MEDS ORDERED: SODIUM CHLOR 0.9% 1000 ML INJ 1,000 ML IV SCH (07:31)
[2017-06-15] MEDS ORDERED: BISACODYL 10 MG SUPP RECTAL PRN (07:45)
[2017-06-15] MEDS ORDERED: ONDANSETRON HCL 4 MG/2 ML VIAL IVP PRN (07:45)
[2017-06-15] MEDS ORDERED: SENNOSIDES 8.6 MG TAB PO PRN (07:45)
[2017-06-15] MEDS ORDERED: MAGNESIUM HYDROXIDE SUSP 30 ML CUP PO PRN (07:45)
[2017-06-15] MEDS ORDERED: LACTULOSE SYRUP 20 GM/30 ML CUP PO PRN (07:45)
[2017-06-15] MEDS ORDERED: SODIUM CHLORIDE 0.9% FLUSH 10 ML FLUSH IV FLUSH PRN (07:45)
[2017-06-15] MEDS ORDERED: NALOXONE HCL 0.4 MG/ML AMP IV PRN (07:45)
--- NOTE | 2017-06-15 08:37 | RADRPT ---
EXAM DATE/TIME: 06/15/2017 08:17 [facility] COMPARISON: CHEST SINGLE AP, May 18, 2017, 10:57. INDICATIONS : Unresponsive, wheezing, short of breath MEDICAL HISTORY : None. SURGICAL HISTORY : None. ENCOUNTER: Initial ACUITY: 1 day PAIN SCORE: Non-responsive. LOCATION: Bilateral chest TECH NOTE: JENNIFER MAN MR#[id number] :33 Exam date/desc:June 15, 2017CHEST SINGLE AP FINDINGS: There is cardiomegaly, aortic calcification and patchy consolidation in lower lobes increased from pr evious. EKG leads overlie the chest. CONCLUSION: Worsening appearance of the chest. Tommy Ardon MD on June 15, 2017 at 8:35 Board Certified Radiologist. This report was verified electronically.
[2017-06-15] MEDS: PANTOPRAZOLE SOD 20 MG DELAYED RELEASE TAB PO SCH (08:59)
[2017-06-15] MEDS: METOPROLOL TARTRATE 50 MG TAB PO SCH ×2 (09:00→21:27)
[2017-06-15] MEDS: ASPIRIN 325 MG TAB PO SCH (09:00)
[2017-06-15] MEDS: CLOPIDOGREL 75 MG TAB PO SCH (09:00)
[2017-06-15] MEDS: SODIUM CHLORIDE 0.9% FLUSH 10 ML FLUSH IV FLUSH SCH ×2 (09:01→21:00)
--- NOTE | 2017-06-15 09:58 | HHI.HP ---
HPI [facility] Primary Care Physician Unknown Admission Diagnosis AMS, UTI Diagnoses: Travel History International Travel<30 Days: No Contact w/Intl Traveler <30 Da: No Traveled to Known Affected Are: No History of Present Illness 82-year-old male with a history of diabetes, CHF, coronary artery disease, severe aortic stenosis, who presents with altered mental status. Family not in the room at time of examination. History is severely limited as patient is a very poor historian. Patient mumbling, appears confused. He does follow simple commands, and is moving all extremities. History is obtained from ER team and chart review. Patient reported to be confused recently. Workup in ER with urinalysis elevated white blood cells, with CT head no acute findings. Chest x-ray with pulmonary edema. Urinalysis with white blood cell clumps. Review of Systems Review of systems unobtainable secondary to confusion Past Family Social History Past Medical History Coronary artery disease Severe aortic stenosis Moderate to severe pulmonary hypertension CHF Diabetes mellitus Hypertension GERD Depression Insomnia. Past Surgical History Recent PCI to second OM and right PDA May 2017 Also with PCI 2 years ago. Reported Medications Reported Meds & Active Scripts Active Aspirin 325 Mg Tab 325 Mg PO DAILY Ambien (Zolpidem Tartrate) 5 Mg Tab 5 Mg PO HS PRN Ultram (Tramadol HCl) 50 Mg Tab 50 Mg PO Q6H PRN Senna Plus 8.6-50 mg (Sennosides-Docusate Sodium) 1 Tab Tab 1 Tab PO BID 30 Days Plavix (Clopidogrel Bisulfate) 75 Mg Tab 75 Mg PO DAILY 30 Days Lipitor (Atorvastatin Calcium) 10 Mg Tab 10 Mg PO HS Reported Xanax (Alprazolam) 0.25 Mg Tab 0.25 Mg PO DAILY PRN Metoprolol Tartrate 50 Mg Tab 50 Mg PO BID Trazodone (Trazodone HCl) 100 Mg Tablet 200 Mg PO HS Nitroglycerin SL (Nitroglycerin) 0.4 Mg Subl 0.4 Mg SL DIRECTED PRN ONE TABLET UNDER THE TONGUE NEEDED FOR CHEST PAIN, MAY REPEAT EVERY FIVE MINUTES FOR A TOTAL OF 3 DOSES OR CALL 911 IF NO RELIEF Januvia (Sitagliptin Phosphate) 100 Mg Tab 100 Mg PO DAILY Omeprazole 20 Mg Tab 20 Mg PO DAILY Allergies: Coded Allergies: *MDRO Multi-Drug Resistant Organism (Verified Adverse Reaction, Unknown, ) MRSA PCR + 05/19/2017 Family History No family history of dementia reported. Social History Patient lives at [facility]. No reported tobacco, alcohol, drug use. Physical Exam Vital Signs Vital Signs Date Time Temp Pulse Resp B/P (MAP) Pulse Ox O2 Delivery O2 Flow Rate FiO2 06/15/17 09:00 Nasal Cannula 1.00 06/15/17 08:54 51 17 180/82 (114) 98 1.00 06/15/17 08:00 54 17 189/79 (115) 96 Nasal Cannula 1.00 06/15/17 07:30 59 18 155/89 (111) 96 Nasal Cannula 06/15/17 07:00 51 17 146/57 (86) 97 Nasal Cannula 1.00 06/15/17 06:52 96.4 62 18 159/69 (99) 96 Nasal Cannula 2.00 06/15/17 06:31 59 192/93 06/15/17 06:00 96.4 06/15/17 05:53 52 18 196/110 (138) 96 Nasal Cannula 2.00 06/15/17 05:40 Nasal Cannula 2.00 06/15/17 05:31 97.6 55 12 221/127 (158) 96 Physical Exam GENERAL: A 82-year-old male lying in bed. Asleep, wakes up for exam.. Confused. Unintelligible speech. SKIN: No rashes, ecchymoses or lesions. Cool and dry. HEAD: Atraumatic. Normocephalic. No temporal or scalp tenderness. EYES: Pupils equal round and reactive. Extraocular motions intact. No scleral icterus. No injection or drainage. ENT: Nose without bleeding, purulent drainage or septal hematoma. Throat without erythema, tonsillar hypertrophy or exudate. Uvula midline. Airway patent. NECK: Trachea midline. JVD.. Supple, nontender, no meningeal signs. CARDIOVASCULAR: Regular rate and rhythm with systolic murmur. RESPIRATORY: Clear to auscultation. Breath sounds equal bilaterally. No wheezes , rales, or rhonchi. GASTROINTESTINAL: Abdomen soft, non-tender, nondistended. No hepato-splenomegaly , or palpable masses. No guarding. MUSCULOSKELETAL: Extremities without clubbing, cyanosis, or edema. No joint tenderness, effusion, or edema noted. No calf tenderness. Negative Homans sign bilaterally. NEUROLOGICAL: Awake and alert. Cranial nerves II through XII intact. Motor and sensory grossly within normal limits. Five out of 5 muscle strength in all muscle groups. Normal speech. Laboratory Laboratory Tests Test 06/15/17 05:43 06/15/17 06:00 06/15/17 08:00 06/15/17 09:39 White Blood Count 10.2 Red Blood Count 4.17 Hemoglobin 12.1 Bedside Hemoglobin 12.9 Hematocrit 37.2 Bedside Hematocrit 38.0 Mean Corpuscular Volume 89.3 Mean Corpuscular Hemoglobin 29.1 Mean Corpuscular Hemoglobin Concent 32.6 Red Cell Distribution Width 13.8 Platelet Count 205 Mean Platelet Volume 7.3 Neutrophils (%) (Auto) 78.9 Lymphocytes (%) (Auto) 10.7 Monocytes (%) (Auto) 8.2 Eosinophils (%) (Auto) 1.6 Basophils (%) (Auto) 0.6 Neutrophils # (Auto) 8.0 Lymphocytes # (Auto) 1.1 Monocytes # (Auto) 0.8 Eosinophils # (Auto) 0.2 Basophils # (Auto) 0.1 CBC Comment AUTO DIFF Differential Comment AUTO DIFF CONFIRMED Platelet Estimate NORMAL Platelet Morphology Comment NORMAL Acanthocytes OCC Prothrombin Time 12.4 Prothromb Time International Ratio 1.1 Activated Partial Thromboplast Time 24.5 Fibrinogen 253 Bedside Sodium 132 Bedside Potassium 6.1 Bedside Chloride 99 Bedside Blood Urea Nitrogen 35 Bedside Creatinine 1.2 Bedside Glucose 131 Total Creatine Kinase 106 Troponin I 0.03 Urine Color YELLOW Urine Turbidity HAZY Urine pH 6.5 Urine Specific Dobson 1.021 Urine Protein 100 Urine Glucose (UA) NEG Urine Ketones TRACE Urine Occult Blood SMALL Urine Nitrite NEG Urine Bilirubin NEG Urine Urobilinogen LESS THAN 2.0 Urine Leukocyte Esterase LARGE Urine RBC 6 Urine WBC 167 Urine WBC Clumps RARE Urine Bacteria RARE Urine Mucus FEW Urine Opiates Screen NEG Urine Barbiturates Screen NEG Urine Amphetamines Screen NEG Urine Benzodiazepines Screen NEG Urine Cocaine Screen NEG Urine Cannabinoids Screen NEG Lactic Acid Level 1.0 Date/Time Source Procedure Growth Status 06/15/17 08:05 Blood Peripheral Aerobic Blood Culture Pending Received 9/4/17 08:05 Blood Peripheral Anaerobic Blood Culture Pending Received Result Diagram: 06/15/17 0543 Imaging Last Impressions Chest X-Ray 06/15/17 0755 Signed Impressions: Service Date/Time: Thursday, June 15, 2017 08:17 - CONCLUSION: Worsening appearance of the chest. Tommy Ardon MD Head CT 06/15/17 0000 Signed Impressions: Service Date/Time: Thursday, June 15, 2017 05:44 - CONCLUSION: No bleed or other acute intracranial abnormality. Eder Vásquez MD Captreasurei VTE Risk Assessment Caprini VTE Risk Assessment: Mod/High Risk (score >= 2) Caprini Risk Assessment Model Point Value = 1 Point Value = 2 Point Value = 3 Point Value = 5 Age 41-60 Minor surgery BMI > 25 kg/m2 Swollen legs Varicose veins or History of unexplained or recurrent spontaneous Oral contraceptives or hormone replacement Sepsis (< 1 month) Serious lung disease, including pneumonia (< 1 month) Abnormal pulmonary function Acute myocardial infarction Congestive heart failure (< 1 month) History of inflammatory bowel disease Medical patient at bed rest Age 61-74 Arthroscopic surgery Major open surgery (> 45 min) Laparoscopic surgery (> 45 min) Malignancy Confined to bed (> 72 hours) Immobilizing plaster cast Central venous access Age >= 75 History of VTE Family history of VTE Factor V Leiden Prothrombin [id number] Lupus anticoagulant Anticardiolipin antibodies Elevated serum homocysteine Heparin-induced thrombocytopenia Other congenital or acquired thrombophilia Stroke (< 1 month) Elective arthroplasty Hip, pelvis, or leg fracture Acute spinal cord injury (< 1 month) Prophylaxis Regimen Total Risk Factor Score Risk Level Prophylaxis Regimen 0-1 Low Early ambulation 2 Moderate Order ONE of the following: *Sequential Compression Device (SCD) *Heparin 5000 units SQ BID 3-4 Higher Order ONE of the following medications: *Heparin 5000 units SQ TID *Enoxaparin/Lovenox 40 mg SQ daily (WT < 150 kg, CrCl > 30 mL/min) *Enoxaparin/Lovenox 30 mg SQ daily (WT < 150 kg, CrCl > 10-29 mL/min) *Enoxaparin/Lovenox 30 mg SQ BID (WT < 150 kg, CrCl > 30 mL/min) AND/OR *Sequential Compression Device (SCD) 5 or more Highest Order ONE of the following medications: *Heparin 5000 units SQ TID (Preferred with Epidurals) *Enoxaparin/Lovenox 40 mg SQ daily (WT < 150 kg, CrCl > 30 mL/min) *Enoxaparin/Lovenox 30 mg SQ daily (WT < 150 kg, CrCl > 10-29 mL/min) *Enoxaparin/Lovenox 30 mg SQ BID (WT < 150 kg, CrCl > 30 mL/min) AND *Sequential Compression Device (SCD) Assessment and Plan Assessment and Plan //Acute Encephalopathy //History of dementia. -CT head with no acute findings. -Likely secondary to acute UTI versus CHF. -ABG, BNP ordered and pending. //UTI. -Urinalysis with 167 white blood cell. -Continue Broad-spectrum antibiotics. Follow-up urine cultures. -Ultrasound kidneys pending. //Hypokalemia. Potassium 6.1 on admission. -Likely secondary to hemolysis dehydration. -Furosemide given. -Repeat ordered and pending. //Coronary artery disease //Accelerated Hypertension admission. //Severe aortic stenosis //Pulmonary hypertension. -High blood pressure systolics in the 220s on admission. -Initially on nicardipine drip. -Chest x-ray reviewed with worsening pulmonary edema. -We'll start on amlodipine, hydralazine for afterload reduction the setting of severe aortic stenosis. Continue to monitor blood pressure adjust medications as necessary. -Continue home medications. Adjust medications as necessary //Diabetes mellitus. Chronic. -Diabetic diet. Insulin sliding scale. Continue to monitor blood sugars //Hyponatremia. Sodium 132 on admission. Repeat labs ordered and pending. //GERD. Chronic. Continue PPI. //Lipidemia. Chronic. Continue statin. //Insomnia. Hold Ambien due to altered mental status. //DVT prophylaxis. SCDs. Heparin subcutaneous. Discussed Condition With Patient, nurse, ED physician. Physician Certification 2 Midnight Certification Type: Admission for Inpatient Services Order for Inpatient Services The services are ordered in accordance with Medicare regulations or non- Medicare payer requirements, as applicable. In the case of services not specified as inpatient-only, they are appropriately provided as inpatient services in accordance with the 2-midnight benchmark. Estimated LOS (days): 3 days is the estimated time the patient will need to remain in the hospital, assuming treatment plan goals are met and no additional complications. Post-Hospital Plan: Not yet determined Brett Harper MD Jun 15, 2017 09:58
[2017-06-15] MEDS ORDERED: FUROSEMIDE 20 MG/2 ML VIAL IV PUSH ONE (10:00)
[2017-06-15] MEDS ORDERED: FUROSEMIDE 40 MG/4 ML VIAL IV PUSH ONE (10:00)
[2017-06-15 10:02] LABS: BLOOD GAS BASE EXCESS 0.9 mmol/L (-2-2); BLOOD GAS CARBOXYHEMOGLOBIN 1.8 % (0-4); BLOOD GAS HCO3 25 mmol/L (22-26); BLOOD GAS METHEMOGLOBIN 0.5 % (0-2); BLOOD GAS O2 HGB SATURATION 90 % (90-100); BLOOD GAS OXYGEN CONTENT 14.5 Vol % (12.0-20.0); BLOOD GAS PCO2 42 mmHg (38-42); BLOOD GAS PO2 66 mmHG (61-120); BLOOD GAS TOTAL HGB 11.4 G/DL (12.0-16.0); CRITICAL VALUE NO; DRAW SITE RT BRACHIAL; NUMBER OF ARTERIAL PUNCTURES 1; OXYGEN DEVICE RA; STAT YES; TEMP CORR TO 98.6; ULNAR PULSE Y
[2017-06-15 10:16] LABS: BICARBONATE 21.7 MEQ/L (21.0-32.0)
--- NOTE | 2017-06-15 10:18 | RADRPT ---
EXAM DATE/TIME: 06/15/2017 09:36 [place] COMPARISON: No previous studies available for comparison. INDICATIONS : Increased BUN/Creatnine. MEDICAL HISTORY : Congestive heart failure. Hypertension. Gastroesophageal reflux disease. Hearing loss. Dementia. Diab etes. MRSA. SURGICAL HISTORY : Coronary artery stent. Left elbow surgery. ENCOUNTER: Initial ACUITY: 1 day PAIN SCORE: Nonresponsive. LOCATION: Bilateral flank MEASUREMENTS: RIGHT KIDNEY: 10.7 x 4.0 x 5.4 cm LEFT KIDNEY: 11.7 x 4.1 x 5.6 cm FINDINGS: 1.1 x 1.2 x 1.1 cm simple cyst upper pole right kidney. 5 mm nonobstructing mid pole calculus. There is mild increased echotexture of the renal parenchyma. There is no hydronephrosis. Large left pleural effusion. 2.6 x 2.4 x 2.4 cm left mid renal cyst, simple in appearance. 1.6 cm avulsed left midpole kidney. Mild increased echotexture of the parenchyma. Estevez catheter within the urinary bladder which is decompressed. Trace perihepatic free fluid. CONCLUSION: 1. Bilateral renal cysts and echogenic parenchyma identified consistent with medical renal disease. 2. Left pleural effusion. 3. Nonobstructing right renal calculus. 4. Trace ascites. Tommy Ardon MD on June 15, 2017 at 10:15 Board Certified Radiologist. This report was verified electronically.
[2017-06-15] MEDS: DOCUSATE SODIUM 50 MG/SENNA 8.6 MG TAB PO SCH ×2 (10:40→21:27)
[2017-06-15] MEDS: hydrALAZINE HCL 50 MG TAB PO SCH ×3 (10:42→21:26)
[2017-06-15] MEDS: INSULIN NovoLIN REGULAR SUPPLEMENTAL SCALE SQ SCH ×3 (11:15→21:00)
[2017-06-15] MEDS ORDERED: SODIUM POLYSTYRENE SULFONATE SUSP 15 GM/60 ML CUP PO ONE (14:15)
[2017-06-15] MEDS: PIPERACIL-TAZO 3.375 GM PREMIX 50 ML IV SCH ×2 (14:29→21:26)
[2017-06-15] MEDS: FUROSEMIDE 20 MG/2 ML VIAL IV PUSH SCH (17:45)
--- NOTE | 2017-06-15 20:01 | EKG ---
Date Performed: 06/15/2017 Time Performed: 05:57:40 PTAGE: 82 years EKG: Sinus rhythm POSSIBLE LEFT ATRIAL ENLARGEMENT MODERATE INTRAVENTRICULAR CONDUCTION DELAY PROLONGED QT INTERVAL AB NORMAL ECG PREVIOUS TRACING : 05/26/2017 05.23 DOCTOR: Lynne Corona Interpretating Date/Time 06/15/2017 19:58:32
--- NOTE | 2017-06-15 20:09 | MB ---
cc: MARYJO MADRID MD, HANSCY M.D. DATE OF CONSULTATION 06/15/17 REASON FOR CONSULTATION Altered mental status, congestive heart failure. HISTORY OF PRESENT ILLNESS Mr. Magallon is an 82-year-old gentleman with history of dementia, high blood pressure, congestive heart failure, coronary artery disease, diabetes mellitus, previous history of smoking and drinking, previous stent placement, followed by Dr. Madrid, admitted to the emergency room due to shortness of breath and altered mental status. As mentioned before, he has dementia. Also, congestive heart failure suspected. I was consulted for evaluation and management. The chart was reviewed. The patient was evaluated. Case discussed with nurse. Most of the information obtained from medical record. ALLERGIES MDRO. SOCIAL HISTORY The patient used to smoke and drink. FAMILY HISTORY Noncontributory to his current medical condition. MEDICATIONS 1. Aspirin. 2. Ambien. 3. Ultram. 4. Senna. 5. Plavix. 6. Lipitor. 7. Metoprolol. 8. Trazodone. 9. Nitroglycerin. 10. Januvia. During hospitalization baby aspirin, tazobactam was added as well as vancomycin, amylodapine, Lasix. REVIEW OF SYSTEMS The patient is poor historian. PHYSICAL EXAMINATION GENERAL: Obtunded, but the patient began to open his eye and follow command, in bed. VITAL SIGNS: Blood pressure 141/80, pulse 58, respiratory rate around 20. LUNGS: Ventilated. No rale, no crackle. No wheezing. CARDIOVASCULAR: S1-S2, regular. No gallop. No murmur heard. ABDOMEN: Soft. No mass. EXTREMITIES: With no edema. CARDIOLOGY STUDIES Electrocardiogram shows sinus rhythm, diffuse ST and T-wave changes. LABORATORY DATA Hemoglobin 12.1, white blood cell 10.2, potassium was 6.0 on hospitalization, creatinine is 1.13. BNP is over 4300. ASSESSMENT AND RECOMMENDATIONS Mr. Magallon's condition is improving. He is more responsive. He has heart failure. IV Lasix given. Patient urine output increased. No rale, no wheezing. Also, the patient may have pneumonia and sepsis. IV antibiotics initiated. At this point my recommendation is continue with current management. Potassium needs to be corrected. Further management in the morning by Dr. Madrid. I will follow him until tomorrow a.m. I agree with current management. MD KEV Valdes /5:31 PM /7:54 PM
[2017-06-15] MEDS: ATORVASTATIN 10 MG TAB PO SCH (21:26)
[2017-06-15] MEDS: traZODone HCL 100 MG TAB PO SCH (21:27)
[2017-06-16] VITALS (8 sets, daily range): BP systolic 129–181; BP diastolic 70–97; PULSE 54–105; RESP 16–17; TEMP 95.8–97.8; O2SAT 96–100
[2017-06-16] MEDS: PIPERACIL-TAZO 3.375 GM PREMIX 50 ML IV SCH ×4 (01:06→22:07)
[2017-06-16] MEDS: hydrALAZINE HCL 50 MG TAB PO SCH ×4 (06:00→22:07)
[2017-06-16] MEDS: INSULIN NovoLIN REGULAR SUPPLEMENTAL SCALE SQ SCH ×4 (06:05→21:00)
[2017-06-16 06:37] LABS: AUTOMATED NEUTROPHIL # 8.8 TH/MM3 (1.8-7.7); BASOPHIL # 0.1 TH/MM3 (0-0.2); BASOPHIL % 0.7 % (0.0-2.0); EOSINOPHIL # 0.5 TH/MM3 (0-0.4); EOSINOPHIL % 4.5 % (0.0-4.0); HEMATOCRIT 37.8 % (39.0-51.0); HEMO FLAGS DIFF FINAL; LYMPH % 8.7 % (9.0-44.0); MEAN CELL VOLUME 88.3 FL (80.0-100.0); MEAN CORPUSCULAR HEMOGLOBIN 28.4 PG (27.0-34.0); MEAN CORPUSCULAR HGB CONC 32.1 % (32.0-36.0); MONO % 8.5 % (0.0-8.0); NEUT % 77.6 % (16.0-70.0); PLATELET COUNT 184 TH/MM3 (150-450); RED BLOOD COUNT 4.29 MIL/MM3 (4.50-5.90); RED CELL DISTRIBUTION WIDTH 13.9 % (11.6-17.2); WHITE BLOOD COUNT 11.4 TH/MM3 (4.0-11.0)
[2017-06-16 07:14] LABS: BICARBONATE 27.8 MEQ/L (21.0-32.0); POTASSIUM 3.6 MEQ/L (3.5-5.1)
[2017-06-16] MEDS: CLOPIDOGREL 75 MG TAB PO SCH (09:00)
[2017-06-16] MEDS: METOPROLOL TARTRATE 50 MG TAB PO SCH ×2 (09:00→22:08)
[2017-06-16] MEDS: amLODIPine BESYLATE 5 MG TAB PO SCH (09:00)
[2017-06-16] MEDS: SODIUM CHLORIDE 0.9% FLUSH 10 ML FLUSH IV FLUSH SCH ×2 (09:00→22:08)
[2017-06-16] MEDS: ASPIRIN 325 MG TAB PO SCH (09:00)
[2017-06-16] MEDS: DOCUSATE SODIUM 50 MG/SENNA 8.6 MG TAB PO SCH ×2 (09:00→22:07)
[2017-06-16] MEDS: PANTOPRAZOLE SOD 20 MG DELAYED RELEASE TAB PO SCH (09:00)
--- NOTE | 2017-06-16 09:06 | PD.CARD.PN ---
Subjective Subjective Remarks Lethargic, arousable, confused. Objective Medications Current Medications Medications (Trade) Dose Ordered Sig/Kevon Route Start Time Stop Time Status Last Admin Nicardipine HCl 25 mg/Sodium Chloride 260 ml @ 52 mls/hr TITRATE PRN IV 06/15/17 06:45 (NS Flush) 2 ml UNSCH PRN IV FLUSH 06/15/17 07:45 (NS Flush) 2 ml BID IV FLUSH 06/15/17 09:00 06/15/17 21:00 (Zofran Inj) 4 mg Q6H PRN IVP 06/15/17 07:45 (Narcan Inj) 0.4 mg UNSCH PRN IV 06/15/17 07:45 (Shanell-Colace) 1 tab BID PO 06/15/17 09:00 06/15/17 21:27 (Milk Of Magnesia Liq) 30 ml Q12H PRN PO 06/15/17 07:45 (Senokot) 17.2 mg Q12H PRN PO 06/15/17 07:45 (Dulcolax Supp) 10 mg DAILY PRN RECTAL 06/15/17 07:45 (Lactulose Liq) 30 ml DAILY PRN PO 06/15/17 07:45 (NovoLIN R SUPPLEMENTAL SCALE) 1 ACHS SLIDING SCALE SQ 06/15/17 11:00 06/15/17 21:00 Piperacillin Sod/ Tazobactam Sod 50 ml @ 100 mls/hr Q6H IV 06/15/17 14:00 06/16/17 01:06 (Aspirin) 325 mg DAILY PO 06/15/17 09:00 06/15/17 09:00 (Lipitor) 10 mg HS PO 06/15/17 21:00 06/15/17 21:26 (Plavix) 75 mg DAILY PO 06/15/17 09:00 06/15/17 09:00 (Lopressor) 50 mg BID PO 06/15/17 09:00 06/15/17 21:27 (Ultram) 50 mg Q6H PRN PO 06/15/17 07:45 (Protonix) 20 mg DAILY PO 06/15/17 09:00 06/15/17 08:59 (Desyrel) 200 mg HS PO 06/15/17 21:00 06/15/17 21:27 (Norvasc) 5 mg DAILY PO 06/16/17 09:00 (Apresoline) 50 mg Q8HR PO 06/15/17 10:00 06/15/17 21:26 (Lasix Inj) 20 mg BID@09,18 IV PUSH 06/15/17 18:00 06/15/17 17:45 Vital Signs / I&O Vital Signs Date Time Temp Pulse Resp B/P (MAP) Pulse Ox O2 Delivery O2 Flow Rate FiO2 06/16/17 08:00 96.9 60 17 173/76 (108) 100 06/16/17 04:00 96.8 70 17 129/74 (92) 98 06/16/17 00:00 97.0 72 17 130/70 (90) 98 06/15/17 23:45 Nasal Cannula 1.00 06/15/17 22:00 73 06/15/17 20:00 96.9 71 17 160/74 (102) 97 06/15/17 17:12 98 Nasal Cannula 1.00 06/15/17 16:00 96.7 64 16 160/74 (102) 97 06/15/17 13:49 06/15/17 12:30 58 141/80 (100) 98 Nasal Cannula 1.00 06/15/17 12:00 94.0 52 16 182/81 (114) 97 06/15/17 11:30 96.4 54 17 167/77 (107) 97 Nasal Cannula 1.00 06/15/17 10:30 96.1 52 18 196/95 (128) 96 Nasal Cannula 1.00 06/15/17 09:30 96.1 54 17 172/81 (111) 97 Nasal Cannula I/O 06/15/17 06/15/17 06/15/17 06/16/17 06/16/17 06/16/17 06:59 14:59 22:59 06:59 14:59 22:59 Intake Total 290 ml 110 ml 120 ml Output Total 1075 ml 400 ml Balance -785 ml -290 ml 120 ml Intake Oral 240 ml 0 ml 120 ml IV Total 50 ml 110 ml Output Urine Total 1075 ml 400 ml Physical Exam GENERAL: Well-nourished, well-developed patient. SKIN: Warm and damp. HEAD: Normocephalic. EYES: No scleral icterus. No injection or drainage. NECK: Supple, trachea midline. No JVD or lymphadenopathy. CARDIOVASCULAR: Regular rate and rhythm with 2/6 systolic ejection murmur heard best at the right sternal border. RESPIRATORY: Lungs diminished with scattered rhonchi and rare wheeze. Bibasilar crackles. GASTROINTESTINAL: Abdomen soft, non-tender, nondistended. EXTREMITIES: No cyanosis, 1+ dependent edema. NEUROLOGICAL: Lethargic, arousable, confused. Laboratory Laboratory Tests Test 06/15/17 09:39 06/15/17 09:50 06/15/17 20:35 06/16/17 05:59 B-Type Natriuretic Peptide 4350 PG/ML Blood Gas Puncture Site RT BRACHIAL Blood Gas Patient Temperature 98.6 Blood Gas HCO3 25 mmol/L Blood Gas Base Excess 0.9 mmol/L Blood Gas Oxygen Saturation 90 % Arterial Blood pH 7.40 Arterial Blood Partial Pressure CO2 42 mmHg Arterial Blood Partial Pressure O2 66 mmHG Arterial Blood Oxygen Content 14.5 Vol % Arterial Blood Carboxyhemoglobin 1.8 % Arterial Blood Methemoglobin 0.5 % Blood Gas Hemoglobin 11.4 G/DL Oxygen Delivery Device RA Potassium Level 5.0 MEQ/L 3.6 MEQ/L White Blood Count 11.4 TH/MM3 Red Blood Count 4.29 MIL/MM3 Hemoglobin 12.2 GM/DL Hematocrit 37.8 % Mean Corpuscular Volume 88.3 FL Mean Corpuscular Hemoglobin 28.4 PG Mean Corpuscular Hemoglobin Concent 32.1 % Red Cell Distribution Width 13.9 % Platelet Count 184 TH/MM3 Mean Platelet Volume 6.8 FL Neutrophils (%) (Auto) 77.6 % Lymphocytes (%) (Auto) 8.7 % Monocytes (%) (Auto) 8.5 % Eosinophils (%) (Auto) 4.5 % Basophils (%) (Auto) 0.7 % Neutrophils # (Auto) 8.8 TH/MM3 Lymphocytes # (Auto) 1.0 TH/MM3 Monocytes # (Auto) 1.0 TH/MM3 Eosinophils # (Auto) 0.5 TH/MM3 Basophils # (Auto) 0.1 TH/MM3 CBC Comment DIFF FINAL Differential Comment Blood Urea Nitrogen 21 MG/DL Creatinine 1.16 MG/DL Random Glucose 111 MG/DL Calcium Level 8.1 MG/DL Sodium Level 136 MEQ/L Chloride Level 99 MEQ/L Carbon Dioxide Level 27.8 MEQ/L Anion Gap 9 MEQ/L Estimat Glomerular Filtration Rate 60 ML/MIN Imaging Last Impressions Chest X-Ray 06/15/17 0755 Signed Impressions: Service Date/Time: Thursday, June 15, 2017 08:17 - CONCLUSION: Worsening appearance of the chest. Tommy Ardon MD Renal Ultrasound 06/15/17 0000 Signed Impressions: Service Date/Time: Thursday, June 15, 2017 09:36 - CONCLUSION: 1. Bilateral renal cysts and echogenic parenchyma identified consistent with medical renal disease. 2. Left pleural effusion. 3. Nonobstructing right renal calculus. 4. Trace ascites. Tommy Ardon MD Head CT 06/15/17 0000 Signed Impressions: Service Date/Time: Thursday, June 15, 2017 05:44 - CONCLUSION: No bleed or other acute intracranial abnormality. Eder Vásquez MD Assessment and Plan Problem List: (1) Acute exacerbation of CHF (congestive heart failure) ICD Codes: I50.9 - Heart failure, unspecified Status: Acute Plan: Chest x-ray shows worsening pulmonary edema. Patient on IV Lasix twice a day, diuresis well. 2-D echocardiogram done May 2017 shows ejection fraction of 35-40%. His medications include calcium channel jef and metoprolol. As the patient has both systolic heart failure and diabetes mellitus, would consider addition of ACEI if tolerated by blood pressure. Dr. Tidwell to resume care in a.m. Assessment and plan discussed with Dr. Corona. (2) Altered mental status ICD Codes: R41.82 - Altered mental status, unspecified Status: Acute Plan: Remains confused, lethargic, unable to provide any history at this evaluation. Problem Qualifiers (1) Acute exacerbation of CHF (congestive heart failure): Qualified Codes: I50.23 - Acute on chronic systolic (congestive) heart failure (2) Altered mental status: Qualified Codes: R40.0 - Somnolence Indu Mota Jun 16, 2017 09:06
[2017-06-16] MEDS: FUROSEMIDE 20 MG/2 ML VIAL IV PUSH SCH (10:29)
[2017-06-16] MEDS ORDERED: POTASSIUM CHLORIDE 10 MEQ CONTROLLED RELEASE TAB PO ONE (11:15)
--- NOTE | 2017-06-16 17:39 | HHI.PR ---
Subjective Remarks Patient seen this afternoon around 2 PM. Patient is confused sitting up, not answering questions. Systolic blood pressure in the 140s, however upon lying down with legs elevated, is able to answer simple questions, make eye contact. No focal signs.denies pain. Objective Vital Signs Date Time Temp Pulse Resp B/P (MAP) Pulse Ox O2 Delivery O2 Flow Rate FiO2 06/16/17 16:00 97.8 105 16 141/97 (112) 99 06/16/17 13:54 98 Nasal Cannula 1.00 06/16/17 12:00 96.9 54 17 181/81 (114) 99 06/16/17 08:00 96.9 60 17 173/76 (108) 100 06/16/17 04:00 96.8 70 17 129/74 (92) 98 06/16/17 00:00 97.0 72 17 130/70 (90) 98 06/15/17 23:45 Nasal Cannula 1.00 06/15/17 22:00 73 06/15/17 20:00 96.9 71 17 160/74 (102) 97 I/O 06/15/17 06/15/17 06/15/17 06/16/17 06/16/17 06/16/17 06:59 14:59 22:59 06:59 14:59 22:59 Intake Total 290 ml 110 ml 120 ml Output Total 1075 ml 400 ml Balance -785 ml -290 ml 120 ml Intake Oral 240 ml 0 ml 120 ml IV Total 50 ml 110 ml Output Urine Total 1075 ml 400 ml Result Diagram: 06/16/17 0559 06/16/17 0559 Imaging Last Impressions Chest X-Ray 06/15/17 0755 Signed Impressions: Service Date/Time: Thursday, June 15, 2017 08:17 - CONCLUSION: Worsening appearance of the chest. Tommy Ardon MD Renal Ultrasound 06/15/17 0000 Signed Impressions: Service Date/Time: Thursday, June 15, 2017 09:36 - CONCLUSION: 1. Bilateral renal cysts and echogenic parenchyma identified consistent with medical renal disease. 2. Left pleural effusion. 3. Nonobstructing right renal calculus. 4. Trace ascites. Tommy Ardon MD Head CT 06/15/17 0000 Signed Impressions: Service Date/Time: Thursday, June 15, 2017 05:44 - CONCLUSION: No bleed or other acute intracranial abnormality. Eder Vásquez MD Objective Remarks GENERAL: Patient sitting up in bed confused, nonverbal. Patient becomes verbal , however still with confusion upon lying down. Denies pain. SKIN: Warm and dry. HEAD: Normocephalic. EYES: No scleral icterus. No injection or drainage. NECK: Supple, trachea midline. No JVD or lymphadenopathy. CARDIOVASCULAR: Regular rate and rhythm without murmurs, gallops, or rubs. RESPIRATORY: Breath sounds equal bilaterally. No accessory muscle use. GASTROINTESTINAL: Abdomen soft, non-tender, nondistended. MUSCULOSKELETAL: No cyanosis, or edema. BACK: Nontender without obvious deformity. No CVA tenderness. A/P Assessment and Plan == 06/16/17. -Patient with confusion sitting up, improves lying down. Had a bed flat. Suspicion for carotid stenosis. Difficult situation with suspected carotid/ intracranial stenosis in the setting of aortic stenosis. We should have low blood pressure for aortic stenosis, however high blood pressure for suspected carotid stenosis. Ultrasound carotids ordered. Neurology consultation ordered. Discussed with at bedside, who is amenable to discussion with palliative care. -Swallow currently questionable. Appears to be protecting airway. We'll assess swallow after evaluated by neurology Appears euvolemic at this time. Stop Lasix. Avoid fluid overload in the setting of aortic stenosis. //Acute Encephalopathy //History of dementia. -CT head with no acute findings. -Likely secondary to acute UTI versus CHF. -ABG, BNP ordered and pending. //UTI. -Urinalysis with 167 white blood cell. -Continue Broad-spectrum antibiotics. Follow-up urine cultures. -Ultrasound kidneys with kidney stone, no hydronephrosis = 06/16. Noticed that urine culture had not been performed. Ordered. //Hypokalemia. Potassium 6.1 on admission. -Likely secondary to hemolysis dehydration. -Furosemide given. -Repeat ordered and pending. = Resolved after replacement. Continue to monitor and replace as necessary //Coronary artery disease //Accelerated Hypertension admission. //Severe aortic stenosis //Pulmonary hypertension. -High blood pressure systolics in the 220s on admission. -Initially on nicardipine drip. -Chest x-ray reviewed with worsening pulmonary edema. -We'll start on amlodipine, hydralazine for afterload reduction the setting of severe aortic stenosis. Continue to monitor blood pressure adjust medications as necessary. -Continue home medications. Adjust medications as necessary -06/16. Patient not tolerating by mouth medications. Stop Lasix due to euvolemic. Will hold for now. //Diabetes mellitus. Chronic. -Diabetic diet. Insulin sliding scale. Continue to monitor blood sugars //Hyponatremia. Sodium 132 on admission. Repeat labs ordered and pending. //GERD. Chronic. Continue PPI. //Lipidemia. Chronic. Continue statin. //Insomnia. Hold Ambien due to altered mental status. //DVT prophylaxis. SCDs. Heparin subcutaneous. Discharge Planning palliative care ordered. Brett Harper MD Jun 16, 2017 17:39
[2017-06-16] MEDS: traZODone HCL 100 MG TAB PO SCH (22:08)
[2017-06-16] MEDS: ATORVASTATIN 10 MG TAB PO SCH (22:08)
[2017-06-17] VITALS (7 sets, daily range): BP systolic 114–182; BP diastolic 56–87; PULSE 62–89; RESP 17–20; TEMP 95.6–98.7; O2SAT 95–99
[2017-06-17] MEDS: PIPERACIL-TAZO 3.375 GM PREMIX 50 ML IV SCH ×4 (01:03→21:10)
[2017-06-17] MEDS: hydrALAZINE HCL 50 MG TAB PO SCH ×3 (05:06→21:11)
--- NOTE | 2017-06-17 05:23 | MB ---
cc: MATTEO FORREST DATE OF CONSULTATION 06/16/2017 REASON FOR CONSULTATION Altered mental status, "slurred speech", confusion on sitting up. Improved with head of bed flat. Carotid ultrasound pending. HISTORY OF PRESENT ILLNESS Mr. Magallon is an 82-year-old male with past medical history of diabetes, congestive heart failure, coronary artery disease, severe aortic stenosis who presented to [facility] with altered mental status. The patient is a poor historian thus medical history is obtained from registered nurse and medical records. The patient was noted to be more aware and alert when head of bed is flat rather than when he is sitting up, becomes confused. In the emergency room a CT scan revealed no acute intracranial event. Urinalysis with leukocytosis. X-ray of the chest revealed pulmonary edema and urinalysis with white blood cell clumps. REVIEW OF SYSTEMS At 12-point review of systems is negative except for what is stated in the HPI. PAST MEDICAL HISTORY 1. Coronary artery disease with severe aortic stenosis. 2. Pulmonary hypertension. 3. Congestive heart failure. 4. Diabetes mellitus. 5. Hypertension. 6. Gastroesophageal reflux disease. 7. Depression. 8. Insomnia PAST SURGICAL HISTORY 1. Recent PCI to second OM and right PDA. 2. PCI two years ago. MEDICATIONS 1. Aspirin. 2. Ambien. 3. Ultram. 4. Senna. 5. Plavix. 6. Lipitor. ALLERGIES MEDROL. FAMILY HISTORY Non-contributory. SOCIAL HISTORY Lives at [facility]. No reported tobacco, alcohol or drug abuse. PHYSICAL EXAMINATION GENERAL: The patient is sleepy, easily arousable, not in apparent distress. He is pleasantly demented at baseline. HEENT: Atraumatic, normocephalic. Intact hearing. Intact vision. NECK: Trachea in the midline. Supple. No signs of meningeal irritation. RESPIRATORY: Clear to auscultation. No wheezes. CARDIOVASCULAR: Regular rate and rhythm. GASTROINTESTINAL: Abdomen soft, nontender. MUSCULOSKELETAL: Without clubbing, cyanosis or edema. NEUROLOGICAL: Awake and alert, oriented to person, place (2016, aware of the date of and place, hospital). Cranial nerves grossly intact , II-XII are grossly intact. Motor examination 5/5 with a lot of give-way. No abnormal movements. Normal tone. Sensation is intact bilaterally symmetrical. [id number] is intact. No dysarthria. The patient was examined both in the sitting and laying position with no change in her level of consciousness. LABORATORY DATA White blood cells 11.4, hemoglobin 12.2, platelets 184. Sodium 136, potassium 3.6, anion gap 9, BUN 21, creatinine 1.16, calcium 8.1, BNP 4350, INR 1.1. UDS negative. Urine positive for haziness, elevated white blood cells in urine. IMAGING STUDIES - Head CT scan without contrast - no acute intracranial abnormality. DIAGNOSTIC IMPRESSION 1. Encephalopathy, resolving. 2. Severe dementia. 3. Urinary tract infection. 4. Hypokalemia. 5. Coronary artery disease. 6. Pulmonary hypertension. 7. Severe aortic stenosis. PLAN 1. Neuro checks q. 4 hours. 2. Continue supportive medical therapy. 3. RN states that the attending physician consulted palliative care and the patient's daughter is agreeable with that. 4. Continue supportive medical therapy. 5. Carotid ultrasound. 6. Fall precautions. 7. PT/OT recommendations are appreciated. 8. Speech therapy recommendations are appreciated. Thank you for the opportunity to participate in the care of the patient. MD CESARIO Rodgers/FRANCESCO /10:57 PM /4:58 AM [email or web address]
[2017-06-17] MEDS: INSULIN NovoLIN REGULAR SUPPLEMENTAL SCALE SQ SCH ×4 (06:14→21:00)
[2017-06-17 07:18] LABS: AUTOMATED NEUTROPHIL # 6.3 TH/MM3 (1.8-7.7); BASOPHIL % 0.6 % (0.0-2.0); EOSINOPHIL # 0.3 TH/MM3 (0-0.4); EOSINOPHIL % 4.1 % (0.0-4.0); HEMATOCRIT 37.3 % (39.0-51.0); HEMO FLAGS DIFF FINAL; LYMPH % 10.2 % (9.0-44.0); LYMPHOCYTE # 0.8 TH/MM3 (1.0-4.8); MEAN CELL VOLUME 88.9 FL (80.0-100.0); MEAN CORPUSCULAR HEMOGLOBIN 28.6 PG (27.0-34.0); MEAN CORPUSCULAR HGB CONC 32.1 % (32.0-36.0); MONO % 7.6 % (0.0-8.0); NEUT % 77.5 % (16.0-70.0); PLATELET COUNT 121 TH/MM3 (150-450); RED BLOOD COUNT 4.19 MIL/MM3 (4.50-5.90); WHITE BLOOD COUNT 8.1 TH/MM3 (4.0-11.0)
[2017-06-17 07:55] LABS: BICARBONATE 27.8 MEQ/L (21.0-32.0); MAGNESIUM 1.9 MG/DL (1.5-2.5)
[2017-06-17 08:01] LABS: POTASSIUM 3.6 MEQ/L (3.5-5.1)
[2017-06-17] MEDS: CLOPIDOGREL 75 MG TAB PO SCH (08:09)
[2017-06-17] MEDS: METOPROLOL TARTRATE 50 MG TAB PO SCH ×2 (08:09→21:11)
[2017-06-17] MEDS: DOCUSATE SODIUM 50 MG/SENNA 8.6 MG TAB PO SCH ×2 (08:09→21:11)
[2017-06-17] MEDS: amLODIPine BESYLATE 5 MG TAB PO SCH (08:09)
[2017-06-17] MEDS: ASPIRIN 325 MG TAB PO SCH (08:09)
[2017-06-17] MEDS: SODIUM CHLORIDE 0.9% FLUSH 10 ML FLUSH IV FLUSH SCH ×2 (08:10→21:10)
[2017-06-17] MEDS: PANTOPRAZOLE SOD 20 MG DELAYED RELEASE TAB PO SCH (08:10)
--- NOTE | 2017-06-17 10:51 | PD.CONS ---
Consult Service Palliative Care Consult Requested By Dr. Harper. . Primary Care Physician Unknown . Reason for Consultation a. To assist with evaluation and management of symptoms including: confusion , debility b. To assist medical decision maker(s) with: better understanding of current medical conditions; weighing benefits/burdens of medical treatment options; making medical treatment decisions. . HPI History of Present Illness The patient is a 82 year old male who presented to the ED on for altered mental status and decreased level of consciousness from a SNF. The patient has a past medical history significant for dementia and at baseline is confused but responsive. Patient's daughter reports that he had not been well for several days with increased confusion and garbled speech, she also states he has displayed these symptoms in the past when he had a UTI and she had requested a urinalysis to be completed days ago at the facility in which he currently resides. ED workup included: BNP:4350. U/A positive for leukocyte esterase, WBC, and bacteria. CT brain: no acute evidence of intracranial hemorrhage. CXR: pulmonary edema. Patient was recently admitted in May for generalized weakness, during this time he was evaluated for severe aortic stenosis and received a full work up to determine if he was a candidate for a TAVR. On 05/25/17 he had a heart catheterization and had a bare metal stent placed to the distal LAD. The patient was then discharged to a SNF, at time of discharge the patient's daughter had decided collectively with her siblings that they would not like to proceed with the TAVR and instead have their father's medical care be managed in a supportive manner. Patient was seen and examined in room, appears to be resting comfortably. He arouses to verbal stimuli, able to recall his name and was able to acknowledge that he was in a health care facility. Patient alert, awake, and pleasant, has some mild confusion. Patient states "he does not want any surgery" and wants to go home. Denies any pain, shortness of breath, nausea or vomiting. Dual visit with RUBEN Adorno. Palliative care consulted to assist with symptom management and to discuss the benefits and burdens of the patient's current illness, options regarding future care, and clarification of goals. . Function/Cognitive Trajectory Patient is a recent , per daughter he lost his in January of last year. His daughter states that he has had a progressive decline since her and his decline has accelerated even more within the past 11 months. He was living at home with his daughter prior to his May admission, he was able to ambulate at home with a walker and was independent with some ADLs. After his admission in May he was discharged to SNF where he has required more assistance with ADLs and is adequately care for himself, requiring assistance with bathing and eating. Review of Systems ROS Limitations: Poor Historian Constitutional: COMPLAINS OF: Fatigue, Dizziness, Generalized weakness Eyes: COMPLAINS OF: Blurred vision Respiratory: COMPLAINS OF: Shortness of breath Musculoskeletal: COMPLAINS OF: Joint pain, Decreased range of motion Neurologic: COMPLAINS OF: Poor Balance Psychiatric: COMPLAINS OF: Confusion Past Family Social History Coded Allergies: *MDRO Multi-Drug Resistant Organism (Verified Adverse Reaction, Unknown, ) MRSA PCR + 05/19/2017 Past Medical History Coronary artery disease Severe aortic stenosis Moderate to severe pulmonary hypertension CHF Diabetes mellitus Hypertension GERD Depression Insomnia. Past Surgical History Recent PCI to second OM and right PDA May 2017 Also with PCI 2 years ago. . Reported Medications Aspirin 325 Mg Tab 325 Mg PO DAILY Ambien (Zolpidem Tartrate) 5 Mg Tab 5 Mg PO HS PRN Senna Plus 8.6-50 mg (Sennosides-Docusate Sodium) 1 Tab Tab 1 Tab PO BID 30 Days Plavix (Clopidogrel Bisulfate) 75 Mg Tab 75 Mg PO DAILY 30 Days Lipitor (Atorvastatin Calcium) 10 Mg Tab 10 Mg PO HS Xanax (Alprazolam) 0.25 Mg Tab 0.25 Mg PO DAILY PRN Metoprolol Tartrate 50 Mg Tab 50 Mg PO BID Trazodone (Trazodone HCl) 100 Mg Tablet 200 Mg PO HS Nitroglycerin SL (Nitroglycerin) 0.4 Mg Subl 0.4 Mg SL DIRECTED PRN Januvia (Sitagliptin Phosphate) 100 Mg Tab 100 Mg PO DAILY Omeprazole 20 Mg Tab 20 Mg PO DAILY . Current Medications Medications (Trade) Dose Ordered Sig/Kevon Route Start Time Stop Time Status Last Admin Nicardipine HCl 25 mg/Sodium Chloride 260 ml @ 52 mls/hr TITRATE PRN IV 06/15/17 06:45 (NS Flush) 2 ml UNSCH PRN IV FLUSH 06/15/17 07:45 (NS Flush) 2 ml BID IV FLUSH 06/15/17 09:00 06/17/17 08:10 (Zofran Inj) 4 mg Q6H PRN IVP 06/15/17 07:45 (Narcan Inj) 0.4 mg UNSCH PRN IV 06/15/17 07:45 (Shanell-Colace) 1 tab BID PO 06/15/17 09:00 06/17/17 08:09 (Milk Of Magnesia Liq) 30 ml Q12H PRN PO 06/15/17 07:45 (Senokot) 17.2 mg Q12H PRN PO 06/15/17 07:45 (Dulcolax Supp) 10 mg DAILY PRN RECTAL 06/15/17 07:45 (Lactulose Liq) 30 ml DAILY PRN PO 06/15/17 07:45 (NovoLIN R SUPPLEMENTAL SCALE) 1 ACHS SLIDING SCALE SQ 06/15/17 11:00 06/15/17 21:00 Piperacillin Sod/ Tazobactam Sod 50 ml @ 100 mls/hr Q6H IV 06/15/17 14:00 06/17/17 08:09 (Aspirin) 325 mg DAILY PO 06/15/17 09:00 06/17/17 08:09 (Lipitor) 10 mg HS PO 06/15/17 21:00 06/16/17 22:08 (Plavix) 75 mg DAILY PO 06/15/17 09:00 06/17/17 08:09 (Lopressor) 50 mg BID PO 06/15/17 09:00 06/17/17 08:09 (Ultram) 50 mg Q6H PRN PO 06/15/17 07:45 (Protonix) 20 mg DAILY PO 06/15/17 09:00 06/17/17 08:10 (Desyrel) 200 mg HS PO 06/15/17 21:00 06/16/17 22:08 (Norvasc) 5 mg DAILY PO 06/16/17 09:00 06/17/17 08:09 (Apresoline) 50 mg Q8HR PO 06/15/17 10:00 06/17/17 05:06 . Family History No family history of dementia reported. . Substance Use Tobacco: Former smoker, smoked for approximately 50 years, quit 20 years ago. Alcohol: Former. Prescription med abuse: None reported. Illicits: None reported. , Psychosocial History Patient was born and raised in [facility]. 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 Patient was currently admitted from SNF, he was admitted in early May of this year with generalized weakness. Prior to that hospitalization he lived at home with his daughter. He was not driving prior to that admission and was using a walker to ambulate. It has been reported that he has had multiple falls within the last year. . Spiritual/Cultural Factors Yazidi. Does not actively practice. Line Tester offered but he declined. . Health Care Surrogate(s): Patient's daughter Maryse states she has POA paperwork at home but is unsure if it includes any designation of HCS. She states she will bring in the paperwork tomorrow to clarify the contents of the document. If the document does not designate her as the HCS, per [place] statutes health care decision making would fall to the patient's four children. Family/friends goals: Patient's daughter, Maryse, in agreement with her sailings and per her father' s stated wishes when he was cognizant, do not desire aggressive goals of care and do not wish for him to undergo any type of surgery. Ethical and Legal Issues None known. Physical Exam Vital Signs Date Time Temp Pulse Resp B/P (MAP) Pulse Ox O2 Delivery O2 Flow Rate FiO2 06/17/17 08:00 98.7 74 19 182/87 (118) 97 06/17/17 04:00 96.8 71 17 149/79 (102) 98 06/17/17 00:00 95.6 89 17 128/81 (97) 99 06/16/17 22:00 81 06/16/17 20:00 95.8 98 17 159/90 (113) 96 06/16/17 16:00 97.8 105 16 141/97 (112) 99 06/16/17 13:54 98 Nasal Cannula 1.00 06/16/17 12:00 96.9 54 17 181/81 (114) 99 . 06/17/17 06/18/17 18:59 06:59 Intake Total 120 ml Balance 120 ml Intake Oral 120 ml . Exam CONSTITUTIONAL/GENERAL: This is an elderly male patient, in no apparent distress , awake and alert, conversive, pleasantly confused. TUBES/LINES/DRAINS: PIV x1, hernandez catheter SKIN: No jaundice, rashes, or lesions. Ecchymoses on upper extremities. Pressure ulcer on right heel. Skin temperature appropriate. Not diaphoretic. HEAD: Atraumatic. Normocephalic. EYES: Pupils equal and round and reactive. Extraocular motions intact. No scleral icterus. No injection or drainage. Fundi not examined. ENT: Hard of hearing. Nose without bleeding or purulent drainage. NECK: Trachea midline. Supple, nontender. CARDIOVASCULAR: Regular rate and rhythm. Murmur. Peripheral pulses symmetric. RESPIRATORY/CHEST: Symmetric, unlabored respirations. Clear to auscultation. Breath sounds equal bilaterally. No wheezes, rales, or rhonchi. GASTROINTESTINAL: Abdomen soft, non-tender, nondistended. No guarding. Bowel sounds present. GENITOURINARY: Without palpable bladder distension. Hernandez catheter in place. MUSCULOSKELETAL: Extremities without clubbing, cyanosis, or edema. No mottling or clubbing. NEUROLOGICAL: Awake and alert. Motor and sensory grossly within normal limits. Follows commands. Oriented to self and to place. Mild confusion/disorientation. Moves all extremities. PSYCHIATRIC: No obvious anxiety/depression. no apparent hallucinations or other psychotic thought process. . Diagnostic Tests Laboratory Laboratory Tests Test 06/15/17 05:43 06/15/17 06:00 06/15/17 08:00 06/15/17 09:39 White Blood Count 10.2 TH/MM3 (4.0-11.0) Red Blood Count 4.17 MIL/MM3 (4.50-5.90) Hemoglobin 12.1 GM/DL (13.0-17.0) Bedside Hemoglobin 12.9 G/DL (12.0-17.0) Hematocrit 37.2 % (39.0-51.0) Bedside Hematocrit 38.0 % (38.0-51.0) Mean Corpuscular Volume 89.3 FL (80.0-100.0) Mean Corpuscular Hemoglobin 29.1 PG (27.0-34.0) Mean Corpuscular Hemoglobin Concent 32.6 % (32.0-36.0) Red Cell Distribution Width 13.8 % (11.6-17.2) Platelet Count 205 TH/MM3 (150-450) Mean Platelet Volume 7.3 FL (7.0-11.0) Neutrophils (%) (Auto) 78.9 % (16.0-70.0) Lymphocytes (%) (Auto) 10.7 % (9.0-44.0) Monocytes (%) (Auto) 8.2 % (0.0-8.0) Eosinophils (%) (Auto) 1.6 % (0.0-4.0) Basophils (%) (Auto) 0.6 % (0.0-2.0) Neutrophils # (Auto) 8.0 TH/MM3 (1.8-7.7) Lymphocytes # (Auto) 1.1 TH/MM3 (1.0-4.8) Monocytes # (Auto) 0.8 TH/MM3 (0-0.9) Eosinophils # (Auto) 0.2 TH/MM3 (0-0.4) Basophils # (Auto) 0.1 TH/MM3 (0-0.2) CBC Comment AUTO DIFF Differential Comment AUTO DIFF CONFIRMED Platelet Estimate NORMAL (NORMAL) Platelet Morphology Comment NORMAL (NORMAL) Acanthocytes OCC (NORMAL) Prothrombin Time 12.4 SEC (9.8-11.6) Prothromb Time International Ratio 1.1 RATIO Activated Partial Thromboplast Time 24.5 SEC (24.3-30.1) Fibrinogen 253 mg/dL (227-377) Bedside Sodium 132 MMOL/L (138-146) Blood Urea Nitrogen 26 MG/DL (7-18) Creatinine 1.13 MG/DL (0.60-1.30) Random Glucose 125 MG/DL (74-106) Calcium Level 8.5 MG/DL (8.5-10.1) Sodium Level 132 MEQ/L (136-145) Potassium Level 6.0 MEQ/L (3.5-5.1) Chloride Level 101 MEQ/L (98-107) Carbon Dioxide Level 21.7 MEQ/L (21.0-32.0) Bedside Potassium 6.1 MMOL/L (3.5-4.9) Bedside Chloride 99 MMOL/L (98-109) Anion Gap 9 MEQ/L (5-15) Bedside Blood Urea Nitrogen 35 MG/DL (8-26) Bedside Creatinine 1.2 MG/DL (0.8-1.3) Estimat Glomerular Filtration Rate 62 ML/MIN (>89) Bedside Glucose 131 MG/DL (60-95) Total Creatine Kinase 106 U/L (39-308) Troponin I 0.03 NG/ML (0.02-0.05) Urine Color YELLOW (YELLW/STRAW) Urine Turbidity HAZY (CLEAR) Urine pH 6.5 (5.0-8.5) Urine Specific Juliette 1.021 (1.002-1.035) Urine Protein 100 mg/dL (NEG-TRACE) Urine Glucose (UA) NEG mg/dL (NEG) Urine Ketones TRACE mg/dL (NEG) Urine Occult Blood SMALL (NEG) Urine Nitrite NEG (NEG) Urine Bilirubin NEG (NEG) Urine Urobilinogen LESS THAN 2.0 MG/DL (LESS Urine Leukocyte Esterase LARGE (NEG) Urine RBC 6 /hpf (0-3) Urine WBC 167 /hpf (0-5) Urine WBC Clumps RARE (NONE) Urine Bacteria RARE /hpf (NONE) Urine Mucus FEW /lpf (OCC) Urine Opiates Screen NEG (NEG) Urine Barbiturates Screen NEG (NEG) Urine Amphetamines Screen NEG (NEG) Urine Benzodiazepines Screen NEG (NEG) Urine Cocaine Screen NEG (NEG) Urine Cannabinoids Screen NEG (NEG) Lactic Acid Level 1.0 mmol/L (0.4-2.0) B-Type Natriuretic Peptide 4350 PG/ML (0-100) Test 06/15/17 09:50 06/15/17 20:35 06/16/17 05:59 06/17/17 06:01 Blood Gas Puncture Site RT BRACHIAL Blood Gas Patient Temperature 98.6 Blood Gas HCO3 25 mmol/L (22-26) Blood Gas Base Excess 0.9 mmol/L (-2-2) Blood Gas Oxygen Saturation 90 % (90-100) Arterial Blood pH 7.40 (7.380-7.420) Arterial Blood Partial Pressure CO2 42 mmHg (38-42) Arterial Blood Partial Pressure O2 66 mmHG (61-120) Arterial Blood Oxygen Content 14.5 Vol % (12.0-20.0) Arterial Blood Carboxyhemoglobin 1.8 % (0-4) Arterial Blood Methemoglobin 0.5 % (0-2) Blood Gas Hemoglobin 11.4 G/DL (12.0-16.0) Oxygen Delivery Device RA Potassium Level 5.0 MEQ/L (3.5-5.1) 3.6 MEQ/L (3.5-5.1) 3.6 MEQ/L (3.5-5.1) White Blood Count 11.4 TH/MM3 (4.0-11.0) 8.1 TH/MM3 (4.0-11.0) Red Blood Count 4.29 MIL/MM3 (4.50-5.90) 4.19 MIL/MM3 (4.50-5.90) Hemoglobin 12.2 GM/DL (13.0-17.0) 12.0 GM/DL (13.0-17.0) Hematocrit 37.8 % (39.0-51.0) 37.3 % (39.0-51.0) Mean Corpuscular Volume 88.3 FL (80.0-100.0) 88.9 FL (80.0-100.0) Mean Corpuscular Hemoglobin 28.4 PG (27.0-34.0) 28.6 PG (27.0-34.0) Mean Corpuscular Hemoglobin Concent 32.1 % (32.0-36.0) 32.1 % (32.0-36.0) Red Cell Distribution Width 13.9 % (11.6-17.2) 14.0 % (11.6-17.2) Platelet Count 184 TH/MM3 (150-450) 121 TH/MM3 (150-450) Mean Platelet Volume 6.8 FL (7.0-11.0) 7.3 FL (7.0-11.0) Neutrophils (%) (Auto) 77.6 % (16.0-70.0) 77.5 % (16.0-70.0) Lymphocytes (%) (Auto) 8.7 % (9.0-44.0) 10.2 % (9.0-44.0) Monocytes (%) (Auto) 8.5 % (0.0-8.0) 7.6 % (0.0-8.0) Eosinophils (%) (Auto) 4.5 % (0.0-4.0) 4.1 % (0.0-4.0) Basophils (%) (Auto) 0.7 % (0.0-2.0) 0.6 % (0.0-2.0) Neutrophils # (Auto) 8.8 TH/MM3 (1.8-7.7) 6.3 TH/MM3 (1.8-7.7) Lymphocytes # (Auto) 1.0 TH/MM3 (1.0-4.8) 0.8 TH/MM3 (1.0-4.8) Monocytes # (Auto) 1.0 TH/MM3 (0-0.9) 0.6 TH/MM3 (0-0.9) Eosinophils # (Auto) 0.5 TH/MM3 (0-0.4) 0.3 TH/MM3 (0-0.4) Basophils # (Auto) 0.1 TH/MM3 (0-0.2) 0.0 TH/MM3 (0-0.2) CBC Comment DIFF FINAL DIFF FINAL Differential Comment Blood Urea Nitrogen 21 MG/DL (7-18) 20 MG/DL (7-18) Creatinine 1.16 MG/DL (0.60-1.30) 1.23 MG/DL (0.60-1.30) Random Glucose 111 MG/DL (74-106) 119 MG/DL (74-106) Calcium Level 8.1 MG/DL (8.5-10.1) 8.1 MG/DL (8.5-10.1) Sodium Level 136 MEQ/L (136-145) 136 MEQ/L (136-145) Chloride Level 99 MEQ/L (98-107) 99 MEQ/L (98-107) Carbon Dioxide Level 27.8 MEQ/L (21.0-32.0) 27.8 MEQ/L (21.0-32.0) Anion Gap 9 MEQ/L (5-15) 9 MEQ/L (5-15) Estimat Glomerular Filtration Rate 60 ML/MIN (>89) 56 ML/MIN (>89) Magnesium Level 1.9 MG/DL (1.5-2.5) 1.9 MG/DL (1.5-2.5) Albumin 2.4 GM/DL (3.4-5.0) Phosphorus Level 3.0 MG/DL (2.5-4.9) . Result Diagram: 06/17/17 0601 06/17/17 0601 Microbiology Microbiology Date/Time Source Procedure Growth Status 06/15/17 08:05 Blood Peripheral Aerobic Blood Culture - Preliminary NO GROWTH IN 1 DAY Resulted 06/15/17 08:05 Blood Peripheral Anaerobic Blood Culture - Preliminary NO GROWTH IN 1 DAY Resulted 06/15/17 08:00 Blood Peripheral Aerobic Blood Culture - Preliminary NO GROWTH IN 1 DAY Resulted 06/15/17 08:00 Blood Peripheral Anaerobic Blood Culture - Preliminary NO GROWTH IN 1 DAY Resulted 06/16/17 11:00 Urine Catheterized Urine Urine Culture Pending Received . Imaging Last 72 hours Impressions Chest X-Ray 06/15/17 0755 Signed Impressions: Service Date/Time: Thursday, June 15, 2017 08:17 - CONCLUSION: Worsening appearance of the chest. Tommy Ardon MD Renal Ultrasound 06/15/17 0000 Signed Impressions: Service Date/Time: Thursday, June 15, 2017 09:36 - CONCLUSION: 1. Bilateral renal cysts and echogenic parenchyma identified consistent with medical renal disease. 2. Left pleural effusion. 3. Nonobstructing right renal calculus. 4. Trace ascites. Tommy Ardon MD Head CT 06/15/17 0000 Signed Impressions: Service Date/Time: Thursday, June 15, 2017 05:44 - CONCLUSION: No bleed or other acute intracranial abnormality. Eder Vásquez MD . Patient/Family Conference Present at Family Conference: Maryse Lindsey (daughter) Family Conference Location: Telephone Issues Discussed: * Palliative care role, purpose, approach * Additional medical, psychosocial, and spiritual history * Patients general health, functional status, and cognitive changes in the months leading up to the current hospitalization * Patient/family understanding of the current medical problems * Patient/family understanding of prognosis * Code status * Patients goals of care as best understood from conversations and/or values * Current medical treatment options and benefits/burdens of those options * Likely scenarios comparing ongoing aggressive care with a transition to comfort measures only * Questions answered to the best of my ability * Palliative care contact information provided . Assessment and Plan Disease Oriented Problem List: (1) Altered mental status (2) UTI (urinary tract infection) (3) Slurred speech Symptom Scale: (1) Confusion (2) Debility Pertinent Non-Medical Issues Psychosocial: Patient was born and raised in [place] [facility]. 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 Patient was currently admitted from SNF, he was admitted in early May of this year with generalized weakness. Prior to that hospitalization he lived at home with his daughter. He was not driving prior to that admission and was using a walker to ambulate. It has been reported that he has had multiple falls within the last year. Spiritual: Yazidi. Not currently practicing. Line Tester offered, patient declined. Legal: None known. Ethical issues impacting care: None known. . Important Contacts Maryse Lindsey (daughter): [phone] Dhaval Magallon (son): [phone] . Prognosis Patient has had a progressive decline over the past 11 months. He was living at home with his daughter prior to his May admission, he was able to ambulate at home with a walker and was independent with some ADLs. After his admission in May he was discharged to SNF where he has required more assistance with ADLs and is adequately care for himself, requiring assistance with bathing and eating. Patient is at an ongoing risk for setbacks due to advanced age and multiple comorbidities. Prognosis pending further diagnostic testing and clinical course. Code Status: No Code Plan * CODE STATUS: DNR, NO CODE * Legal decision maker: Patient's daughter Maryse states she has POA paperwork at home but is unsure if it includes any designation of HCS. She states she will bring in the paperwork tomorrow to clarify the contents of the document. If the document does not designate her as the HCS, per [place] statutes health care decision making would fall to the patient's four children. * GOALS: Goals are supportive in nature, pending family meeting tomorrow to confirm HCS/decision maker/HCP. Family meeting tomorrow at 10 am. * Symptoms: --confusion: Patient has a history of dementia. Confusion/disorientation improving slightly over hospital course. Acute confusion may be due to UTI, currently on antibiotics. Pending carotid U/S to R/O as a contributory cause to confusion. No recommendations at this time. --debility: Patient is at an ongoing risk for increased debility, current bed bound status, recent decline in ADLs over the past 11 months and requiring SNF placement. PT/OT ordered. No recommendations at this time. Thank you for the opportunity to participate in the care of Mr. Magallon. Attestation To help prompt me to consider important information that might be impacting today's encounter and assessment, information from prior notes written by myself or my colleagues may have been "brought forward" into today's note. My signature on this note, however, is an attestation that I personally performed the exam, history, and/or decision-making noted today, and, unless otherwise indicated, the interactions with patient, family, and staff as well as the review of records all occurred today. I also attest that the listed assessment and stated plan reflect my best clinical judgment today based on the combination of historical information, prior notes, and today's exam/ interactions. When time spent is documented, it refers only to time spent today by the signer, or if indicated, combined time spent today by collaborating physician/nurse practitioner. Svetlana Downey Jun 17, 2017 10:51
--- NOTE | 2017-06-17 16:46 | HHI.PR ---
Review/Management Diagnosis 1. Encephalopathy, resolving Likely secondary to infectious/metabolic etiology. 2. Dementia. 3. Urinary tract infection. 4. Hypokalemia, resolved 5. Coronary artery disease. 6. Pulmonary hypertension. 7. Severe aortic stenosis. Plan 1. Neuro checks q. 4 hours. 2. Continue supportive medical therapy. 3. Palliative care is on board 4. Daughter wants him to be at SNF 5. Carotid ultrasound result is pending. 6. Fall precautions. 7. PT/OT recommendations are appreciated. 8. Please call for questions Diagnosis/Plan: Subjective Subjective Comments No acute events reported Patient is more awake and alert Daughter at bed side, she states that she has noticed a remarkable improvement in his awareness As per daughter, patient has been with her for 9 months, she states that he is not ' officially' diagnosed with dementia, however, she states that he tends to repeat sentences and same questions and has difficulty in finding the whereabouts, she met with palliative care and will meet social work specialist for placement, preferably at SNF Active Medications Current Medications Medications (Trade) Dose Ordered Sig/Kevon Route Start Time Stop Time Status Last Admin Nicardipine HCl 25 mg/Sodium Chloride 260 ml @ 52 mls/hr TITRATE PRN IV 06/15/17 06:45 (NS Flush) 2 ml UNSCH PRN IV FLUSH 06/15/17 07:45 (NS Flush) 2 ml BID IV FLUSH 06/15/17 09:00 06/17/17 08:10 (Zofran Inj) 4 mg Q6H PRN IVP 06/15/17 07:45 (Narcan Inj) 0.4 mg UNSCH PRN IV 06/15/17 07:45 (Shanell-Colace) 1 tab BID PO 06/15/17 09:00 06/17/17 08:09 (Milk Of Magnesia Liq) 30 ml Q12H PRN PO 06/15/17 07:45 (Senokot) 17.2 mg Q12H PRN PO 06/15/17 07:45 (Dulcolax Supp) 10 mg DAILY PRN RECTAL 06/15/17 07:45 (Lactulose Liq) 30 ml DAILY PRN PO 06/15/17 07:45 (NovoLIN R SUPPLEMENTAL SCALE) 1 ACHS SLIDING SCALE SQ 06/15/17 11:00 06/15/17 21:00 Piperacillin Sod/ Tazobactam Sod 50 ml @ 100 mls/hr Q6H IV 06/15/17 14:00 06/17/17 15:36 (Aspirin) 325 mg DAILY PO 06/15/17 09:00 06/17/17 08:09 (Lipitor) 10 mg HS PO 06/15/17 21:00 06/16/17 22:08 (Plavix) 75 mg DAILY PO 06/15/17 09:00 06/17/17 08:09 (Lopressor) 50 mg BID PO 06/15/17 09:00 06/17/17 08:09 (Ultram) 50 mg Q6H PRN PO 06/15/17 07:45 (Protonix) 20 mg DAILY PO 06/15/17 09:00 06/17/17 08:10 (Desyrel) 200 mg HS PO 06/15/17 21:00 06/16/17 22:08 (Norvasc) 5 mg DAILY PO 06/16/17 09:00 06/17/17 08:09 (Apresoline) 50 mg Q8HR PO 06/15/17 10:00 06/17/17 15:36 Allergies Allergies Coded Allergies *MDRO Multi-Drug Resistant Organism (Verified Adverse Reaction, Unknown, ) Review of Systems All other ROS: ROS reviewed as documented in chart Exam I&O / VS 06/17/17 06/17/17 06/18/17 15:00 23:00 07:00 Intake Total 240 ml Balance 240 ml Intake Oral 240 ml Vital Signs Date Time Temp Pulse Resp B/P (MAP) Pulse Ox O2 Delivery O2 Flow Rate FiO2 06/17/17 12:00 98.7 62 20 174/83 (113) 97 06/17/17 08:00 98.7 74 19 182/87 (118) 97 06/17/17 04:00 96.8 71 17 149/79 (102) 98 06/17/17 00:00 95.6 89 17 128/81 (97) 99 06/16/17 22:00 81 06/16/17 20:00 95.8 98 17 159/90 (113) 96 Exam Comments GENERAL: The patient is sleepy, easily arousable, not in apparent distress, pleasantly demented at baseline. HEENT: Atraumatic, normocephalic. Intact hearing. Intact vision. NECK: Trachea in the midline. Supple. No signs of meningeal irritation. RESPIRATORY: Clear to auscultation. No wheezes. CARDIOVASCULAR: Regular rate and rhythm. GASTROINTESTINAL: Abdomen soft, nontender. MUSCULOSKELETAL: Without clubbing, cyanosis or edema. NEUROLOGICAL: Awake and alert, oriented to person, place (2016, aware of the date of and place). Cranial nerves grossly intact, II-XII are grossly intact. Motor examination 5/5 with a lot of give-way. No abnormal movements. Normal tone. Sensation is intact bilaterally symmetrical. Finger- to-nose is intact. No dysarthria. Objective Radiology Results Last 72 hours Impressions Chest X-Ray 06/15/17 0755 Signed Impressions: Service Date/Time: Thursday, June 15, 2017 08:17 - CONCLUSION: Worsening appearance of the chest. Tommy Ardon MD Renal Ultrasound 06/15/17 0000 Signed Impressions: Service Date/Time: Thursday, June 15, 2017 09:36 - CONCLUSION: 1. Bilateral renal cysts and echogenic parenchyma identified consistent with medical renal disease. 2. Left pleural effusion. 3. Nonobstructing right renal calculus. 4. Trace ascites. Tommy Ardon MD Head CT 06/15/17 0000 Signed Impressions: Service Date/Time: Thursday, June 15, 2017 05:44 - CONCLUSION: No bleed or other acute intracranial abnormality. Eder Vásquez MD Micro and Labs Laboratory Tests Test 06/17/17 06:01 White Blood Count 8.1 Red Blood Count 4.19 Hemoglobin 12.0 Hematocrit 37.3 Mean Corpuscular Volume 88.9 Mean Corpuscular Hemoglobin 28.6 Mean Corpuscular Hemoglobin Concent 32.1 Red Cell Distribution Width 14.0 Platelet Count 121 Mean Platelet Volume 7.3 Neutrophils (%) (Auto) 77.5 Lymphocytes (%) (Auto) 10.2 Monocytes (%) (Auto) 7.6 Eosinophils (%) (Auto) 4.1 Basophils (%) (Auto) 0.6 Neutrophils # (Auto) 6.3 Lymphocytes # (Auto) 0.8 Monocytes # (Auto) 0.6 Eosinophils # (Auto) 0.3 Basophils # (Auto) 0.0 CBC Comment DIFF FINAL Differential Comment Blood Urea Nitrogen 20 Creatinine 1.23 Random Glucose 119 Albumin 2.4 Calcium Level 8.1 Phosphorus Level 3.0 Magnesium Level 1.9 Sodium Level 136 Potassium Level 3.6 Chloride Level 99 Carbon Dioxide Level 27.8 Anion Gap 9 Estimat Glomerular Filtration Rate 56 Date/Time Source Procedure Growth Status 06/15/17 08:05 Blood Peripheral Aerobic Blood Culture - Preliminary NO GROWTH IN 2 DAYS Resulted 06/15/17 08:05 Blood Peripheral Anaerobic Blood Culture - Preliminary NO GROWTH IN 2 DAYS Resulted 06/16/17 11:00 Urine Catheterized Urine Urine Culture - Preliminary NO GROWTH IN 24 HOURS. Resulted Ayse Barry MD Jun 17, 2017 16:46
--- NOTE | 2017-06-17 17:42 | RADRPT ---
EXAM DATE/TIME: 06/17/2017 11:30 [facility] COMPARISON: No previous studies available for comparison. INDICATIONS : Syncope. MEDICAL HISTORY : Gastroesophageal reflux disease. Congestive heart failure. Dementia. Hypertension. Diabetes. MRSA. SURGICAL HISTORY : Coronary stent. Left elbow surgery. ENCOUNTER: Initial ACUITY: 1 day PAIN SCORE: 0/10 LOCATION: Bilateral neck. PEAK SYSTOLIC VELOCITIES (cm/sec): ICA/CCA RATIO: Right: 1.9 Left: 1.7 ICA: Right: 63 Left: 103 CCA: Right: 50 Left: 60 ECA: Right: 77 Left: 108 VERTEBRAL: Right: 52 antegrade Left: 48 antegrade Elevated flow velocities and ICA/CCA ratios have been found to correlate with increased degrees of vessel stenosis, calculated as percentage of diameter relative to a normal segment of distal ICA/CCA FINDINGS: RIGHT CAROTID: Dense calcific plaquing at the carotid bifurcation. No definite flow-limiting stenosis. LEFT CAROTID: Dense calcific plaquing at the carotid bifurcation. No definite flow-limiting stenosis. VERTEBRAL ARTERIES: Antegrade flow is seen in both vertebral arteries. MISCELLANEOUS: None. CONCLUSION: Significant atherosclerotic disease in the carotid bifurcations bilaterally without definite evidence of flow-limiting stenosis Eder Perla MD on June 17, 2017 at 17:38 Board Certified Radiologist. This report was verified electronically.
--- NOTE | 2017-06-17 19:14 | HHI.PR ---
Subjective Remarks Patient seen this morning around 11:30. Lying down. Alert, oriented to year. Denies any pain. Objective Vital Signs Date Time Temp Pulse Resp B/P (MAP) Pulse Ox O2 Delivery O2 Flow Rate FiO2 06/17/17 16:00 98.7 66 20 149/70 (96) 99 06/17/17 12:00 98.7 62 20 174/83 (113) 97 06/17/17 08:00 98.7 74 19 182/87 (118) 97 06/17/17 04:00 96.8 71 17 149/79 (102) 98 06/17/17 00:00 95.6 89 17 128/81 (97) 99 06/16/17 22:00 81 06/16/17 20:00 95.8 98 17 159/90 (113) 96 I/O 06/16/17 06/16/17 06/16/17 06/17/17 06/17/17 06/17/17 07:00 15:00 23:00 07:00 15:00 23:00 Intake Total 110 ml 120 ml 50 ml 290 ml 240 ml 1100 ml Output Total 400 ml 1800 ml 950 ml 1300 ml Balance -290 ml 120 ml -1750 ml -660 ml 240 ml -200 ml Intake Oral 0 ml 120 ml 0 ml 240 ml 240 ml 1000 ml IV Total 110 ml 50 ml 50 ml 100 ml Output Urine Total 400 ml 1800 ml 950 ml 1300 ml # Bowel Movements 0 1 Result Diagram: 06/17/1760006/17/17600 Objective Remarks GENERAL: lying in bed.Patient appears comfortable. SKIN: Warm and dry. HEAD: Normocephalic. EYES: No scleral icterus. No injection or drainage. NECK: Supple, trachea midline. No JVD. CARDIOVASCULAR: Regular rate and rhythm without murmurs, gallops, or rubs. RESPIRATORY: Breath sounds equal bilaterally. No accessory muscle use. GASTROINTESTINAL: Abdomen soft, non-tender, nondistended. MUSCULOSKELETAL: No cyanosis, or edema. BACK: Nontender without obvious deformity. No CVA tenderness. A/P Assessment and Plan == 06/17/17. -Patient continues on antibiotics for UTI. Unfortunately culture was not drawn on admission. Continue antibiotics for 1 more day, transitioned to Cipro to complete course.. -Bilateral carotid stenosis without evidence of flow limitation, however this could be blood pressure dependent. //Acute Encephalopathy //History of dementia. -CT head with no acute findings. -Likely secondary to acute UTI versus CHF. -ABG, BNP ordered and pending. //UTI. -Urinalysis with 167 white blood cell. -Continue Broad-spectrum antibiotics. Follow-up urine cultures. -Ultrasound kidneys with kidney stone, no hydronephrosis = 06/16. Noticed that urine culture had not been performed. Ordered. //Hypokalemia. Potassium 6.1 on admission. -Likely secondary to hemolysis dehydration. -Furosemide given. -Repeat ordered and pending. = Resolved after replacement. Continue to monitor and replace as necessary //Coronary artery disease //Accelerated Hypertension admission. //Severe aortic stenosis //Pulmonary hypertension. -High blood pressure systolics in the 220s on admission. -Initially on nicardipine drip. -Chest x-ray reviewed with worsening pulmonary edema. -We'll start on amlodipine, hydralazine for afterload reduction the setting of severe aortic stenosis. Continue to monitor blood pressure adjust medications as necessary. -Continue home medications. Adjust medications as necessary -06/16. Patient not tolerating by mouth medications. Stop Lasix due to euvolemic. Will hold for now. //Diabetes mellitus. Chronic. -Diabetic diet. Insulin sliding scale. Continue to monitor blood sugars //Hyponatremia. Sodium 132 on admission. Repeat labs ordered and pending. //GERD. Chronic. Continue PPI. //Lipidemia. Chronic. Continue statin. //Insomnia. Hold Ambien due to altered mental status. //DVT prophylaxis. SCDs. Heparin subcutaneous. Discharge Planning continuing antibiotics for UTI. Unfortunately cultures were not done on admission palliative care following. Appreciate assistance. Brett Harper MD Jun 17, 2017 19:14
[2017-06-17] MEDS: traZODone HCL 100 MG TAB PO SCH (21:10)
[2017-06-17] MEDS: traMADol HCL 50 MG TAB PO PRN (21:11)
[2017-06-17] MEDS: ATORVASTATIN 10 MG TAB PO SCH (21:11)
[2017-06-18] MEDS: PIPERACIL-TAZO 3.375 GM PREMIX 50 ML IV SCH ×3 (02:42→15:11)
[2017-06-18 04:06] VITALS: BP 117/71; PULSE 102; RESP 19; TEMP 96.6; O2SAT 93
[2017-06-18 04:50] LABS: BLOOD, URINE SMALL (NEG); CALCIUM OXALATE CRYSTALS,URINE FEW /hpf; COMMENT (UR) CULTURE INDICATED; CULTURE IF INDICATED CULTURE INDICATED; GLUCOSE,URINE NEG (NEG); KETONE, URINE TRACE mg/dL (NEG); NITRITE,URINE NEG (NEG); PH, URINE 5.5 (5.0-8.5); RENAL EPITHELIAL CELLS 9 /hpf; URINE COLOR YELLOW (YELLW/STRAW)
[2017-06-18] MEDS: hydrALAZINE HCL 50 MG TAB PO SCH ×3 (05:28→15:36)
[2017-06-18] MEDS: traMADol HCL 50 MG TAB PO PRN (05:29)
[2017-06-18] MEDS: INSULIN NovoLIN REGULAR SUPPLEMENTAL SCALE SQ SCH ×3 (07:00→15:13)
[2017-06-18 08:00] VITALS: BP 131/84; PULSE 104; RESP 16; TEMP 97.6; O2SAT 92
[2017-06-18] MEDS: SODIUM CHLORIDE 0.9% FLUSH 10 ML FLUSH IV FLUSH SCH (09:00)
[2017-06-18] MEDS: DOCUSATE SODIUM 50 MG/SENNA 8.6 MG TAB PO SCH (10:02)
[2017-06-18] MEDS: ASPIRIN 325 MG TAB PO SCH (10:02)
[2017-06-18] MEDS: CLOPIDOGREL 75 MG TAB PO SCH (10:02)
[2017-06-18] MEDS: PANTOPRAZOLE SOD 20 MG DELAYED RELEASE TAB PO SCH (10:02)
[2017-06-18] MEDS: METOPROLOL TARTRATE 50 MG TAB PO SCH (10:02)
[2017-06-18] MEDS: amLODIPine BESYLATE 5 MG TAB PO SCH (10:03)
[2017-06-18] MEDS ORDERED: CIPR-9 PO (10:38)
--- NOTE | 2017-06-18 11:02 | HHI.HCPN ---
Reason for visit a. To assist with evaluation and management of symptoms including: confusion , debility b. To assist medical decision maker(s) with: better understanding of current medical conditions; weighing benefits/burdens of medical treatment options; making medical treatment decisions. . Subjective/Interval History The patient is a 82 year old male who presented to the ED on for altered mental status and decreased level of consciousness from a SNF. The patient has a past medical history significant for dementia and at baseline is confused but responsive. Patient's daughter reports that he had not been well for several days with increased confusion and garbled speech, she also states he has displayed these symptoms in the past when he had a UTI and she had requested a urinalysis to be completed days ago at the facility in which he currently resides. Patient was recently admitted in May for generalized weakness, during this time he was evaluated for severe aortic stenosis and received a full work up to determine if he was a candidate for a TAVR. On he had a heart catheterization and had a bare metal stent placed to the distal LAD. The patient was then discharged to a SNF, at time of discharge the patient's daughter had decided collectively with her siblings that they would not like to proceed with the TAVR and instead have their father's medical care be managed in a supportive manner. Patient was seen and examined in room, more lethargic today than yesterday, arouse to verbal stimuli, less interactive today. Intermittent nonsensical speech. Denies any pain, shortness of breath, nausea or vomiting. Patient endorses decreased appetite, states he does not like hospital food. Palliative care consulted to assist with symptom management and to discuss the benefits and burdens of the patient's current illness, options regarding future care, and clarification of goals. . Family/friend interactions Face to face meeting with patient's daughter Mendy Serra LSW present as well. . Advance Directives Advance Directive Specifics Health Care Surrogate(s): Pending confirmation from additional children that Maryse will serve as the HCP, POC for health care decisions. Objective Vital Signs Date Time Temp Pulse Resp B/P (MAP) Pulse Ox O2 Delivery O2 Flow Rate FiO2 06/18/17 04:06 96.6 102 19 117/71 (86) 93 06/17/17 23:50 97.0 64 18 149/71 (97) 95 06/17/17 22:11 18 06/17/17 20:00 97.1 76 18 114/56 (75) 96 06/17/17 16:00 98.7 66 20 149/70 (96) 99 06/17/17 12:00 98.7 62 20 174/83 (113) 97 Intake & Output 06/18/17 06/18/17 06:59 18:59 Intake Total 240 ml Output Total 500 ml Balance -260 ml Intake Oral 240 ml Output Urine Total 500 ml # Bowel Movements 0 Physical Exam CONSTITUTIONAL/GENERAL: This is an elderly male patient, in no apparent distress , drowsy today, less interactive than yesterday. TUBES/LINES/DRAINS: PIV x1, hernandez catheter SKIN: No jaundice, rashes, or lesions. Ecchymoses on upper extremities. Pressure ulcer on right heel. Skin temperature appropriate. Not diaphoretic. EYES: Pupils equal and round and reactive. Extraocular motions intact. No scleral icterus. No injection or drainage. Fundi not examined. ENT: Hard of hearing. Nose without bleeding or purulent drainage. CARDIOVASCULAR: Regular rate and rhythm. Murmur. Peripheral pulses symmetric. RESPIRATORY/CHEST: Symmetric, unlabored respirations. Clear to auscultation. Breath sounds equal bilaterally. No wheezes, rales, or rhonchi. GASTROINTESTINAL: Abdomen soft, nondistended. Tender in LUQ. Bowel sounds present. GENITOURINARY: Without palpable bladder distension. Hernandez catheter in place. MUSCULOSKELETAL: Extremities without clubbing, cyanosis, or edema. No mottling or clubbing. NEUROLOGICAL: Drowsy. Follows commands. Oriented to self. Mild confusion/ disorientation. Moves all extremities. PSYCHIATRIC: No obvious anxiety/depression. no apparent hallucinations or other psychotic thought process. . Diagnostic Tests Laboratory Laboratory Tests Test 06/15/17 20:35 06/16/17 05:59 06/17/17 06:01 06/18/17 04:15 Potassium Level 5.0 MEQ/L (3.5-5.1) 3.6 MEQ/L (3.5-5.1) 3.6 MEQ/L (3.5-5.1) White Blood Count 11.4 TH/MM3 (4.0-11.0) 8.1 TH/MM3 (4.0-11.0) Red Blood Count 4.29 MIL/MM3 (4.50-5.90) 4.19 MIL/MM3 (4.50-5.90) Hemoglobin 12.2 GM/DL (13.0-17.0) 12.0 GM/DL (13.0-17.0) Hematocrit 37.8 % (39.0-51.0) 37.3 % (39.0-51.0) Mean Corpuscular Volume 88.3 FL (80.0-100.0) 88.9 FL (80.0-100.0) Mean Corpuscular Hemoglobin 28.4 PG (27.0-34.0) 28.6 PG (27.0-34.0) Mean Corpuscular Hemoglobin Concent 32.1 % (32.0-36.0) 32.1 % (32.0-36.0) Red Cell Distribution Width 13.9 % (11.6-17.2) 14.0 % (11.6-17.2) Platelet Count 184 TH/MM3 (150-450) 121 TH/MM3 (150-450) Mean Platelet Volume 6.8 FL (7.0-11.0) 7.3 FL (7.0-11.0) Neutrophils (%) (Auto) 77.6 % (16.0-70.0) 77.5 % (16.0-70.0) Lymphocytes (%) (Auto) 8.7 % (9.0-44.0) 10.2 % (9.0-44.0) Monocytes (%) (Auto) 8.5 % (0.0-8.0) 7.6 % (0.0-8.0) Eosinophils (%) (Auto) 4.5 % (0.0-4.0) 4.1 % (0.0-4.0) Basophils (%) (Auto) 0.7 % (0.0-2.0) 0.6 % (0.0-2.0) Neutrophils # (Auto) 8.8 TH/MM3 (1.8-7.7) 6.3 TH/MM3 (1.8-7.7) Lymphocytes # (Auto) 1.0 TH/MM3 (1.0-4.8) 0.8 TH/MM3 (1.0-4.8) Monocytes # (Auto) 1.0 TH/MM3 (0-0.9) 0.6 TH/MM3 (0-0.9) Eosinophils # (Auto) 0.5 TH/MM3 (0-0.4) 0.3 TH/MM3 (0-0.4) Basophils # (Auto) 0.1 TH/MM3 (0-0.2) 0.0 TH/MM3 (0-0.2) CBC Comment DIFF FINAL DIFF FINAL Differential Comment Blood Urea Nitrogen 21 MG/DL (7-18) 20 MG/DL (7-18) Creatinine 1.16 MG/DL (0.60-1.30) 1.23 MG/DL (0.60-1.30) Random Glucose 111 MG/DL (74-106) 119 MG/DL (74-106) Calcium Level 8.1 MG/DL (8.5-10.1) 8.1 MG/DL (8.5-10.1) Sodium Level 136 MEQ/L (136-145) 136 MEQ/L (136-145) Chloride Level 99 MEQ/L (98-107) 99 MEQ/L (98-107) Carbon Dioxide Level 27.8 MEQ/L (21.0-32.0) 27.8 MEQ/L (21.0-32.0) Anion Gap 9 MEQ/L (5-15) 9 MEQ/L (5-15) Estimat Glomerular Filtration Rate 60 ML/MIN (>89) 56 ML/MIN (>89) Magnesium Level 1.9 MG/DL (1.5-2.5) 1.9 MG/DL (1.5-2.5) Albumin 2.4 GM/DL (3.4-5.0) Phosphorus Level 3.0 MG/DL (2.5-4.9) Urine Color YELLOW (YELLW/STRAW) Urine Turbidity HAZY (CLEAR) Urine pH 5.5 (5.0-8.5) Urine Specific Mart 1.031 (1.002-1.035) Urine Protein 30 mg/dL (NEG-TRACE) Urine Glucose (UA) NEG mg/dL (NEG) Urine Ketones TRACE mg/dL (NEG) Urine Occult Blood SMALL (NEG) Urine Nitrite NEG (NEG) Urine Bilirubin NEG (NEG) Urine Urobilinogen LESS THAN 2.0 MG/DL (LESS Urine Leukocyte Esterase LARGE (NEG) Urine RBC 69 /hpf (0-3) Urine WBC 30 /hpf (0-5) Urine Renal Epithelial Cells 9 /hpf (NONE) Urine Calcium Oxalate Crystals FEW /hpf (NONE) Urine Yeast (Budding) FEW (NONE) Microscopic Urinalysis Comment CULTURE INDICATED Result Diagram: 06/17/17 0601 06/17/17 0601 Microbiology Microbiology Date/Time Source Procedure Growth Status 06/18/17 04:15 Urine Clean Catch Urine Culture Pending Received 06/16/17 11:00 Urine Catheterized Urine Urine Culture - Preliminary Yeast-Id To Follow Resulted Imaging Last 72 hours Impressions Carotid Artery Ultrasound 06/17/17 0000 Signed Impressions: Service Date/Time: Thursday, June 17, 2017 11:30 - CONCLUSION: Significant atherosclerotic disease in the carotid bifurcations bilaterally without definite evidence of flow-limiting stenosis Eder Perla MD Assessment and Plan Disease Oriented Problem List: (1) Altered mental status (2) UTI (urinary tract infection) (3) Slurred speech Symptom Scale: (1) Confusion (2) Debility Pertinent Non-Medical Issues Psychosocial: Patient was born and raised in [facility]. 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 Recent , his in January 2016, has four children living, two sons and two daughters. Patient was currently admitted from SNF, he was admitted in early May of this year with generalized weakness. Prior to that hospitalization he lived at home with his daughter. He was not driving prior to that admission and was using a walker to ambulate. It has been reported that he has had multiple falls within the last year. Spiritual: Yazidism. Not currently practicing. [employer] Transit [employer] offered, patient declined. Legal: None known. Ethical issues impacting care: None known. . Important Contacts Maryse Lindsey (daughter): [phone] Dhaval Magallon (son): [phone]. [phone] Nika (daughter): [phone] Andrew (son): [phone] . Prognosis Patient has had a progressive decline over the past 11 months. He was living at home with his daughter prior to his May admission, he was able to ambulate at home with a walker and was independent with some ADLs. After his admission in May he was discharged to SNF where he has required more assistance with ADLs and is adequately care for himself, requiring assistance with bathing and eating. Patient is at an ongoing risk for setbacks due to advanced age and multiple comorbidities. Prognosis pending further diagnostic testing and clinical course. Code Status: No Code Plan * CODE STATUS: DNR, NO CODE * Legal decision maker: Pending confirmation from additional children that Maryse will serve as the HCP, POC for health care decisions. * GOALS: Supportive, comfort and quality of life focused. * Symptoms: --confusion: Patient has a history of dementia. Confusion/disorientation improving slightly over hospital course. Acute confusion may be due to UTI, currently on antibiotics. No recommendations at this time. --debility: Patient is at an ongoing risk for increased debility, current bed bound status, recent decline in ADLs over the past 11 months and requiring SNF placement. PT/OT ordered. No recommendations at this time. Attestation To help prompt me to consider important information that might be impacting today's encounter and assessment, information from prior notes written by myself or my colleagues may have been "brought forward" into today's note. My signature on this note, however, is an attestation that I personally performed the exam, history, and/or decision-making noted today, and, unless otherwise indicated, the interactions with patient, family, and staff as well as the review of records all occurred today. I also attest that the listed assessment and stated plan reflect my best clinical judgment today based on the combination of historical information, prior notes, and today's exam/ interactions. When time spent is documented, it refers only to time spent today by the signer, or if indicated, combined time spent today by collaborating physician/nurse practitioner. Svetlana Downey Jun 18, 2017 11:02
[2017-06-18 12:00] VITALS: BP 129/89; PULSE 94; RESP 20; TEMP 96.6; O2SAT 93
--- NOTE | 2017-06-18 23:21 | HHI.PR ---
Subjective Remarks Patient seen this morning. Lying down in bed. Can tell me the year, however very poor attention as before. Overall improved from admission however. He denies any pain. Objective Vital Signs Date Time Temp Pulse Resp B/P (MAP) Pulse Ox O2 Delivery O2 Flow Rate FiO2 06/18/17 12:00 96.6 94 20 129/89 (102) 93 06/18/17 08:00 97.6 104 16 131/84 (100) 92 06/18/17 04:06 96.6 102 19 117/71 (86) 93 06/17/17 23:50 97.0 64 18 149/71 (97) 95 I/O 06/18/17 06/18/17 06/18/17 06/19/17 06/19/17 06/19/17 07:00 15:00 23:00 07:00 15:00 23:00 Intake Total 240 ml 120 ml Output Total 500 ml 1000 ml Balance -260 ml -880 ml Intake Oral 240 ml 120 ml Output Urine Total 500 ml 1000 ml # Bowel Movements 0 1 Result Diagram: 06/17/1760006/17/17 06 Objective Remarks GENERAL: lying in bed.Patient appears comfortable. patient continue midyear, but not Hospital. SKIN: Warm and dry. HEAD: Normocephalic. EYES: No scleral icterus. No injection or drainage. NECK: Supple, trachea midline. No JVD. CARDIOVASCULAR: Regular rate and rhythm without murmurs, gallops, or rubs. RESPIRATORY: Breath sounds equal bilaterally. No accessory muscle use. GASTROINTESTINAL: Abdomen soft, non-tender, nondistended. MUSCULOSKELETAL: No cyanosis, or edema. BACK: Nontender without obvious deformity. No CVA tenderness. A/P Assessment and Plan == 06/18/17. -Repeat urinalysis with improved white blood cells. Urine culture pending. Discharged to SNF on Cipro to complete treatment course. -Mentation has improved somewhat, however still with severe dementia, lack of attention. -Hospice consult requested by family. Hospice will plan to see patient at SNF. //Acute Encephalopathy //History of dementia. -CT head with no acute findings. -Likely secondary to acute UTI versus CHF. -ABG, BNP ordered and pending. //UTI. -Urinalysis with 167 white blood cell. -Continue Broad-spectrum antibiotics. Follow-up urine cultures. -Ultrasound kidneys with kidney stone, no hydronephrosis = 06/16. Noticed that urine culture had not been performed. Ordered. //Hypokalemia. Potassium 6.1 on admission. -Likely secondary to hemolysis dehydration. -Furosemide given. -Repeat ordered and pending. = Resolved after replacement. Continue to monitor and replace as necessary //Coronary artery disease //Accelerated Hypertension admission. //Severe aortic stenosis //Pulmonary hypertension. -High blood pressure systolics in the 220s on admission. -Initially on nicardipine drip. -Chest x-ray reviewed with worsening pulmonary edema. -We'll start on amlodipine, hydralazine for afterload reduction the setting of severe aortic stenosis. Continue to monitor blood pressure adjust medications as necessary. -Continue home medications. Adjust medications as necessary -06/16. Patient not tolerating by mouth medications. Stop Lasix due to euvolemic. Will hold for now. //Diabetes mellitus. Chronic. -Diabetic diet. Insulin sliding scale. Continue to monitor blood sugars //Hyponatremia. Sodium 132 on admission. Repeat labs ordered and pending. //GERD. Chronic. Continue PPI. //Lipidemia. Chronic. Continue statin. //Insomnia. Hold Ambien due to altered mental status. //DVT prophylaxis. SCDs. Heparin subcutaneous. Discharge Planning discharged SNF with antibiotics to complete treatment course. Patient will need follow-up with neurology, cardiology. Hospice to see patient at SNF. Brett Harper MD Jun 18, 2017 23:21
--- NOTE | 2017-06-18 23:29 | HHI.DS ---
Discharge Summary Admission Date Jun 15, 2017 at 07:24 Discharge Date: Jun 18, 2017 Admitting Diagnosis AMS, UTI (1) UTI (urinary tract infection) ICD Code: N39.0 - Urinary tract infection, site not specified Status: Acute (2) Acute exacerbation of CHF (congestive heart failure) ICD Code: I50.9 - Heart failure, unspecified Status: Acute Procedures no invasive procedures. Brief History - From Admission 82-year-old male with a history of diabetes, CHF, coronary artery disease, severe aortic stenosis, who presents with altered mental status. Family not in the room at time of examination. History is severely limited as patient is a very poor historian. Patient mumbling, appears confused. He does follow simple commands, and is moving all extremities. History is obtained from ER team and chart review. Patient reported to be confused recently. Workup in ER with urinalysis elevated white blood cells, with CT head no acute findings. Chest x-ray with pulmonary edema. Urinalysis with white blood cell clumps. CBC/BMP: 06/17/17 0601 06/17/17 0601 Significant Findings Laboratory Tests Test 06/16/17 05:59 06/17/17 06:01 06/18/17 04:15 White Blood Count 11.4 TH/MM3 (4.0-11.0) Red Blood Count 4.29 MIL/MM3 (4.50-5.90) 4.19 MIL/MM3 (4.50-5.90) Hemoglobin 12.2 GM/DL (13.0-17.0) 12.0 GM/DL (13.0-17.0) Hematocrit 37.8 % (39.0-51.0) 37.3 % (39.0-51.0) Mean Platelet Volume 6.8 FL (7.0-11.0) Neutrophils (%) (Auto) 77.6 % (16.0-70.0) 77.5 % (16.0-70.0) Lymphocytes (%) (Auto) 8.7 % (9.0-44.0) Monocytes (%) (Auto) 8.5 % (0.0-8.0) Eosinophils (%) (Auto) 4.5 % (0.0-4.0) 4.1 % (0.0-4.0) Neutrophils # (Auto) 8.8 TH/MM3 (1.8-7.7) Monocytes # (Auto) 1.0 TH/MM3 (0-0.9) Eosinophils # (Auto) 0.5 TH/MM3 (0-0.4) Blood Urea Nitrogen 21 MG/DL (7-18) 20 MG/DL (7-18) Random Glucose 111 MG/DL (74-106) 119 MG/DL (74-106) Calcium Level 8.1 MG/DL (8.5-10.1) 8.1 MG/DL (8.5-10.1) Estimat Glomerular Filtration Rate 60 ML/MIN (>89) 56 ML/MIN (>89) Platelet Count 121 TH/MM3 (150-450) Lymphocytes # (Auto) 0.8 TH/MM3 (1.0-4.8) Albumin 2.4 GM/DL (3.4-5.0) Urine Turbidity HAZY (CLEAR) Urine Protein 30 mg/dL (NEG-TRACE) Urine Ketones TRACE mg/dL (NEG) Urine Occult Blood SMALL (NEG) Urine Leukocyte Esterase LARGE (NEG) Urine RBC 69 /hpf (0-3) Urine WBC 30 /hpf (0-5) Urine Calcium Oxalate Crystals FEW /hpf (NONE) Urine Yeast (Budding) FEW (NONE) Imaging Last Impressions Carotid Artery Ultrasound 06/17/17 0000 Signed Impressions: Service Date/Time: Saturday, June 17, 2017 11:30 - CONCLUSION: Significant atherosclerotic disease in the carotid bifurcations bilaterally without definite evidence of flow-limiting stenosis Eder Perla MD Chest X-Ray 06/15/17 0755 Signed Impressions: Service Date/Time: Thursday, June 15, 2017 08:17 - CONCLUSION: Worsening appearance of the chest. Tommy Ardon MD Renal Ultrasound 06/15/17 0000 Signed Impressions: Service Date/Time: Thursday, June 15, 2017 09:36 - CONCLUSION: 1. Bilateral renal cysts and echogenic parenchyma identified consistent with medical renal disease. 2. Left pleural effusion. 3. Nonobstructing right renal calculus. 4. Trace ascites. Tommy Ardon MD Head CT 06/15/17 0000 Signed Impressions: Service Date/Time: Thursday, June 15, 2017 05:44 - CONCLUSION: No bleed or other acute intracranial abnormality. Eder Vásquez MD Hospital Course Urinalysis on admission with elevated WBC count. Unfortunately reflex urine culture was not done upon admission. Patient was started on IV antibiotics with some improvement. Patient noted to have some confusion sitting up, better lying down carotid ultrasound does show some stenosis bilaterally, however no hemodynamically significant stenosis. Neurology was consult to. Cardiology was consult and for severe aortic stenosis. Patient denied TAPVR in the past. Per discussion with daughter, hospice was consult and, however was unable to see the patient during this admission. Will see patient at SNF. Continue antibiotics to complete treatment course. For problem-based summary from most recent progress note, please see below. == 06/18/17. -Repeat urinalysis with improved white blood cells. Urine culture pending. Discharged to SNF on Cipro to complete treatment course. -Mentation has improved somewhat, however still with severe dementia, lack of attention. -Hospice consult requested by family. Hospice will plan to see patient at SNF. //Acute Encephalopathy //History of dementia. -CT head with no acute findings. -Likely secondary to acute UTI versus CHF. -ABG, BNP ordered and pending. //UTI. -Urinalysis with 167 white blood cell. -Continue Broad-spectrum antibiotics. Follow-up urine cultures. -Ultrasound kidneys with kidney stone, no hydronephrosis = 06/16. Noticed that urine culture had not been performed. Ordered. //Hypokalemia. Potassium 6.1 on admission. -Likely secondary to hemolysis dehydration. -Furosemide given. -Repeat ordered and pending. = Resolved after replacement. Continue to monitor and replace as necessary //Coronary artery disease //Accelerated Hypertension admission. //Severe aortic stenosis //Pulmonary hypertension. -High blood pressure systolics in the 220s on admission. -Initially on nicardipine drip. -Chest x-ray reviewed with worsening pulmonary edema. -We'll start on amlodipine, hydralazine for afterload reduction the setting of severe aortic stenosis. Continue to monitor blood pressure adjust medications as necessary. -Continue home medications. Adjust medications as necessary -06/16. Patient not tolerating by mouth medications. Stop Lasix due to euvolemic. Will hold for now. //Diabetes mellitus. Chronic. -Diabetic diet. Insulin sliding scale. Continue to monitor blood sugars //Hyponatremia. Sodium 132 on admission. Repeat labs ordered and pending. //GERD. Chronic. Continue PPI. //Lipidemia. Chronic. Continue statin. //Insomnia. Hold Ambien due to altered mental status. //DVT prophylaxis. SCDs. Heparin subcutaneous. Discharge Planning continuing antibiotics for UTI. Unfortunately cultures were not done on admission palliative care following. Appreciate assistance. Pt Condition on Discharge: Good Discharge Disposition: Discharge to SNF Discharge Time: > 30 minutes Discharge Instructions DIET: Follow Instructions for: Diabetic Diet Activities you can perform: Regular-No Restrictions Follow up Referrals: Cardiology - 1 Week with Lynne Corona MD Neurology - 2 Weeks with Ayse Barry MD New Medications: Ciprofloxacin (Cipro) 500 Mg Tab 500 MG PO BID for Infection for 5 Days, TAB 0 Refills Continued Medications: Alprazolam (Xanax) 0.25 Mg Tab 0.25 MG PO DAILY PRN for ANXIETY, TAB 0 Refills Aspirin (Aspirin) 325 Mg Tab 325 MG PO DAILY for DC, #30 TAB 0 Refills Atorvastatin (Lipitor) 10 Mg Tab 10 MG PO HS for hld, #30 TAB 0 Refills Clopidogrel (Plavix) 75 Mg Tab 75 MG PO DAILY for mi for 30 Days, TAB Metoprolol Tartrate (Metoprolol Tartrate) 50 Mg Tab 50 MG PO BID, #60 TAB 0 Refills Nitroglycerin SL (Nitroglycerin SL) 0.4 Mg Subl 0.4 MG SL DIRECTED PRN for CHEST PAIN, #100 TAB.SL 0 Refills ONE TABLET UNDER THE TONGUE NEEDED FOR CHEST PAIN, MAY REPEAT EVERY FIVE MINUTES FOR A TOTAL OF 3 DOSES OR CALL 911 IF NO RELIEF Omeprazole (Omeprazole) 20 Mg Tab 20 MG PO DAILY, #30 TAB 0 Refills Sennosides-Docusate Sodium (Senna Plus 8.6-50 mg) 1 Tab Tab 1 TAB PO BID for Constipation for 30 Days, TAB Sitagliptin (Januvia) 100 Mg Tab 100 MG PO DAILY for Blood Sugar Management, #30 TAB 0 Refills Trazodone (Trazodone) 100 Mg Tablet 200 MG PO HS for Control Depression, #30 TAB 0 Refills Discontinued Medications: Zolpidem (Ambien) 5 Mg Tab 5 MG PO HS PRN for INSOMNIA, #10 TAB 0 Refills Brett Harper MD Jun 18, 2017 23:29
== END 2017-06-18 17:52 | DRG 689 ==
LOC: NEPE 05:28 → NEDA 07:24 → N07B 12:57
PROVIDERS: ADMIT Internal Medicine; ATTEND Internal Medicine
DX: N39.0 Urinary tract infection, site not specified (principal); G93.41 Metabolic encephalopathy; I50.23 Acute on chronic systolic (congestive) heart failure; E87.1 Hypo-osmolality and hyponatremia; I11.0 Hypertensive heart disease with heart failure; F03.90 Unspecified dementia, unspecified severity, without behavioral disturbance, psychotic disturbance, mood disturbance, and anxiety; E86.0 Dehydration; E11.9 Type 2 diabetes mellitus without complications; E78.5 Hyperlipidemia, unspecified; E87.6 Hypokalemia; F22 Delusional disorders; G47.00 Insomnia, unspecified; H91.90 Unspecified hearing loss, unspecified ear; I25.10 Atherosclerotic heart disease of native coronary artery without angina pectoris; I27.2 Other secondary pulmonary hypertension; I35.0 Nonrheumatic aortic (valve) stenosis; I65.23 Occlusion and stenosis of bilateral carotid arteries; K21.9 Gastro-esophageal reflux disease without esophagitis; N20.0 Calculus of kidney; Z51.5 Encounter for palliative care; Z66 Do not resuscitate; Z72.0 Tobacco use; Z95.5 Presence of coronary angioplasty implant and graft
CPT/HCPCS: 36600; 51702; 70450; 71010; 76775; 80048; 80069; 80307; 81001; 82435; 82550; 82565; 82805; 82947; 82948; 83605; 83735; 83880; 84132; 84295; 84484; 84520; 85025; 85384; 85610; 85730; 86850; 86900; 86901; 87040; 87086; 93005; 93880; 96365; 96375; J1940; J2310; J2543; J3370; J7030; J7050